=== PATIENT | female | born 1960 | race Caucasian/White ===

== ENCOUNTER → 2016-12-24 | Outpatient (CLI) | payer BC ==
[~2016-12-24] MED LIST: /PANT40TA; /WARF25TA; AZULFIDINE; BENADRYL; DARV100T; DIOV80TA; ENBREL; FERR325T; FOLI1TAB; HYDR-727; HYDROXYCHLOROQUINE; METHOTREXATE; OS CAL; OXYC10TA97; OXYCODONE; PREDPOW10; VALS80CA; VIT D; VITAMIN D50000 UNT
--- NOTE | 2016-12-24 11:06 | REP ---
Clinical: Left lower extremity pain and swelling. Technique: Blackmon scale and color Doppler evaluation using linear high frequency transducer. Findings: Ultrasound examination of the left lower extremity deep venous structures from the common femoral vein to the popliteal vein demonstrates normal compressibility flow and wave patterns in response to respiration and augmentation. There is no evidence for deep venous thrombosis. Impression: No evidence for deep venous thrombosis. Signed by Garret Rogers MD 12/24/2016 10:57 A
== END ==
LOC: M RAD 10:02
PROVIDERS: ATTEND Internal Medicine
DX: R60.0 Localized edema (principal)

== ENCOUNTER → 2016-12-27 | Outpatient (REF) | payer BC | LOC: M SFHCPLAZ 16:49 | PROVIDERS: ATTEND Nurse Practitioner Adult Health | DX: R68.89 Other general symptoms and signs (principal) ==

== ENCOUNTER → 2017-02-03 | Outpatient (CLI) | payer BC ==
[2017-02-03 19:45] LABS: ALT/SGPT 38 U/L (12-78); AST/SGOT 22 U/L (15-37); CREATININE FOR GFR 0.82 MG/DL (0.55-1.02); GLOMERULAR FILTRATION RATE > 60.0 (>51)
[2017-02-03 20:24] LABS: BASO % 0.5 % (0.0-1.0); EOS # 0.1 K/mm3 (0.0-0.50); EOS % 1.5 % (0.0-3.0); LYMPH # 1.5 K/mm3 (1.5-4.5); LYMPH % 28.1 % (24.0-44.0); MEAN CORPUSCULAR HEMOGLOBIN 28.4 pg (27.0-33.0); MEAN CORPUSCULAR HGB CONC 32.1 g/dl (32.0-36.5); MEAN CORPUSCULAR VOLUME 88.3 fl (80.0-96.0); MONO # 0.3 K/mm3 (0.0-0.8); MONO % 5.2 % (0.0-5.0); NEUTROPHILS # 3.2 K/mm3 (1.8-7.7); NEUTROPHILS % 62.4 % (36.0-66.0); RED CELL DISTRIBUTION WIDTH 16.2 % (11.5-14.5); WHITE BLOOD COUNT 5.1 K/mm3 (4.0-10.0)
== END ==
LOC: M WUC 16:31
PROVIDERS: ATTEND Physician Assistant Medical
DX: Z51.81 Encounter for therapeutic drug level monitoring (principal); Z79.899 Other long term (current) drug therapy; M06.09 Rheumatoid arthritis without rheumatoid factor, multiple sites; M06.332 Rheumatoid nodule, left wrist

== ENCOUNTER → 2017-05-10 | Outpatient (CLI) | payer BC ==
[2017-05-10 12:59] LABS: ALT/SGPT 35 U/L (12-78); AST/SGOT 27 U/L (15-37); BASO % 0.9 % (0.0-1.0); CREATININE FOR GFR 0.78 MG/DL (0.55-1.02); EOS # 0.1 K/mm3 (0.0-0.50); EOS % 2.2 % (0.0-3.0); GLOMERULAR FILTRATION RATE > 60.0 (>51); LYMPH # 1.1 K/mm3 (1.5-4.5); LYMPH % 24.5 % (24.0-44.0); MEAN CORPUSCULAR HEMOGLOBIN 29.8 pg (27.0-33.0); MEAN CORPUSCULAR HGB CONC 33.4 g/dl (32.0-36.5); MEAN CORPUSCULAR VOLUME 89.1 fl (80.0-96.0); MONO # 0.3 K/mm3 (0.0-0.8); MONO % 5.7 % (0.0-5.0); NEUTROPHILS # 2.8 K/mm3 (1.8-7.7); NEUTROPHILS % 64.5 % (36.0-66.0); RED CELL DISTRIBUTION WIDTH 15.9 % (11.5-14.5); WHITE BLOOD COUNT 4.4 K/mm3 (4.0-10.0)
== END ==
LOC: M WUC 10:33
PROVIDERS: ATTEND Physician Assistant Medical
DX: Z79.899 Other long term (current) drug therapy (principal)

== ENCOUNTER → 2017-05-10 | Outpatient (CLI) | payer BC ==
[2017-05-10 13:01] LABS: ALBUMIN 3.5 GM/DL (3.2-5.2); ALBUMIN/GLOBULIN RATIO 1.17 (1.00-1.93); ALKALINE PHOSPHATASE 81 U/L (45-117); ALT/SGPT 36 U/L (12-78); ANION GAP 6 MEQ/L (8-16); AST/SGOT 28 U/L (15-37); BILIRUBIN,TOTAL 0.8 MG/DL (0.2-1.0); BLOOD UREA NITROGEN 15 MG/DL (7-18); CALCIUM LEVEL 8.5 MG/DL (8.5-10.1); CARBON DIOXIDE LEVEL 29 MEQ/L (21-32); CHLORIDE LEVEL 107 MEQ/L (98-107); CHOLESTEROL LEVEL 165 MG/DL (<200); CREATININE FOR GFR 0.81 MG/DL (0.55-1.02); GLOMERULAR FILTRATION RATE > 60.0 (>51); GLUCOSE, FASTING 89 MG/DL (70-105); POTASSIUM SERUM 3.6 MEQ/L (3.5-5.1); SODIUM LEVEL 142 MEQ/L (136-145); TOTAL PROTEIN 6.5 GM/DL (6.4-8.2); TRIGLYCERIDES LEVEL 118 MG/DL (<150)
== END ==
LOC: M WUC 10:29
PROVIDERS: ATTEND Internal Medicine
DX: Z00.00 Encounter for general adult medical examination without abnormal findings (principal); I10 Essential (primary) hypertension; E78.00 Pure hypercholesterolemia, unspecified

== ENCOUNTER → 2017-10-15 | Outpatient (CLI) | payer BC ==
[2017-10-15 18:19] LABS: BASO # 0.1 10^3/uL (0.0-0.2); BASO % 0.8 % (0.0-1.0); EOS % 0.6 % (0.0-3.0); IMMATURE GRANULOCYTE % 0.6 % (0-0); LYMPH # 0.7 10^3/uL (1.5-4.5); LYMPH % 10.7 % (24.0-44.0); MEAN CORPUSCULAR HEMOGLOBIN 28.1 pg (27.0-33.0); MEAN CORPUSCULAR HGB CONC 31.4 g/dl (32.0-36.5); MEAN CORPUSCULAR VOLUME 89.3 fl (80.0-96.0); MONO # 0.3 10^3/uL (0.0-0.8); MONO % 4.6 % (0.0-5.0); NEUTROPHILS # 5.4 10^3/uL (1.8-7.7); NEUTROPHILS % 82.7 % (36.0-66.0); PLATELET COUNT, AUTOMATED 371 10^3/uL (150-450); RED CELL DISTRIBUTION WIDTH 16.4 % (11.5-14.5); WHITE BLOOD COUNT 6.6 10^3/uL (4.0-10.0)
[2017-10-15 18:26] LABS: ALT/SGPT 34 U/L (12-78); AST/SGOT 23 U/L (7-37); CREATININE FOR GFR 0.83 MG/DL (0.55-1.02); GLOMERULAR FILTRATION RATE > 60.0 (>51)
[2017-10-15 19:02] LABS: ERYTHROCYTE SEDIMENTATION RATE 60 mm/hr (0-30)
== END ==
LOC: M WUC 16:20
PROVIDERS: ATTEND Physician Assistant Medical
DX: Z51.81 Encounter for therapeutic drug level monitoring (principal); Z79.899 Other long term (current) drug therapy; M06.9 Rheumatoid arthritis, unspecified

== ENCOUNTER → 2018-02-11 | Outpatient (CLI) | payer BC ==
[2018-02-11 16:48] LABS: BASO % 0.7 % (0.0-1.0); EOS # 0.2 10^3/uL (0.0-0.50); EOS % 3.1 % (0.0-3.0); HEMATOCRIT 33.1 % (36.0-47.0); HEMOGLOBIN 10.3 g/dl (12.0-15.5); IMMATURE GRANULOCYTE % 0.4 % (0-3.0); LYMPH # 1.3 10^3/uL (1.5-4.5); LYMPH % 23.7 % (24.0-44.0); MEAN CORPUSCULAR HEMOGLOBIN 27.5 pg (27.0-33.0); MEAN CORPUSCULAR HGB CONC 31.1 g/dl (32.0-36.5); MEAN CORPUSCULAR VOLUME 88.5 fl (80.0-96.0); MONO # 0.5 10^3/uL (0.0-0.8); NEUTROPHILS # 3.4 10^3/uL (1.8-7.7); NEUTROPHILS % 63.1 % (36.0-66.0); PLATELET COUNT, AUTOMATED 340 10^3/uL (150-450); RED BLOOD COUNT 3.74 10^6/uL (4.00-5.40); RED CELL DISTRIBUTION WIDTH 17.2 % (11.5-14.5); WHITE BLOOD COUNT 5.4 10^3/uL (4.0-10.0)
[2018-02-11 17:17] LABS: ERYTHROCYTE SEDIMENTATION RATE 77 mm/hr (0-30)
[2018-02-11 17:21] LABS: ALT/SGPT 35 U/L (12-78); AST/SGOT 21 U/L (7-37); C REACTIVE PROTEIN QUANTITATIV 0.75 MG/DL (0.00-0.30); CREATININE FOR GFR 0.79 MG/DL (0.55-1.30); GLOMERULAR FILTRATION RATE > 60.0 (>51)
== END ==
LOC: M LAB 16:06
DX: Z51.81 Encounter for therapeutic drug level monitoring (principal); Z79.899 Other long term (current) drug therapy
CPT/HCPCS: 84460

== ENCOUNTER → 2018-06-03 | Outpatient (CLI) | payer BC ==
[2018-06-03 17:44] LABS: ALBUMIN 3.7 GM/DL (3.2-5.2); ALBUMIN/GLOBULIN RATIO 0.93 (1.00-1.93); ALKALINE PHOSPHATASE 90 U/L (45-117); ALT/SGPT 37 U/L (12-78); ANION GAP 6 MEQ/L (8-16); AST/SGOT 21 U/L (7-37); BILIRUBIN,TOTAL 0.8 MG/DL (0.2-1.0); BLOOD UREA NITROGEN 14 MG/DL (7-18); CARBON DIOXIDE LEVEL 28 MEQ/L (21-32); CHLORIDE LEVEL 107 MEQ/L (98-107); CREATININE FOR GFR 0.89 MG/DL (0.55-1.30); GLOMERULAR FILTRATION RATE > 60.0 (>51); GLUCOSE, FASTING 109 MG/DL (70-100); MAGNESIUM LEVEL 2.2 MG/DL (1.8-2.4); POTASSIUM SERUM 3.5 MEQ/L (3.5-5.1); SODIUM LEVEL 141 MEQ/L (136-145); TOTAL PROTEIN 7.7 GM/DL (6.4-8.2)
[2018-06-05 06:56] LABS: TOTAL 25(OH) VITAMIN D 78.4 NG/ML (30.0-100.0)
== END ==
LOC: M WUC 15:39
DX: I10 Essential (primary) hypertension (principal); E55.9 Vitamin D deficiency, unspecified
CPT/HCPCS: 83735

== ENCOUNTER → 2018-06-07 | Outpatient (REF) | payer BC ==
[2018-06-09 14:15] LABS: HPV HYBRID CAPTURE II Negative (Negative)
== END ==
LOC: M SFHCWAGY 16:16
DX: Z12.4 Encounter for screening for malignant neoplasm of cervix (principal)
CPT/HCPCS: G0123

== ENCOUNTER → 2018-07-27 | Outpatient (CLI) | payer BC | LOC: M WUC 16:06 | DX: R05 Cough (principal) | CPT/HCPCS: 71046 ==

== ENCOUNTER → 2018-07-27 | Outpatient (REF) ==
[2018-07-30 00:20] LABS: QUANTIFERON GOLD TB Negative (Negative); TB Test (QFT) Antigen 0.04 IU/mL (.); TB Test (QFT) Antigen Minus Ni <0.01 IU/mL (.); TB Test (QFT) Mitogen 9.04 IU/mL (.); TB Test (QFT) Nil 0.06 IU/mL (.)
== END ==
LOC: M WUC 16:17
DX: Z00.00 Encounter for general adult medical examination without abnormal findings (principal)

== ENCOUNTER → 2018-07-27 | Outpatient (CLI) | payer BC ==
[2018-07-27 20:16] LABS: BASO % 0.5 % (0.0-1.0); EOS # 0.1 10^3/uL (0.0-0.50); EOS % 2.2 % (0.0-3.0); HEMATOCRIT 33.7 % (36.0-47.0); HEMOGLOBIN 10.3 g/dl (12.0-15.5); IMMATURE GRANULOCYTE % 0.5 % (0-3.0); LYMPH # 1.5 10^3/uL (1.5-4.5); LYMPH % 22.9 % (24.0-44.0); MEAN CORPUSCULAR HEMOGLOBIN 26.8 pg (27.0-33.0); MEAN CORPUSCULAR HGB CONC 30.6 g/dl (32.0-36.5); MEAN CORPUSCULAR VOLUME 87.8 fl (80.0-96.0); MONO # 0.5 10^3/uL (0.0-0.8); NEUTROPHILS # 4.3 10^3/uL (1.8-7.7); NEUTROPHILS % 65.9 % (36.0-66.0); PLATELET COUNT, AUTOMATED 347 10^3/uL (150-450); RED BLOOD COUNT 3.84 10^6/uL (4.00-5.40); WHITE BLOOD COUNT 6.5 10^3/uL (4.0-10.0)
[2018-07-27 20:47] LABS: ERYTHROCYTE SEDIMENTATION RATE 74 mm/hr (0-30)
[2018-07-27 20:50] LABS: ALT/SGPT 54 U/L (12-78); AST/SGOT 37 U/L (7-37); C REACTIVE PROTEIN QUANTITATIV 1.16 MG/DL (0.00-0.30); CREATININE FOR GFR 0.76 MG/DL (0.55-1.30); GLOMERULAR FILTRATION RATE > 60.0 (>51)
== END ==
LOC: M WUC 16:10
DX: Z51.81 Encounter for therapeutic drug level monitoring (principal); Z79.52 Long term (current) use of systemic steroids; Z79.899 Other long term (current) drug therapy; M06.9 Rheumatoid arthritis, unspecified
CPT/HCPCS: 84460

== ENCOUNTER → 2018-10-04 | Outpatient (CLI) | payer BC | LOC: M RAD 14:57 | DX: M79.662 Pain in left lower leg (principal) | CPT/HCPCS: 93971 ==

== ENCOUNTER → 2018-11-13 | Outpatient (CLI) | payer BC ==
[2018-11-13 19:39] LABS: BASO % 0.6 % (0.0-1.0); EOS # 0.1 10^3/uL (0.0-0.50); EOS % 2.2 % (0.0-3.0); HEMOGLOBIN 10.6 g/dl (12.0-15.5); LYMPH # 1.5 10^3/uL (1.5-4.5); LYMPH % 27.9 % (24.0-44.0); MEAN CORPUSCULAR HEMOGLOBIN 26.9 pg (27.0-33.0); MEAN CORPUSCULAR HGB CONC 31.2 g/dl (32.0-36.5); MEAN CORPUSCULAR VOLUME 86.3 fl (80.0-96.0); MONO # 0.5 10^3/uL (0.0-0.8); NEUTROPHILS # 3.3 10^3/uL (1.8-7.7); NEUTROPHILS % 60.1 % (36.0-66.0); PLATELET COUNT, AUTOMATED 350 10^3/uL (150-450); RED BLOOD COUNT 3.94 10^6/uL (4.00-5.40); WHITE BLOOD COUNT 5.4 10^3/uL (4.0-10.0)
[2018-11-13 19:50] LABS: ALT/SGPT 38 U/L (12-78); C REACTIVE PROTEIN QUANTITATIV 1.01 MG/DL (0.00-0.30); CREATININE FOR GFR 0.91 MG/DL (0.55-1.30); GLOMERULAR FILTRATION RATE > 60.0 (>51)
[2018-11-13 20:15] LABS: ERYTHROCYTE SEDIMENTATION RATE 50 mm/hr (0-30)
== END ==
LOC: M WUC 16:35
PROVIDERS: ATTEND Internal Medicine Rheumatology
DX: Z79.899 Other long term (current) drug therapy (principal)

== ENCOUNTER → 2018-11-13 | Outpatient (CLI) | payer BC ==
--- NOTE | 2018-11-14 02:54 | REP ---
Clinical: Abnormal chest x-ray. Follow-up. Technique: PA and lateral. Comparison: 07/27/2018. Findings: Mediastinum and visualized cardiac silhouette are within normal limits and stable. Lung licea demonstrate chronic-appearing bibasilar changes primarily suspected within right middle lobe and lingula. No effusion. No pneumothorax. Degenerative changes to the thoracic spine and right shoulder noted. Impression: Chronic basilar changes suggested. If the patient remains symptomatic consider chest CT for further investigation. Electronically Signed by Garret Rogers MD 11/14/2018 02:46 A
== END ==
LOC: M WUC 16:33
PROVIDERS: ATTEND Internal Medicine
DX: R91.8 Other nonspecific abnormal finding of lung field (principal)

== ENCOUNTER → 2018-12-14 | Outpatient (CLI) | payer BC ==
--- NOTE | 2018-12-14 15:59 | PFTRPT ---
Height: 64.00 Inches Weight: 245.00 Lbs BSA: 2.13 Diagnosis: R06.02 DATE OF PROCEDURE: 12/14/2018 ORDERED BY: Margo Rivas Spirometry: Pre and post bronchodilator study of excellent technical quality. Forced vital capacity reduced. FEV1 in proportion. Obstructive index is, therefore, normal. Flow Volume Loop: Expiratory limb of the flow volume loop does suggest at least some degree of nonspecific flow rate limitation. No significant bronchodilator response is identified. Lung Volumes: Total lung capacity normal. Residual volume borderline for air trapping. Diffusing Capacity: Diffusing capacity is reduced but does correct for alveolar volume. Hemoglobin: Hemoglobin is mildly reduced at 11. Airway Mechanics: Airway resistance and conductance are normal. IMPRESSION: Air trapping with diffusing capacity impairment and mild anemia. Please correlate clinically. MTDD
== END ==
LOC: M CARPUL 14:41
PROVIDERS: ATTEND Nurse Practitioner Adult Health
DX: R06.02 Shortness of breath (principal); R91.8 Other nonspecific abnormal finding of lung field

== ENCOUNTER → 2019-02-10 | Outpatient (CLI) | payer BC ==
[~2019-02-10] MED LIST changes: -/PANT40TA; -/WARF25TA; +COUM1TAB18; +PROT1TAB2
[2019-02-10 18:44] LABS: BASO % 0.6 % (0.0-1.0); EOS # 0.1 10^3/uL (0.0-0.50); EOS % 2.2 % (0.0-3.0); HEMATOCRIT 31.9 % (36.0-47.0); HEMOGLOBIN 10.1 g/dl (12.0-15.5); LYMPH # 1.8 10^3/uL (1.5-4.5); LYMPH % 28.4 % (24.0-44.0); MEAN CORPUSCULAR HEMOGLOBIN 27.7 pg (27.0-33.0); MEAN CORPUSCULAR HGB CONC 31.7 g/dl (32.0-36.5); MEAN CORPUSCULAR VOLUME 87.6 fl (80.0-96.0); MONO # 0.6 10^3/uL (0.0-0.8); MONO % 9.5 % (0.0-5.0); NEUTROPHILS # 3.8 10^3/uL (1.8-7.7); NEUTROPHILS % 58.7 % (36.0-66.0); PLATELET COUNT, AUTOMATED 324 10^3/uL (150-450); RED BLOOD COUNT 3.64 10^6/uL (4.00-5.40); WHITE BLOOD COUNT 6.5 10^3/uL (4.0-10.0)
[2019-02-10 19:04] LABS: ALT/SGPT 41 U/L (12-78); C REACTIVE PROTEIN QUANTITATIV 0.65 MG/DL (0.00-0.30); CREATININE FOR GFR 0.82 MG/DL (0.55-1.30); GLOMERULAR FILTRATION RATE > 60.0 (>51)
[2019-02-10 19:50] LABS: ERYTHROCYTE SEDIMENTATION RATE 52 mm/hr (0-30)
== END ==
LOC: M WUC 16:24
PROVIDERS: ATTEND Internal Medicine Rheumatology
DX: M06.09 Rheumatoid arthritis without rheumatoid factor, multiple sites (principal); Z79.899 Other long term (current) drug therapy; Z79.52 Long term (current) use of systemic steroids

== ENCOUNTER → 2019-06-05 | Outpatient (CLI) | payer BC ==
[2019-06-05 13:23] LABS: ALBUMIN 3.4 GM/DL (3.2-5.2); ALT/SGPT 29 U/L (12-78); BILIRUBIN,TOTAL 0.7 MG/DL (0.2-1.0); BLOOD UREA NITROGEN 18 MG/DL (7-18); CALCIUM LEVEL 8.4 MG/DL (8.5-10.1); CARBON DIOXIDE LEVEL 28 MEQ/L (21-32); CHLORIDE LEVEL 107 MEQ/L (98-107); CHOLESTEROL LEVEL 169 MG/DL (<200); CHOLESTEROL RISK RATIO 3.072 (<5); CREATININE FOR GFR 0.89 MG/DL (0.55-1.30); GLOMERULAR FILTRATION RATE > 60.0 (>51); GLUCOSE, FASTING 90 MG/DL (70-100); HDL CHOLESTEROL 55 MG/DL (>40); LDL CHOLESTEROL 98 MG/DL (<100); MAGNESIUM LEVEL 2.1 MG/DL (1.8-2.4); NON-HDL-C 114 MG/DL; POTASSIUM SERUM 3.8 MEQ/L (3.5-5.1); SODIUM LEVEL 142 MEQ/L (136-145); TOTAL PROTEIN 7.1 GM/DL (6.4-8.2); TRIGLYCERIDES LEVEL 79 MG/DL (<150)
== END ==
LOC: M WUC 12:03
PROVIDERS: ATTEND Internal Medicine
DX: I10 Essential (primary) hypertension (principal); E78.00 Pure hypercholesterolemia, unspecified

== ENCOUNTER → 2019-06-05 | Outpatient (CLI) | payer BC ==
[2019-06-05 12:57] LABS: BASO % 0.8 % (0.0-1.0); EOS # 0.1 10^3/uL (0.0-0.50); EOS % 2.8 % (0.0-3.0); HEMATOCRIT 32.5 % (36.0-47.0); HEMOGLOBIN 10.1 g/dl (12.0-15.5); LYMPH # 1.1 10^3/uL (1.5-4.5); LYMPH % 22.3 % (24.0-44.0); MEAN CORPUSCULAR HEMOGLOBIN 27.4 pg (27.0-33.0); MEAN CORPUSCULAR HGB CONC 31.1 g/dl (32.0-36.5); MEAN CORPUSCULAR VOLUME 88.1 fl (80.0-96.0); MONO # 0.4 10^3/uL (0.0-0.8); MONO % 8.1 % (0.0-5.0); NEUTROPHILS # 3.1 10^3/uL (1.8-7.7); NEUTROPHILS % 65.6 % (36.0-66.0); PLATELET COUNT, AUTOMATED 313 10^3/uL (150-450); RED BLOOD COUNT 3.69 10^6/uL (4.00-5.40); WHITE BLOOD COUNT 4.7 10^3/uL (4.0-10.0)
[2019-06-05 13:20] LABS: ALT/SGPT 30 U/L (12-78); CREATININE FOR GFR 0.93 MG/DL (0.55-1.30); GLOMERULAR FILTRATION RATE > 60.0 (>51)
[2019-06-05 14:04] LABS: ERYTHROCYTE SEDIMENTATION RATE 62 mm/hr (0-30)
== END ==
LOC: M WUC 12:00
PROVIDERS: ATTEND Physician Assistant Medical
DX: Z79.899 Other long term (current) drug therapy (principal)

== ENCOUNTER → 2019-08-11 | Outpatient (CLI) | payer BC ==
[2019-08-11 18:10] LABS: BASO % 0.8 % (0.0-1.0); EOS # 0.1 10^3/uL (0.0-0.5); EOS % 2.7 % (0.0-3.0); HEMATOCRIT 32.3 % (36.0-47.0); HEMOGLOBIN 9.9 g/dl (12.0-15.5); LYMPH # 1.3 10^3/uL (1.5-5.0); LYMPH % 25.8 % (24.0-44.0); MEAN CORPUSCULAR HEMOGLOBIN 26.3 pg (27.0-33.0); MEAN CORPUSCULAR HGB CONC 30.7 g/dl (32.0-36.5); MEAN CORPUSCULAR VOLUME 85.9 fl (80.0-96.0); MONO # 0.6 10^3/uL (0.0-0.8); MONO % 11.2 % (0.0-5.0); NEUTROPHILS # 3.1 10^3/uL (1.5-8.5); NEUTROPHILS % 58.9 % (36.0-66.0); PLATELET COUNT, AUTOMATED 319 10^3/uL (150-450); RED BLOOD COUNT 3.76 10^6/uL (4.00-5.40); WHITE BLOOD COUNT 5.2 10^3/uL (4.0-10.0)
[2019-08-11 18:15] LABS: ALT/SGPT 32 U/L (12-78); C REACTIVE PROTEIN QUANTITATIV 0.79 MG/DL (0.00-0.30); CREATININE FOR GFR 0.88 MG/DL (0.55-1.30); GLOMERULAR FILTRATION RATE > 60.0 (>51)
[2019-08-11 18:58] LABS: ERYTHROCYTE SEDIMENTATION RATE 54 mm/hr (0-30)
== END ==
LOC: M WUC 16:01
PROVIDERS: ATTEND Physician Assistant Medical
DX: Z79.899 Other long term (current) drug therapy (principal)

== ENCOUNTER → 2019-12-01 | Outpatient (CLI) | payer BC ==
[2019-12-01 17:50] LABS: BASO # 0.1 10^3/uL (0.0-0.2); BASO % 0.8 % (0.0-1.0); EOS # 0.1 10^3/uL (0.0-0.5); EOS % 1.9 % (0.0-3.0); HEMATOCRIT 34.6 % (36.0-47.0); HEMOGLOBIN 10.4 g/dl (12.0-15.5); LYMPH # 1.9 10^3/uL (1.5-5.0); MEAN CORPUSCULAR HEMOGLOBIN 25.2 pg (27.0-33.0); MEAN CORPUSCULAR HGB CONC 30.1 g/dl (32.0-36.5); MEAN CORPUSCULAR VOLUME 83.8 fl (80.0-96.0); MONO # 0.5 10^3/uL (0.0-0.8); MONO % 7.6 % (0.0-5.0); NEUTROPHILS # 3.8 10^3/uL (1.5-8.5); NEUTROPHILS % 59.2 % (36.0-66.0); PLATELET COUNT, AUTOMATED 381 10^3/uL (150-450); RED BLOOD COUNT 4.13 10^6/uL (4.00-5.40); WHITE BLOOD COUNT 6.4 10^3/uL (4.0-10.0)
[2019-12-01 17:58] LABS: ALT/SGPT 37 U/L (12-78); CREATININE FOR GFR 0.88 MG/DL (0.55-1.30); GLOMERULAR FILTRATION RATE > 60.0 (>51)
[2019-12-01 18:46] LABS: ERYTHROCYTE SEDIMENTATION RATE 92 mm/hr (0-30)
== END ==
LOC: M WUC 15:02
PROVIDERS: ATTEND Physician Assistant Medical
DX: M06.09 Rheumatoid arthritis without rheumatoid factor, multiple sites (principal); Z79.52 Long term (current) use of systemic steroids

== ENCOUNTER → 2019-12-04 | Outpatient (REF) | payer BC ==
[2019-12-04 18:34] LABS: APPEARANCE, URINE HAZY (CLEAR); BACTERIA, URINE AUTO 1+ (NEGATIVE); BILIRUBIN, URINE AUTO NEGATIVE (NEGATIVE); BLOOD, URINE BLOOD NEGATIVE (NEGATIVE); COLOR, URINE YELLOW (YELLOW); GLUCOSE, URINE (UA) AUTO NEGATIVE (NEGATIVE); KETONE, URINE AUTO NEGATIVE (NEGATIVE); LEUKOCYTE ESTERASE, URINE AUTO TRACE (NEGATIVE); MUCUS, URINE SMALL (NEGATIVE); NITRITE, URINE AUTO NEGATIVE (NEGATIVE); PROTEIN, URINE AUTO NEGATIVE (NEGATIVE); RBC, URINE AUTO 2 /HPF (0-3); SPECIFIC GRAVITY URINE AUTO 1.018 (1.002-1.035); SQUAMOUS EPITHELIAL CELL UR AU 0 /HPF (0-6); UROBILINOGEN, URINE AUTO 0.2 mg/dL (0.0-2.0); WBC, URINE AUTO 10 /HPF (0-3)
== END ==
LOC: M SFHCPLAZ 16:39
PROVIDERS: ATTEND Internal Medicine
DX: R30.0 Dysuria (principal)

== ENCOUNTER → 2020-05-16 | Outpatient (CLI) | payer BC ==
[2020-05-16 13:25] LABS: BASO % 0.6 % (0.0-1.0); EOS # 0.1 10^3/uL (0.0-0.5); EOS % 1.7 % (0.0-3.0); HEMOGLOBIN 8.7 g/dl (12.0-15.5); LYMPH # 0.8 10^3/uL (1.5-5.0); LYMPH % 18.2 % (24.0-44.0); MEAN CORPUSCULAR HEMOGLOBIN 25.4 pg (27.0-33.0); MEAN CORPUSCULAR HGB CONC 31.1 g/dl (32.0-36.5); MEAN CORPUSCULAR VOLUME 81.6 fl (80.0-96.0); MONO # 0.4 10^3/uL (0.0-0.8); MONO % 8.2 % (0.0-5.0); NEUTROPHILS # 3.3 10^3/uL (1.5-8.5); NEUTROPHILS % 70.9 % (36.0-66.0); PLATELET COUNT, AUTOMATED 357 10^3/uL (150-450); RED BLOOD COUNT 3.43 10^6/uL (4.00-5.40); WHITE BLOOD COUNT 4.6 10^3/uL (4.0-10.0)
[2020-05-16 13:47] LABS: ALT/SGPT 25 U/L (12-78); C REACTIVE PROTEIN QUANTITATIV 1.07 MG/DL (0.00-0.30); CREATININE FOR GFR 0.86 MG/DL (0.55-1.30); GLOMERULAR FILTRATION RATE > 60.0 (>51)
[2020-05-16 13:51] LABS: ALBUMIN 3.4 GM/DL (3.2-5.2); ALT/SGPT 23 U/L (12-78); BLOOD UREA NITROGEN 11 MG/DL (7-18); CALCIUM LEVEL 8.8 MG/DL (8.5-10.1); CARBON DIOXIDE LEVEL 27 MEQ/L (21-32); CHLORIDE LEVEL 106 MEQ/L (98-107); CREATININE FOR GFR 0.83 MG/DL (0.55-1.30); ERYTHROCYTE SEDIMENTATION RATE 67 mm/hr (0-30); GLOMERULAR FILTRATION RATE > 60.0 (>51); GLUCOSE, FASTING 91 MG/DL (70-100); MAGNESIUM LEVEL 2.1 MG/DL (1.8-2.4); POTASSIUM SERUM 3.4 MEQ/L (3.5-5.1); SODIUM LEVEL 139 MEQ/L (136-145); TOTAL PROTEIN 7.2 GM/DL (6.4-8.2)
== END ==
LOC: M PLALAB 12:04
PROVIDERS: ATTEND Physician Assistant Medical
DX: M06.09 Rheumatoid arthritis without rheumatoid factor, multiple sites (principal); I10 Essential (primary) hypertension; E55.9 Vitamin D deficiency, unspecified; Z79.52 Long term (current) use of systemic steroids

== ENCOUNTER → 2020-08-09 | Outpatient (CLI) | payer BC ==
[2020-08-09 18:51] LABS: BASO % 0.7 % (0.0-1.0); EOS # 0.1 10^3/uL (0.0-0.5); EOS % 2.2 % (0.0-3.0); HEMATOCRIT 32.2 % (36.0-47.0); HEMOGLOBIN 9.5 g/dl (12.0-15.5); LYMPH # 1.1 10^3/uL (1.5-5.0); LYMPH % 19.8 % (24.0-44.0); MEAN CORPUSCULAR HEMOGLOBIN 24.9 pg (27.0-33.0); MEAN CORPUSCULAR HGB CONC 29.5 g/dl (32.0-36.5); MEAN CORPUSCULAR VOLUME 84.3 fl (80.0-96.0); MONO # 0.5 10^3/uL (0.0-0.8); NEUTROPHILS # 3.8 10^3/uL (1.5-8.5); NEUTROPHILS % 67.8 % (36.0-66.0); PLATELET COUNT, AUTOMATED 360 10^3/uL (150-450); RED BLOOD COUNT 3.82 10^6/uL (4.00-5.40); WHITE BLOOD COUNT 5.6 10^3/uL (4.0-10.0)
[2020-08-10 05:25] LABS: PLATELET ESTIMATE NORMAL (NORMAL)
== END ==
LOC: M WUC 15:13
PROVIDERS: ATTEND Internal Medicine
DX: D50.0 Iron deficiency anemia secondary to blood loss (chronic) (principal)

== ENCOUNTER → 2020-08-09 | Outpatient (CLI) | payer BC ==
[2020-08-09 18:47] LABS: ALT/SGPT 30 U/L (12-78); C REACTIVE PROTEIN QUANTITATIV 0.96 MG/DL (0.00-0.30); CREATININE FOR GFR 0.86 MG/DL (0.55-1.30); GLOMERULAR FILTRATION RATE > 60.0 (>51)
[2020-08-09 18:51] LABS: BASO % 0.6 % (0.0-1.0); EOS # 0.1 10^3/uL (0.0-0.5); EOS % 2.4 % (0.0-3.0); HEMATOCRIT 32.1 % (36.0-47.0); HEMOGLOBIN 9.5 g/dl (12.0-15.5); LYMPH # 1.1 10^3/uL (1.5-5.0); LYMPH % 19.9 % (24.0-44.0); MEAN CORPUSCULAR HEMOGLOBIN 24.9 pg (27.0-33.0); MEAN CORPUSCULAR HGB CONC 29.6 g/dl (32.0-36.5); MEAN CORPUSCULAR VOLUME 84.3 fl (80.0-96.0); MONO # 0.5 10^3/uL (0.0-0.8); MONO % 9.2 % (0.0-5.0); NEUTROPHILS # 3.7 10^3/uL (1.5-8.5); NEUTROPHILS % 67.2 % (36.0-66.0); PLATELET COUNT, AUTOMATED 364 10^3/uL (150-450); RED BLOOD COUNT 3.81 10^6/uL (4.00-5.40); WHITE BLOOD COUNT 5.4 10^3/uL (4.0-10.0)
[2020-08-09 19:33] LABS: ERYTHROCYTE SEDIMENTATION RATE 54 mm/hr (0-30)
== END ==
LOC: M WUC 15:09
PROVIDERS: ATTEND Nurse Practitioner
DX: Z51.81 Encounter for therapeutic drug level monitoring (principal); Z79.899 Other long term (current) drug therapy; M06.9 Rheumatoid arthritis, unspecified

== ENCOUNTER → 2020-12-08 | Outpatient (CLI) | payer BC ==
[2020-12-08 07:20] LABS: BASO % 0.7 % (0.0-1.0); EOS # 0.1 10^3/uL (0.0-0.5); EOS % 2.2 % (0.0-3.0); HEMATOCRIT 30.3 % (36.0-47.0); HEMOGLOBIN 9.1 g/dl (12.0-15.5); LYMPH # 1.5 10^3/uL (1.5-5.0); LYMPH % 24.7 % (24.0-44.0); MEAN CORPUSCULAR HEMOGLOBIN 24.1 pg (27.0-33.0); MEAN CORPUSCULAR VOLUME 80.2 fl (80.0-96.0); MONO # 0.4 10^3/uL (0.0-0.8); MONO % 7.3 % (0.0-5.0); NEUTROPHILS # 3.8 10^3/uL (1.5-8.5); NEUTROPHILS % 64.8 % (36.0-66.0); PLATELET COUNT, AUTOMATED 377 10^3/uL (150-450); RED BLOOD COUNT 3.78 10^6/uL (4.00-5.40); WHITE BLOOD COUNT 5.9 10^3/uL (4.0-10.0)
[2020-12-08 07:44] LABS: ALBUMIN 3.6 GM/DL (3.2-5.2); ALT/SGPT 29 U/L (12-78); BILIRUBIN,TOTAL 0.5 MG/DL (0.2-1.0); BLOOD UREA NITROGEN 20 MG/DL (7-18); CALCIUM LEVEL 8.8 MG/DL (8.5-10.1); CARBON DIOXIDE LEVEL 27 MEQ/L (21-32); CHLORIDE LEVEL 103 MEQ/L (98-107); CREATININE FOR GFR 0.84 MG/DL (0.55-1.30); FERRITIN 9 NG/ML (8-252); GLOMERULAR FILTRATION RATE > 60.0 (>51); GLUCOSE, FASTING 114 MG/DL (70-100); IRON (FE) 21 UG/DL (50-170); PERCENT SATURATION 5.3 % (13.2-45.0); POTASSIUM SERUM 3.6 MEQ/L (3.5-5.1); SODIUM LEVEL 139 MEQ/L (136-145); TOTAL IRON BINDING CAPACITY 393 UG/DL (250-450); TOTAL PROTEIN 7.5 GM/DL (6.4-8.2)
[2020-12-08 13:35] LABS: VITAMIN B12 LEVEL 392 PG/ML
[2020-12-08 13:36] LABS: FOLATE > 24.0 NG/ML
== END ==
LOC: M LAB 06:38
PROVIDERS: ATTEND Internal Medicine
DX: I10 Essential (primary) hypertension (principal); G47.30 Sleep apnea, unspecified; D50.9 Iron deficiency anemia, unspecified

== ENCOUNTER → 2020-12-08 | Outpatient (CLI) | payer BC ==
[2020-12-08 07:15] LABS: BASO # 0.1 10^3/uL (0.0-0.2); BASO % 0.8 % (0.0-1.0); EOS # 0.1 10^3/uL (0.0-0.5); EOS % 2.2 % (0.0-3.0); HEMATOCRIT 30.4 % (36.0-47.0); LYMPH # 1.4 10^3/uL (1.5-5.0); LYMPH % 24.1 % (24.0-44.0); MEAN CORPUSCULAR HEMOGLOBIN 23.9 pg (27.0-33.0); MEAN CORPUSCULAR HGB CONC 29.6 g/dl (32.0-36.5); MEAN CORPUSCULAR VOLUME 80.6 fl (80.0-96.0); MONO # 0.4 10^3/uL (0.0-0.8); MONO % 7.2 % (0.0-5.0); NEUTROPHILS # 3.9 10^3/uL (1.5-8.5); NEUTROPHILS % 65.4 % (36.0-66.0); PLATELET COUNT, AUTOMATED 369 10^3/uL (150-450); RED BLOOD COUNT 3.77 10^6/uL (4.00-5.40)
[2020-12-08 07:42] LABS: ALT/SGPT 26 U/L (12-78); C REACTIVE PROTEIN QUANTITATIV 0.99 MG/DL (0.00-0.30); CREATININE FOR GFR 0.86 MG/DL (0.55-1.30); GLOMERULAR FILTRATION RATE > 60.0 (>51)
[2020-12-08 08:44] LABS: ERYTHROCYTE SEDIMENTATION RATE 67 mm/hr (0-30)
== END ==
LOC: M LAB 06:41
PROVIDERS: ATTEND Nurse Practitioner
DX: M06.09 Rheumatoid arthritis without rheumatoid factor, multiple sites (principal); Z79.899 Other long term (current) drug therapy

== ENCOUNTER → 2020-12-15 | Outpatient (CLI) | payer BC ==
--- NOTE | 2020-12-15 14:14 | REP ---
INDICATION: LOOSE STOOLS COMPARISON: None. TECHNIQUE: Real time jerome scale ultrasound examination using curved array transducer. FINDINGS: Liver is echogenic suggesting fatty infiltration without focal hepatic lesions identified. Pancreas is incompletely evaluated due to interposed bowel gas. The gallbladder is normal and without gallstones, wall thickening, or pericholecystic fluid. No biliary ductal dilatation is appreciated and the common bile duct measures 3.3 mm diameter. Right kidney is normal in reniform shape without hydronephrosis and measures 9.6 x 6.0 x 4.1 cm. No ascites in the visualized right upper quadrant. IMPRESSION: Hepatosteatosis. <Electronically signed by Garret Rogers > 12/15/20 [id number]
== END ==
LOC: M RAD 08:14
PROVIDERS: ATTEND Internal Medicine
DX: R19.5 Other fecal abnormalities (principal); K76.0 Fatty (change of) liver, not elsewhere classified

== ENCOUNTER → 2021-02-20 | Outpatient (CLI) | payer BC ==
[2021-02-20 15:58] LABS: BASO % 0.9 % (0.0-1.0); EOS # 0.1 10^3/uL (0.0-0.5); EOS % 3.1 % (0.0-3.0); HEMATOCRIT 27.8 % (36.0-47.0); HEMOGLOBIN 8.3 g/dl (12.0-15.5); LYMPH # 1.2 10^3/uL (1.5-5.0); LYMPH % 29.2 % (24.0-44.0); MEAN CORPUSCULAR HGB CONC 29.9 g/dl (32.0-36.5); MEAN CORPUSCULAR VOLUME 80.3 fl (80.0-96.0); MONO # 0.4 10^3/uL (0.0-0.8); MONO % 10.1 % (2.0-8.0); NEUTROPHILS # 2.4 10^3/uL (1.5-8.5); PLATELET COUNT, AUTOMATED 368 10^3/uL (150-450); RED BLOOD COUNT 3.46 10^6/uL (4.00-5.40); WHITE BLOOD COUNT 4.3 10^3/uL (4.0-10.0)
[2021-02-20 16:20] LABS: ALT/SGPT 29 U/L (12-78); BLOOD UREA NITROGEN 17 MG/DL (7-18); C REACTIVE PROTEIN QUANTITATIV 0.74 MG/DL (0.00-0.30); CREATININE FOR GFR 0.78 MG/DL (0.55-1.30); GLOMERULAR FILTRATION RATE > 60.0 (>51)
[2021-02-20 16:28] LABS: ERYTHROCYTE SEDIMENTATION RATE 62 mm/hr (0-30)
== END ==
LOC: M WUC 13:33
PROVIDERS: ATTEND Nurse Practitioner
DX: M06.09 Rheumatoid arthritis without rheumatoid factor, multiple sites (principal); Z79.899 Other long term (current) drug therapy

== ENCOUNTER 2021-03-02 11:44 | Outpatient (CLI) | payer BC ==
[~2021-03-02] VITALS: Ht 162.6 cm; Wt 109.0 kg
[~2021-03-02 11:44] MED LIST changes: +IRON SUCROSE 25 MG in NS 23.75 ML IV ONE; +IRON SUCROSE 25 MG in NS 50 ML IV ONE; +IRON SUCROSE 75 MG in NS 100 ML IV ONE; +IRON SUCROSE IV ONE; +NS IV ONE; -VALS80CA; +VALS80CA PO
[2021-03-02 11:50] VITALS: BP 159/79
[2021-03-02 13:00] VITALS: BP 113/65
[2021-03-02 13:43] VITALS: BP 118/63
[2021-03-02 14:00] VITALS: BP 120/68
== END 2021-03-02 14:40 | disposition home or self-care (01) ==
LOC: M INFU 11:44
PROVIDERS: ATTEND Internal Medicine
DX: D64.9 Anemia, unspecified (principal); Z88.6 Allergy status to analgesic agent
CPT/HCPCS: 96365; J1756

== ENCOUNTER 2021-03-09 12:41 | Outpatient (CLI) | payer BC ==
[~2021-03-09] VITALS: Ht 162.6 cm; Wt 109.0 kg
[~2021-03-09 12:41] MED LIST changes: +IRON SUCROSE 200 MG in NS 200 ML IV ONE; -IRON SUCROSE 25 MG in NS 23.75 ML IV ONE; -IRON SUCROSE 25 MG in NS 50 ML IV ONE; -IRON SUCROSE 75 MG in NS 100 ML IV ONE; -IRON SUCROSE IV ONE; -NS IV ONE
[2021-03-09 13:52] VITALS: BP 143/70
[2021-03-09 14:43] VITALS: BP 110/65
[2021-03-09 15:35] VITALS: BP 117/57
== END 2021-03-09 15:45 | disposition home or self-care (01) ==
LOC: M INFU 12:41
PROVIDERS: ATTEND Internal Medicine
DX: D64.9 Anemia, unspecified (principal); Z88.6 Allergy status to analgesic agent
CPT/HCPCS: 96365; 96366; J1756

== ENCOUNTER 2021-03-16 13:35 | Outpatient (CLI) | payer BC ==
[~2021-03-16] VITALS: Ht 162.6 cm; Wt 109.0 kg
[2021-03-16 13:45] VITALS: BP 112/68
[2021-03-16 14:45] VITALS: BP 100/64
[2021-03-16 15:59] VITALS: BP 119/65
== END 2021-03-16 16:00 | disposition home or self-care (01) ==
LOC: M INFU 13:35
PROVIDERS: ATTEND Internal Medicine
DX: D64.9 Anemia, unspecified (principal); Z88.6 Allergy status to analgesic agent
CPT/HCPCS: 96365; 96366; J1756

== ENCOUNTER → 2021-05-26 | Outpatient (CLI) | payer BC ==
[~2021-05-26] MED LIST changes: -IRON SUCROSE 200 MG in NS 200 ML IV ONE
[2021-05-26 13:31] LABS: BASO % 0.7 % (0.0-1.0); EOS # 0.1 10^3/uL (0.0-0.5); EOS % 2.5 % (0.0-3.0); HEMATOCRIT 30.7 % (36.0-47.0); HEMOGLOBIN 9.1 g/dl (12.0-15.5); LYMPH # 1.3 10^3/uL (1.5-5.0); LYMPH % 29.7 % (24.0-44.0); MEAN CORPUSCULAR HEMOGLOBIN 24.9 pg (27.0-33.0); MEAN CORPUSCULAR HGB CONC 29.6 g/dl (32.0-36.5); MEAN CORPUSCULAR VOLUME 84.1 fl (80.0-96.0); MONO # 0.5 10^3/uL (0.0-0.8); MONO % 11.2 % (2.0-8.0); NEUTROPHILS # 2.5 10^3/uL (1.5-8.5); NEUTROPHILS % 55.5 % (36.0-66.0); PLATELET COUNT, AUTOMATED 328 10^3/uL (150-450); RED BLOOD COUNT 3.65 10^6/uL (4.00-5.40); WHITE BLOOD COUNT 4.5 10^3/uL (4.0-10.0)
[2021-05-26 14:59] LABS: ALBUMIN 3.5 GM/DL (3.2-5.2); ALT/SGPT 30 U/L (12-78); BILIRUBIN,TOTAL 0.5 MG/DL (0.2-1.0); BLOOD UREA NITROGEN 15 MG/DL (7-18); CALCIUM LEVEL 9.2 MG/DL (8.5-10.1); CARBON DIOXIDE LEVEL 27 MEQ/L (21-32); CHLORIDE LEVEL 108 MEQ/L (98-107); CHOLESTEROL LEVEL 161 MG/DL (<200); CHOLESTEROL RISK RATIO 2.981 (<5); CREATININE FOR GFR 0.78 MG/DL (0.55-1.30); GLOMERULAR FILTRATION RATE > 60.0 (>51); GLUCOSE, FASTING 92 MG/DL (70-100); HDL CHOLESTEROL 54 MG/DL (>40); LDL CHOLESTEROL 88 MG/DL (<100); NON-HDL-C 107 MG/DL; POTASSIUM SERUM 3.3 MEQ/L (3.5-5.1); SODIUM LEVEL 141 MEQ/L (136-145); TOTAL PROTEIN 6.9 GM/DL (6.4-8.2); TRIGLYCERIDES LEVEL 95 MG/DL (<150)
== END ==
LOC: M WUC 10:19
PROVIDERS: ATTEND Internal Medicine
DX: E78.00 Pure hypercholesterolemia, unspecified (principal); D50.9 Iron deficiency anemia, unspecified; I10 Essential (primary) hypertension

== ENCOUNTER → 2021-05-26 | Outpatient (CLI) | payer BC ==
[2021-05-26 13:31] LABS: BASO % 0.8 % (0.0-1.0); EOS # 0.1 10^3/uL (0.0-0.5); EOS % 2.7 % (0.0-3.0); HEMOGLOBIN 9.3 g/dl (12.0-15.5); LYMPH # 1.5 10^3/uL (1.5-5.0); LYMPH % 31.9 % (24.0-44.0); MEAN CORPUSCULAR HEMOGLOBIN 25.4 pg (27.0-33.0); MEAN CORPUSCULAR VOLUME 84.7 fl (80.0-96.0); MONO # 0.5 10^3/uL (0.0-0.8); MONO % 10.1 % (2.0-8.0); NEUTROPHILS # 2.6 10^3/uL (1.5-8.5); NEUTROPHILS % 53.9 % (36.0-66.0); PLATELET COUNT, AUTOMATED 336 10^3/uL (150-450); RED BLOOD COUNT 3.66 10^6/uL (4.00-5.40); WHITE BLOOD COUNT 4.7 10^3/uL (4.0-10.0)
[2021-05-26 13:58] LABS: ALT/SGPT 27 U/L (12-78); BLOOD UREA NITROGEN 15 MG/DL (7-18); C REACTIVE PROTEIN QUANTITATIV 0.69 MG/DL (0.00-0.30); CREATININE FOR GFR 0.78 MG/DL (0.55-1.30); GLOMERULAR FILTRATION RATE > 60.0 (>51)
[2021-05-26 14:26] LABS: ERYTHROCYTE SEDIMENTATION RATE 56 mm/hr (0-30)
== END ==
LOC: M WUC 10:22
PROVIDERS: ATTEND Nurse Practitioner
DX: M06.09 Rheumatoid arthritis without rheumatoid factor, multiple sites (principal); Z79.899 Other long term (current) drug therapy

== ENCOUNTER → 2021-05-29 | Outpatient (REF) | payer BC | LOC: M LAB REF 15:43 | PROVIDERS: ATTEND Physician Assistant | DX: R30.0 Dysuria (principal) ==

== ENCOUNTER 2021-07-06 15:54 | Outpatient (CLI) | payer BC ==
[~2021-07-06] VITALS: Ht 162.6 cm; Wt 111.4 kg
[~2021-07-06 15:54] MED LIST changes: +ALBUTEROL SULFATE 2.5 MG/0.5 ML INH NEB SOLN INH PRN; +EPINEPHrine INJ 1 MG/ML 1ML AMP IM PRN; +FERRIC CARBOXYMALTOSE INJ 750 MG, VIAL MATE ADAPTER 1 EACH in NS 250 ML IV ONE; +NS 1,000 ML IV SCH; +diphenhydrAMINE 50MG/ML VIAL (J1200) IV PRN; +methylPREDNISolone 125MG 2ML VIAL IV PRN
[2021-07-06 16:00] VITALS: BP 118/75
[2021-07-06 18:20] VITALS: BP 117/72
== END 2021-07-06 18:20 | disposition home or self-care (01) ==
LOC: M INFU 15:54
PROVIDERS: ATTEND Internal Medicine
DX: D64.9 Anemia, unspecified (principal); Z88.6 Allergy status to analgesic agent
CPT/HCPCS: 96365; 96366; J1439

== ENCOUNTER 2021-07-14 15:55 | Outpatient (CLI) | payer BC ==
[~2021-07-14] VITALS: Ht 162.6 cm; Wt 111.4 kg
[2021-07-14 16:23] VITALS: BP 168/74
[2021-07-14 17:43] VITALS: BP 150/70
== END 2021-07-14 17:35 | disposition home or self-care (01) ==
LOC: M INFU 15:55
PROVIDERS: ATTEND Internal Medicine
DX: D64.9 Anemia, unspecified (principal); Z88.6 Allergy status to analgesic agent
CPT/HCPCS: 96365; J1439

== ENCOUNTER → 2021-08-05 | Outpatient (REF) | payer BC ==
[~2021-08-05] MED LIST changes: -ALBUTEROL SULFATE 2.5 MG/0.5 ML INH NEB SOLN INH PRN; +AZUL500T PO; +AZUL500T3; +DIOV320T3 PO; -EPINEPHrine INJ 1 MG/ML 1ML AMP IM PRN; +ERGO500029 PO; +ETAN50PE; +FERR325T3 PO; -FERRIC CARBOXYMALTOSE INJ 750 MG, VIAL MATE ADAPTER 1 EACH in NS 250 ML IV ONE; +FOLI1TAB11 PO; +METH2.5T48; +NEXI40CA PO; +NIFE15CA PO; -NS 1,000 ML IV SCH; +PRED1TABL PO; +VALS1TAB67 PO; -diphenhydrAMINE 50MG/ML VIAL (J1200) IV PRN; -methylPREDNISolone 125MG 2ML VIAL IV PRN
== END ==
LOC: M SFHCWAGY 10:07
PROVIDERS: ATTEND Nurse Practitioner Women's Health
DX: Z12.4 Encounter for screening for malignant neoplasm of cervix (principal); Z01.419 Encounter for gynecological examination (general) (routine) without abnormal findings

== ENCOUNTER → 2021-08-17 | Outpatient (CLI) | payer BC | LOC: M LABSMTC 09:42 | PROVIDERS: ATTEND Anesthesiology | DX: Z01.812 Encounter for preprocedural laboratory examination (principal); Z20.822 Contact with and (suspected) exposure to COVID-19 ==

== ENCOUNTER 2021-08-21 10:22 | Day surgery (SDC) | payer BC ==
[~2021-08-21] VITALS: Ht 162.6 cm; Wt 111.1 kg
[~2021-08-21 10:22] MED LIST changes: +NS 1,000 ML IV ONE
--- OUTSIDE RECORDS SUMMARY | 2021-08-21 10:26 | CCD | Continuity of Care Document ---
Author Author Mayra ARMSTRONG [place] Organization Unknown Address [address] [place] [address] Phone [phone] Care Team Providers Care [employer]ribusiness Internship Name Role Phone Andre Dickson MD AUT [phone] Problems Description No Information Available Social History Type Date Description Comments Sex Unknown ETOH Use Occasionally consumes alcohol Tobacco Use Start: Unknown Patient has never smoked Smoking Status Reviewed: 05/29/21 Patient has never smoked Allergies, Adverse Reactions, Alerts Description No Known Drug Allergies Medications Active Medications SIG Qnty Indications Ordering Provide r Date Nitrofurantoin Monohyd Macro 100mg Capsules take one tablet by mouth twice a day x 7 days 14caps R3 0.0 Bubba Carmona JR., M.D. 05/29/2021 Enbrel Soln Prefill Syringe 50mg Unknown Azulfidine 500mg Tablets X2 d aily Unknown Hydroxychloroquine Sulfate 200mg T ablets Unknown Methotrexate 2.5mg Tablets Unknown Folic Acid 1mg Tablets Unknown Nexium 40mg Capsules DR 1 by mouth every day Unknown Vitamin D (Ergocalciferol) [id number] Capsules 1 capsule weekly Unknown Prednisone 1mg Tablets 3 t abs po daily Unknown Diovan HCT 80-12.5mg Tablets Unknown Nasonex 50mcg/Act Suspension 2 sprays each nostril daily - last dose at 6:30 am today Unkno wn Niferex Unknown Immunizations Description No Information Available Vital Signs Date Vital Result Comment 05/29/2021 1:38pm BP Systolic 117 mmHg BP Diastolic 77 mmHg Heart Rate 67 /min Respiratory Rate 16 /min O2 % BldC Oximetry 98 % Body Temperature 98.0 F Weight 245.00 lb Height 64 inches 5'4" BMI (Body Mass Index) 42.0 kg/m2 Pain Level 2 07/20/2018 7:13pm BP Systolic 119 mmHg BP Diastolic 81 mmHg Heart Rate 84 /min Respiratory Rate 19 /min O2 % BldC Oximetry 96 % Body Temperature 99.2 F Weight 250.00 lb Height 64 inches 5'4" BMI (Body Mass Index) 42.9 kg/m2 Pain Level 5 Results Test Acquired Date Facility Test Result H/L Range Note Laboratory test finding 05/29/2021 [place] [id number] [place] [id number] [phone] Urine Culture <pending> Procedures Date Code Description Status 05/29/2021 49039 Office/Outpatient Established Lo w MDM 20-29 Min Completed Medical Devices Description No Information Available Encounters Type Date Location Provider Dx Diagnosis Office Visit 05/29/2021 1:50p Main Office OBDULIO Lundberg R30 .0 Dysuria Assessments Date Code Description Provider 05/29/2021 R30.0 Dysuria OBDULIO Ness Plan of Treatment No Information Available Functional Status Description No Information Available Mental Status Description No Information Available Referrals Description No Information Available
--- OUTSIDE RECORDS SUMMARY | 2021-08-21 10:26 | CCD ---
Author Author [facility] Organization [facility] Address Unknown Phone Unavailable Care Team Providers Care Sail Maker Name Role Phone Mary Felix Unavailable PROBLEMS Type Condition ICD9-CM Code XXI64-IV Code Onset Dates Condition S tatus W/U Status Risk SNOMED Code Notes Problem Allergic rhinitis J30.9 Active confirmed 45 [id number] Stable on Nasonex when she uses it. I have suggested she use nasal steroids or [id number] antihistamine therapy seasonally. Problem Vitamin D deficiency E55.9 Active confirmed 80813854 She had a low vitamin D level of 17 in August 2008 but on Drisdol her vitamin D level was 91 as of May 2020. Problem Rheumatoid arthritis M06.9 Active confirmed 43445095 This is regularly monitored by her program production specialist in [place] and she is treated with methotrexate since 1993, Enbrel since 2000, Azulfidine since 1987, Plaquenil, and prednisone since age 17, currently at a dose of 3 mg daily. Medications are regularly monitored for toxicity. Her sedimentation rate and CRP are reasonably controlled as of May 2021. Problem Loose stools R19.5 Active confirmed [id number] 03 She complains of intermittent loose stools and I have recommended a fiber supplement such as Benefiber, a tablespoon once or twice a day. She had a colonoscopy which was normal in 2013 and I believe she should have another. A gallbladder ultrasound was negative in December 2020. Problem Essential hypertension I10 Active confirmed 89585166 She is on Diovan HCT with optimal blood pressure control. Problem Iron deficiency anemia, unspecified iron deficiency an emia type D50.9 Active confirmed 45309751 She has had low iron levels. In the past she has been prescribed iron but she was intolerant, even on a Tuesday/Tuesday/Tuesday schedule. I have in the past ordered a Cologuard test which she has not been able to complete. Her last colonoscopy was in 2013. Gallbladder ultrasound was negative as was a celiac sprue test, in 2020. She is tolerating Niferex every other day and she should intensify to 5 days a week. She a total of 500 mg of Venofer infused in 3 sessions in late February and early March 2021 and I will repeat iron infusions as of June 2021. She is referred for another colonoscopy. Problem Osteoporosis M81.0 Active confirmed [id number] 6 This is confirmed in 2001 and she had been on Boniva for 5 years faithfully. She had a low vitamin D level of 17 in August 2008 which was 91 on replacement, in May 2020. She stopped Boniva in late 2010. DEXA acceptable in 2013 and stable as of 2017. Problem Gastroesophageal reflux K21.9 Active confirmed [id number] She is on PPI therapy with controlled heartburn. She never had endoscopy. Problem Venous insufficiency I87.2 Active confirmed 54328058 She uses support stockings when possible, elevates her legs when possible. She intermittently has a bit of edema. She had a DVT ultrasound of her left leg in September 2018 and only a superficial phlebitis were identified. Problem Sleep apnea G47.30 Active confirmed 47027412 Confirmed in 2013. On CPAP 10cm water. Problem Hypercholesterolemia E78.00 Active confirmed 67159357 She has a history of cholesterol elevations but her lipids were optimal as of May 2021. ALLERGIES Allergen (clinical drug ingredient) Drug/Non Drug Allergy do cumented on EMR Reaction Allergy Type Onset Date Status morphine Morphine Sulfate([facility] Code:[address]-47) Nausea/Vomiti ng Drug Allergy Active GEOVANY Inhibitors Unknown Non Drug Allergy Acti ve ENCOUNTERS from 1960 to 2021-08-05 Encounter Location Date Provider Diagnosis [facility] [address] [phone] [place] [address] Jul, Mary Felix Routine gynecologica l examination Z01.419 ; Breast cancer screening by mammogram Z12.31 and Screening for malignant neoplasm of cervix Z12.4 IMMUNIZATIONS Vaccine Route Administration Date Status COVID-19 dose #1 given elsewhere Unspecified Unknown Nov 19, 2020 Administered COVID-19 dose #1 given elsewhere Unspecified Unknown Oct 29, 2020 Administered Influenza Pharmacy Given Unknown Aug 18, 2020 Adminis tered Pneumococcal Adult 0.5mL Pneumovax Unknown May 30 006 Administered TDAP 0.5mL (Boostrix) Unknown April 17, 2009 Administer ed Influenza 6mo & up Fluzone Unknown Aug 24, 2013 Admin istered Influenza 6mo & up Fluzone Unknown Aug 14, 2012 Admin istered Influenza 6mo & up Fluzone Unknown Aug 25, 2011 Admin istered Influenza 6mo & up Fluzone Unknown Aug 10, 2010 Admin istered SOCIAL HISTORY Tobacco Use: Social History Observation Description Date Details (start date - stop date) Never Smoker Sex Assigned At : Social History Observation Description Sex Assigned At Unknown Education: Question Answer Notes Level of Education: Finished College BS pharm, + Audit Question Answer Notes Total Score: 2 Interpretation: Alcohol Education Domestic Violence: Question Answer Notes Status: Sexual Hx: Question Answer Notes Had sex in the last 12 months (vaginal, oral, or anal)? Yes Have you ever had an STD? No with Men only Drug and Alcohol Question Answer Notes Total Score: 0 Interpretation: No problems reported Alcohol Screening: Question Answer Notes Did you have a drink containing alcohol in the past year? Ye s Points 3 Interpretation Positive How often did you have six or more drinks on one occas ion in the past year? Less than monthly (1 point) How many drinks did you have on a typica l day when you were drinking in the past year? 1 or 2 (0 points) How often did you have a drink containing alcohol in t he past year? Two to four times a month (2 points) BMI Care Goal Follow-Up Question Answer Notes Above Normal BMI Follow-Up Giving encouragement to exercise Tobacco Use: Question Answer Notes Are you a: never smoker never smoker REASON FOR REFERRAL No Information VITAL SIGNS Weight 249 lbs Jul, Weight-kg 112.94 kg Jul, Height 64 in Jul, BMI 42.74 kg/m2 Jul, Blood pressure systolic 118 mm Hg Jul, Blood pressure diastolic 70 mm Hg Jul, MEDICATIONS Medication SIG (Take, Route, Frequency, Duration) Notes Start Da te End Date Status predniSONE 1 MG 3 tablets Orally Once a day Active NexIUM 40 MG 1 capsule Orally Once a day for 90 day(s) Active Diovan HCT 160-12.5 MG 1 tablet Orally Once a day for 90 days Active Drisdol 10870 UNIT 1 capsule Orally Once a week for 84 Active Enbrel 25 MG 50mg Subcutaneous Once a week Active Folic Acid 1 MG 1 tablet Orally Once a day Active Penlac 8 % 1 drop to affected area to a ffected toenails Once a day as needed for 30 day(s) Active Azulfidine 500 MG 2 tablet Orally once daily for 5 day(s) Active Plaquenil 200 MG 1 tablet with food or milk O rally every tuesday & tuesday Active Nasonex 50 MCG/ACT 2 sprays in each nostril Matheus ally once daily as needed for 90 days Active Methotrexate (Anti-Rheumatic) 2.5 MG 8 tablets Orally Once a week Active Niferex - one tablet Orally Daily for 90 days Dec, Active Blood Pressure Monitor - as directed. needs large ad ult cuff Diagnosis: I10 Monitor BP three times a week for 99 months Dec, Active Sudafed 30 MG 1 tablet Orally every 6 hrs as needed fo r congestion for 30 days Apr, Active Keflex 500 mg 4 capsule Orally One hour before invasiv e procedures for 30 days Active PROCEDURES No Information RESULTS No Results REASON FOR VISIT annual MEDICAL (GENERAL) HISTORY Type Description Date Medical History Essential hypertension Medical History Rheumatoid arthritis Medical History Osteoporosis Medical History Hypercholesterolemia Medical History Gastroesophageal reflux Medical History Venous insufficiency Medical History Allergic rhinitis Medical History Vitamin D deficiency Medical History Sleep apnea Medical History Tyrer cuzick score 21.59% MRI eligable Medical History Anemia Medical History Lobular Intraepithealial Neoplasia Surgical History Open Reduction Internal Fixation of left knee for fracture 09/22/1981 Surgical History Hemorrhoid surgery 09/22/1995 Surgical History Knee replacement ( right ) 09/22/2000 Surgical History Right breast biopsy follow by a lumpecto my 09/22/2008 Surgical History Knee replacement ( left ) 07/23/2009 Surgical History Colonoscopy Sep 2014 Surgical History Sleep study Sep 2014 Hospitalization History Child 1990 & 1993 Goals Section No Information Health Concerns No Information MEDICAL EQUIPMENT No Information MENTAL STATUS No Information FUNCTIONAL STATUS No Information ASSESSMENTS Encounter Date Diagnosis Assessment Notes Treatment Notes Treatm ent Clinical Notes Jul, Routine gynecological examination (ICD-10 - Z01. 419) 29 Sep, 2021 Breast cancer screening by mammogram (ICD-10 - Z 12.31) has at [facility] Jul, Screening for malignant neoplasm of cervix (ICD- 10 - Z12.4) PLAN OF TREATMENT Treatment Notes Assessment Notes Clinical Notes Breast cancer screening by mammogram has at [facility] Treatment Notes Test Name Order Date PAP REQUEST FOR SERVICE 2021-08-05 Next Appt Details 1 Year Reason:annual Provider Name:Andre Dickson, 2021-12-15 03 :30:00 PM, [address], , [place], [address], Provider Name:Mary Felix, 2022-08-09 04:00:00 PM, [address], , [place], [address], Follow Up:1 Yearannual Insurance Providers Payer Name Payer Address Payer Phone Insured Name Patient Relati onship to Insured Coverage Start Date Coverage End Date [facility] [id number] [facility] [id number] [place] JESSICA
--- OUTSIDE RECORDS SUMMARY | 2021-08-21 10:26 | CCD ---
Continuity of Care Document (CCD) Created on: 05/29/2021 Mayra Barajas External Reference #: [id number] : [id number] Sex: Female Author Author Mayra ARMSTRONG [place] Organization Unknown Address [address] [place] [address] Phone [phone] Care Team Providers Care Hydroelectric Powerplant Supervisor Name Role Phone Andre Dickson MD AUT [phone] Problems Description No Information Available Social History [...] mouth every day Unknown Vitamin D (Ergocalciferol) 39086Riju Capsules 1 capsule weekly Unknown Prednisone 1mg [...] H/L Range Note Laboratory test finding 05/29/2021 [place] [id number] [place] [id number] [phone] Urine Culture <pending> Procedures Date Code Description Status 05/29/2021 96711 Office/Outpatient Established Lo w MDM 20-29 Min [...]
--- OUTSIDE RECORDS SUMMARY | 2021-08-21 10:26 | CCD ---
Author Author [facility] Organization [facility] [employer] [facility] Address Unknown Phone Unavailable Care Team Providers Care [address] [place] Name Role Phone Andre Dickson Unavailable PROBLEMS Type Condition ICD9-CM Code [id number] Code Onset Dates Condition S tatus W/U Status Risk SNOMED Code Notes Problem Allergic rhinitis J30.9 Active confirmed 06 991911 Stable on Nasonex when she uses it. I have suggested she use nasal steroids or emym-pfq-kfhdgdw antihistamine therapy seasonally. Problem Vitamin D deficiency E55.9 Active confirmed [id number] She had a low vitamin D level of 17 in August 2008 but on Drisdol her vitamin D level was 91 as of May 2020. Problem Rheumatoid arthritis M06.9 Active confirmed [id number] This is regularly monitored by her supervisor claims in [place] and she is treated with methotrexate since 1993, Enbrel since 2000, Azulfidine since 1987, Plaquenil, and prednisone since age 17, currently at a dose of 3 mg daily. Medications are regularly monitored for toxicity. Her sedimentation rate and CRP are reasonably controlled as of May 2021. Problem Loose stools R19.5 Active confirmed 4443034 03 She complains of intermittent loose stools and I have recommended a fiber supplement such as Benefiber, a tablespoon once or twice a day. She had a colonoscopy which was normal in 2013 and I believe she should have another. A gallbladder ultrasound was negative in December 2020. Problem Essential hypertension I10 Active confirmed 65463268 She is on Diovan HCT with optimal blood pressure control. Problem Iron deficiency anemia, unspecified iron deficiency an emia type D50.9 Active confirmed 04313831 She has had low iron levels. In [...] another colonoscopy. Problem Osteoporosis M81.0 Active confirmed 5321816 6 This is confirmed in 2001 and she had been on Boniva for 5 years faithfully. She had a low vitamin D level of 17 in August 2008 which was 91 on replacement, in May 2020. She stopped Boniva in late 2010. DEXA acceptable in 2013 and stable as of 2017. Problem Gastroesophageal reflux K21.9 Active confirmed [id number] She is on PPI therapy with controlled heartburn. She never had endoscopy. Problem Venous insufficiency I87.2 Active confirmed 42828193 She uses support stockings when possible, elevates her legs when possible. She intermittently has a bit of edema. She had a DVT ultrasound of her left leg in September 2018 and only a superficial phlebitis were identified. Problem Sleep apnea G47.30 Active confirmed 44260085 Confirmed in 2013. On CPAP 10cm water. Problem Hypercholesterolemia E78.00 Active confirmed 82061778 She has a history of cholesterol elevations but her lipids were optimal as of May 2021. ALLERGIES Allergen (clinical drug ingredient) Drug/Non Drug Allergy do cumented on EMR Reaction Allergy Type Onset Date Status morphine Morphine Sulfate([facility] Code:[address]-92) Nausea/Vomiti ng Drug Allergy Active GEOVANY Inhibitors Unknown Non Drug Allergy Acti ve ENCOUNTERS from 1962 to 2021-06-30 Encounter Location Date Provider Diagnosis [address] [phone] [place] [address] Jun, Andre Dickson Essential hypertension I10 ; Rheumatoid arthritis M06.9 ; Osteoporosis M81.0 ; Hypercholesterolemia E78.00 ; Gastroesophageal reflux K21.9 ; Venous insufficiency I87.2 ; Allergic rhinitis J30.9 ; Vitamin D deficiency E55.9 ; Sleep apnea G47.30 ; Loose stools R19.5 ; Iron deficiency anemia, unspecified iron deficiency anemia type D50.9 and Encounter for HCV screening test for low risk patient Z11.59 IMMUNIZATIONS Vaccine Route Administration Date Status COVID-19 dose #1 given elsewhere Unspecified Unknown Nov 19, 2020 Administered COVID-19 dose #1 given elsewhere Unspecified Unknown Oct 29, 2020 Administered Influenza Pharmacy Given Unknown Aug 18, 2020 Adminis tered Pneumococcal Adult 0.5mL Pneumovax 23 Unknown May 30 006 Administered TDAP 0.5mL [...] never smoker never smoker REASON FOR REFERRAL from 1962 to 2021-06-30 Reason Last colonoscopy was 2013. She has refractory iron deficiency anemia. Diagnosis 1 Iron deficiency anemia, unsp ecified iron deficiency anemia type (D50.9) Diagnosis 2 Gastroesophageal reflux (K21 .9) Diagnosis 3 Loose stools (R19.5) Referral Organization [facility] Elly Referring Provider First Name Andre Referring Provider Last Name Randolph Referring Provider Specialty Family Medicine Referred Provider Maxwell Dougherty Referred Provider Specialty Gastroenterology Referral Priority Routine Referral Appointment Date 2021-06-25 VITAL SIGNS Weight 247.4 lbs Jun, Height 64 in Jun, BMI 42.46 kg/m2 Jun, Heart Rate 101 /min Jun, Respiratory Rate 18 /min Jun, Temperature 98.0 degrees Fahrenheit Jun, Oximetry 98% Jun, Blood pressure systolic 114 mm Hg Jun, Blood pressure diastolic 78 mm Hg Jun, MEDICATIONS Medication SIG (Take, Route, Frequency, Duration) Notes Start Da te End Date Status Nasonex 50 MCG/ACT 2 sprays in each nostril Matheus ally once daily as needed for 90 days Active Plaquenil 200 MG 1 tablet with food or milk O rally every tuesday & tuesday Active Blood Pressure Monitor - as directed. needs large ad ult cuff Diagnosis: I10 Monitor BP three times a week for 99 months Dec, Active Diovan HCT 160-12.5 MG 1 tablet Orally Once a day for 90 days Active Niferex - one tablet Orally Daily for 90 days Dec, Active Drisdol 55019 UNIT 1 capsule Orally Once a week for 84 Active Folic Acid 1 MG 1 tablet Orally Once a day Active predniSONE 1 MG 3 tablets Orally Once a day Active Sudafed 30 MG 1 tablet Orally every 6 hrs as needed fo r congestion for 30 days Apr, Active Azulfidine 500 MG 2 tablet Orally once daily for 5 day(s) Active Keflex 500 mg 4 capsule Orally One hour before invasiv e procedures for 30 days Active Methotrexate (Anti-Rheumatic) 2.5 MG 8 tablets Orally Once a week Active NexIUM 40 MG 1 capsule Orally Once a day for 90 day(s) Active Penlac 8 % 1 drop to affected area to a ffected toenails Once a day as needed for 30 day(s) Active Enbrel 25 MG 50mg Subcutaneous Once a week Active PROCEDURES No Information RESULTS No Results REASON FOR VISIT 6 month follow up with labs to review MEDICAL (GENERAL) HISTORY Type Description Date Medical History Essential hypertension Medical History Rheumatoid arthritis Medical History Osteoporosis Medical History Hypercholesterolemia Medical History Gastroesophageal reflux Medical History Venous insufficiency Medical History Allergic rhinitis Medical History Vitamin D deficiency Medical History Sleep apnea Medical History Tyrer cuzick score 21.59% MRI eligable Surgical History Open Reduction Internal Fixation of [...] Notes Treatment Notes Treatm ent Clinical Notes Jun, Essential hypertension (ICD-10 - I10) Baldo moyer is on Diovan HCT with optimal blood pressure control. Jun, Rheumatoid arthritis (ICD-10 - M06.9) Nadia braden is regularly monitored by her supervisor claims in [place] and she is treated with methotrexate since 1993, Enbrel since 2000, Azulfidine since 1987, Plaquenil, and prednisone since age 17, currently at a dose of 3 mg daily. Medications are regularly monitored for toxicity. Her sedimentation rate and CRP are reasonably controlled as of May 2021. Jun, Osteoporosis (ICD-10 - M81.0) This is co nfirmed in 2001 and she had been on Boniva for 5 years faithfully. She had a low vitamin D level of 17 in August 2008 which was 91 on replacement, in May 2020. She stopped Boniva in late 2010. DEXA acceptable in 2013 and stable as of 2017. Jun, Hypercholesterolemia (ICD-10 - E78.00) S he has a history of cholesterol elevations but her lipids were optimal as of May 2021. Jun, Gastroesophageal reflux (ICD-10 - K21.9) She is on PPI therapy with controlled heartburn. She never had endoscopy. Jun, Venous insufficiency (ICD-10 - I87.2) Baldo moyer uses support stockings when possible, elevates her legs when possible. She intermittently has a bit of edema. She had a DVT ultrasound of her left leg in September 2018 and only a superficial phlebitis were identified. Jun, Allergic rhinitis (ICD-10 - J30.9) Alonzo moyer on Nasonex when she uses it. I have suggested she use nasal steroids or fnjf-sbi-vdejciv antihistamine therapy seasonally. Jun, Vitamin D deficiency (ICD-10 - E55.9) Baldo moyer had a low vitamin D level of 17 in August 2008 but on Drisdol her vitamin D level was 91 as of May 2020. Jun, Sleep apnea (ICD-10 - G47.30) Confirmed in 2013. On CPAP 10cm water. Jun, Loose stools (ICD-10 - R19.5) She compla ins of intermittent loose stools and I have recommended a fiber supplement such as Benefiber, a tablespoon once or twice a day. She had a colonoscopy which was normal in 2013 and I believe she should have another. A gallbladder ultrasound was negative in December 2020. Jun, Iron deficiency anemia, unsp ecified iron deficiency anemia type (ICD-10 - D50.9) She has had low iron levels. In the pas t she has been prescribed iron but she [...] 2021. She is referred for another colonoscopy. Jun, Encounter for HCV screening test for low risk patient (ICD-10 - Z11.59) PLAN OF TREATMENT Medication Medication Name Sig Start Date Stop Date Drisdol 06575 UNIT 1 capsule Orally Once a week for 84 NexIUM 40 MG 1 capsule Orally Once a day for 90 day(s) Niferex - one tablet Orally Daily for 90 days Dec, Diovan HCT 160-12.5 MG 1 tablet Orally Once a day for 90 days Nasonex 50 MCG/ACT 2 sprays in each nostril Matheus ally once daily as needed for 90 days Sudafed 30 MG 1 tablet Orally every 6 hrs as needed fo r congestion for 30 days Apr, Future Test Test Name Order Date HEPATITIS C ANTIBODY INDEX 20211210 Comprehensive Metabolic Profile (CMP) 20211210 MAGNESIUM LEVEL 20211210 CBC with Differential 20211210 Referrals Referral Date Details 2021-06-25 2021-06-25, Last colonoscopy was 2013. She has refractory iron deficiency anemia., Maxwell Dougherty Next Appt Details 6 Months Reason: Provider Name:Mary Isidro, 2021-08-05 04:00:00 PM, [address] [place] [address], , [place], [address], Provider Name:Andre Dickson, 2021-12-15 03 :30:00 PM, [address] [facility], , [place], [address], Insurance Providers Payer Name Payer Address Payer Phone Insured Name Patient Relati onship to Insured Coverage Start Date Coverage End Date BC[facility] [id number] [facility] [id number] [place]OVANI JESSICA
--- OUTSIDE RECORDS SUMMARY | 2021-08-21 10:26 | CCD | Continuity of Care Document ---
Author Author Mayra ARMSTRONG ND Organization Unknown Address [address] [place] [address] Phone [phone] Care Team Providers Care Equity Holder Name Role Phone Ander Dickson MD AUT [phone] Problems Description No Information Available Social History [...] mouth every day Unknown Vitamin D (Ergocalciferol) [id number] Capsules 1 capsule weekly Unknown Prednisone 1mg [...] H/L Range Note Laboratory test finding 05/29/2021 [facility] [address] [place] [address] [phone] Urine Culture FULL REPORT IN L <SEE NOTE> Normal 1, 2 1 FULL REPORT IN LAB NOTES (eC W and [facility]). ORGANISM 1: ESCHERICHIA COLI COLONY COUNT 50,000 ORGANISM 1: ESCHERICHIA COLI ESCHERICHIA COLI: REACTION TRIMETHOPRIM/SULFAMETHOXAZOLE IV 160mg TMP & 800mg SMXq6h >=320 R TRIMETHOPRIM/SULFAMETHOXAZOLE PO Bactrim DS Bid >=320 R AMPICILLIN IV 500mg q6h >=32 R AMPICILLIN PO 500mg q6h fasting >=32 R GENTAMICIN IV 80mg q8h >=16 R NITROFURANTOIN PO 100mg BID <=16 S CEFAZOLIN IV 1gm q8h 32 R LEVOFLOXACIN IV 500mg qd >=8 R LEVOFLOXACIN PO 250mg qd >=8 R LEVOFLOXACIN PO 500mg qd >=8 R TOBRAMYCIN IV 80mg q8h 8 I CEFTRIAXONE IV 1gm q24h <=1 S CEFTAZIDIME IV 1gm q8h <=1 S AMPICILLIN/SULBACTAM IV 1.5g q6h >=32 R PIPERACILLIN/TAZOBACTAM IV 2.25 gm q6h >=128 R AZTREONAM IV 1gm q8h <=1 S ERTAPENEM IV 1gm qd <=0.5 S MEROPENEM IV 1 gm q8h <=0.25 S MEROPENEM IV 500 mg q8h <=0.25 S TIGECYCLINE IV 50mg q12h <=0.5 S CEFEPIME IV 1 gm q12h <=1 S CEFEPIME IV 2 gm q12h <=1 S EXTD BRD SPCTRM BETA LACTAMASE IV NEGATIVE FOR ESBL 2 05/31/21 (TueMay 31) 11:12 AM MICHELE PACHECO on macrobid = s Procedures Date Code Description Status 05/29/2021 [id number] Office/Outpatient Established Lo w MDM 20-29 Min [...]
--- OUTSIDE RECORDS SUMMARY | 2021-08-21 10:26 | CCD | Continuity of Care Document ---
Author Author Mayra DOUGHERTY M.D Organization Unknown Address [address] [place] [address] Phone [phone] Care Team Providers Care Casino Floor Person Name Role Phone Andre Dickson M.D. AUTM [phone] Problems Active Problems Provider Date Anemia Maxwell Dougherty M.D. Onset: 06/25/20 21 Hemorrhage of rectum and anus Janet Schaeffer,A.N.PLanny Onset : 08/06/2014 Essential hypertension Onset: 08/16/2012 Social History Type Date Description Comments Sex Unknown ETOH Use Occasionally Tobacco Use Start: Unknown Patient has never smoked Allergies, Adverse Reactions, Alerts Active Allergies Criticality Reaction | Severity Comments Date Aspirin Unable to assess criticality 08/06/2014 Morphine Unable to assess criticality Nausea/Vomit ing 08/06/2014 Inactive Allergies NKDA Unable to assess criticality 08/06/2014 Medications Active Medications SIG Qnty Indications Ordering Provide r Date Sutab [id number] Tablets as directed 1box Maxwell Dougherty M.D. 06/25/2021 Diovan HCT 80-12.5mg Tablets Unknown Prednisone 3mg Tablets Unknown Enbrel 50mg/ml Solution Unknown Methotrexate 2.5mg Tablets Unknown Vitamin D High Potency 55381 Capsules Unknown Folic Acid 1mg Tablets Unknown Azulfidine 500mg Tablets Unknown Hydroxychloroquine Sulfate 200mg T ablets Take 1 Tablet By Mouth On Tuesday, Tuesday And Tuesday Unknown Esomeprazole Magnesium 40mg Capsul es DR Take 1 Capsule By Mouth Every Day Unknown Niferex Tablets Unknown Immunizations Description No Information Available Vital Signs Date Vital Result Comment 06/25/2021 4:15pm Height 64 inches 5'4" Weight 244.00 lb BP Systolic 95 mmHg BP Diastolic 71 mmHg Heart Rate 51 /min BMI (Body Mass Index) 41.9 kg/m2 Weight 110.678 kg Body Temperature 96.4 F 08/06/2014 2:56pm Height 65 inches 5'5" Weight 226.00 lb BP Systolic 128 mmHg BP Diastolic 76 mmHg Heart Rate 66 /min BMI (Body Mass Index) 37.6 kg/m2 Weight 102.514 kg Results Description No Information Available Procedures Date Code Description Status 06/25/2021 39298 Office/Outpatient New Low MDM 30 -44 Minutes Completed Medical Devices Description No Information Available Encounters Type Date Location Provider Dx Diagnosis Office Visit 06/25/2021 3:30p Main Office Maxwell Dougherty M.D. D 64.9 Anemia, unspecified Assessments Date Code Description Provider 06/25/2021 D64.9 Anemia Maxwell tolbert M.D. Plan of Treatment 06/25/2021 - Maxwell Dougherty M.D.* D64.9 Anemia* Comments:* 61 yo wf who presents for a colonoscopy/egd due to a h/o anemia. Last scope was in 2013. No c/o abdominal pain, weight loss, change in bowel habits, or rectal bleeding. No family h/o colon cancer. No h/o chest pain, or sob. Plan:1. Colonoscopy + egd.2. Informed consent. Functional Status Description No Information Available Mental Status Description No Information Available Referrals Description No Information Available
--- OUTSIDE RECORDS SUMMARY | 2021-08-21 10:27 | CCD ---
Author Author [facility] Organization [facility] Address Unknown Phone Unavailable Care Team Providers Care Sleeve Bottom Feller Name Role Phone Spencer Dougherty MD Unavailable Unavailable Spencer Dougherty MD Unavailable Unavailable Spencer Dougherty MD Unavailable Unavailable Spencer Dougherty MD Unavailable Unavailable Spencer Dougherty MD Unavailable Unavailable Spencer Dougherty MD Unavailable Unavailable Spencer Dougherty MD Unavailable Unavailable Spencer Dougherty MD Unavailable Unavailable Spencer Dougherty MD Unavailable Unavailable Spencer Dougherty MD Unavailable Unavailable Spencer Dougherty MD Unavailable Unavailable Spencer Dougherty MD Unavailable Unavailable Spencer Dougherty MD Unavailable Unavailable Spencer Dougherty MD Unavailable Unavailable Spencer Dougherty MD Unavailable Unavailable Spencer Dougherty MD Unavailable Unavailable Spencer Dougherty MD Unavailable Unavailable Spencer Dougherty MD Unavailable Unavailable Spencer Dougherty MD Unavailable Unavailable Spencer Dougherty MD Unavailable Unavailable Spencer Dougherty MD Unavailable Unavailable Spencer Dougherty MD Unavailable Unavailable Spencer Dougherty MD Unavailable Unavailable Spencer Dougherty MD Unavailable Unavailable Spencer Dougherty MD Unavailable Unavailable Spencer Dougherty MD Unavailable Unavailable Spencer Dougherty MD Unavailable Unavailable Spencer Dougherty MD Unavailable Unavailable Spencer Dougherty MD Unavailable Unavailable Spencer Dougherty MD Unavailable Unavailable Spencer Dougherty MD Unavailable Unavailable Spencer Dougherty MD Unavailable Unavailable Spencer Dougherty MD Unavailable Unavailable Farhat, Spencer Arreola MD Unavailable Unavailable Farhat, S Maxwell LORENZ Unavailable Unavailable Farhat, S Maxwell LORENZ Unavailable Unavailable Farhat, S Maxwell LORENZ Unavailable Unavailable Farhat, S Maxwell LORENZ Unavailable Unavailable Farhat, S Maxwell LORENZ Unavailable Unavailable Farhat, S Maxwell LORENZ Unavailable Unavailable Farhat, S Maxwell LORENZ Unavailable Unavailable Farhat, S Maxwell LORENZ Unavailable Unavailable Farhat, S Maxwell LORENZ Unavailable Unavailable Farhat, S Maxwell LORENZ Unavailable Unavailable Farhat, S Maxwell LORENZ Unavailable Unavailable Farhat, S Maxwell MD Unavailable Unavailable Farhat, S Maxwell LORENZ Unavailable Unavailable Farhat, S Maxwell LORENZ Unavailable Unavailable Farhat, S Maxwell LORENZ Unavailable Unavailable Farhat, S Maxwell MD Unavailable Unavailable LETTIERE, A NABOR PA Unavailable Unavailable LETTIERE, A NABOR PA Unavailable Unavailable LETTIERE, A NABOR PA Unavailable Unavailable LETTIERE, A NABOR PA Unavailable Unavailable LETTIERE, A NABOR PA Unavailable Unavailable LETTIERE, A NABOR PA Unavailable Unavailable LETTIERE, A NABOR PA Unavailable Unavailable LETTIERE, A NABOR PA Unavailable Unavailable LETTIERE, A NABOR PA Unavailable Unavailable LETTIERE, A NABOR PA Unavailable Unavailable LETTIERE, A NABOR PA Unavailable Unavailable LETTIERE, A NABOR PA Unavailable Unavailable LETTIERE, A NABOR PA Unavailable Unavailable LETTIERE, A NABOR PA Unavailable Unavailable LETTIERE, A NABOR PA Unavailable Unavailable LETTIERE, A NABOR PA Unavailable Unavailable LETTIERE, A NABOR PA Unavailable Unavailable LETTIERE, A NABOR PA Unavailable Unavailable LETTIERE, A NABOR PA Unavailable Unavailable LETTIERE, A NABOR PA Unavailable Unavailable LETTIERE, A NABOR PA Unavailable Unavailable LETTIERE, A NABOR PA Unavailable Unavailable LETTIERE, A NABOR PA Unavailable Unavailable LETTIERE, A NABOR PA Unavailable Unavailable LETTIERE, A NABOR PA Unavailable Unavailable LETTIERE, A NABOR PA Unavailable Unavailable LETTIERE, A NABOR PA Unavailable Unavailable LETTIERE, A NABOR PA Unavailable Unavailable LETTIERE, A NABOR PA Unavailable Unavailable LETTIERE, A NABOR PA Unavailable Unavailable LETTIERE, A NABOR PA Unavailable Unavailable Fernando Ramos SETTLEMENT CLERK Unavailable Unavailable Fernando Ramos SETTLEMENT CLERK Unavailable Unavailable Fernando Ramos SETTLEMENT CLERK Unavailable Unavailable Fernando Ramos SETTLEMENT CLERK Unavailable Unavailable Fernando Ramos SETTLEMENT CLERK Unavailable Unavailable Fernando Ramos SETTLEMENT CLERK Unavailable Unavailable Fernando Ramos SETTLEMENT CLERK Unavailable Unavailable Richard, M Dahlia SETTLEMENT CLERK Unavailable Unavailable Richard, M Dahlia SETTLEMENT CLERK Unavailable Unavailable Richard, M Dahlia SETTLEMENT CLERK Unavailable Unavailable Richard, M Dahlia SETTLEMENT CLERK Unavailable Unavailable Richard, M Dahlia SETTLEMENT CLERK Unavailable Unavailable Richard, M Dahlia SETTLEMENT CLERK Unavailable Unavailable Richard, M Dahlia SETTLEMENT CLERK Unavailable Unavailable Richard, M Dahlia SETTLEMENT CLERK Unavailable Unavailable Richard, M Dahlia SETTLEMENT CLERK Unavailable Unavailable Blaine, Yumiko Hernandez SETTLEMENT CLERK-C Unavailable Unavailabl e Blaine, Yumiko Hernandez SETTLEMENT CLERK-C Unavailable Unavailabl e Blaine, Yumiko Hernandez SETTLEMENT CLERK-C Unavailable Unavailabl e Blaine, Yumiko Hernandez SETTLEMENT CLERK-C Unavailable Unavailabl e Blaine, Yumiko Hernandez SETTLEMENT CLERK-C Unavailable Unavailabl e Blaine, Yumiko Hernandez SETTLEMENT CLERK-C Unavailable Unavailabl e Blaine, Yumiko Hernandez SETTLEMENT CLERK-C Unavailable Unavailabl e Blaine, Yumiko Hernandez SETTLEMENT CLERK-C Unavailable Unavailabl e Blaine, Yumiko Hernandez SETTLEMENT CLERK-C Unavailable Unavailabl e Blaine, Yumiko Hernandez SETTLEMENT CLERK-C Unavailable Unavailabl e Blaine, Yumiko Hernandez SETTLEMENT CLERK-C Unavailable Unavailabl e Blaine, Yumiko Hernandez SETTLEMENT CLERK-C Unavailable Unavailabl e Blaine, Yumiko Hernandez SETTLEMENT CLERK-C Unavailable Unavailabl e Blaine, Yumiko Hernandez SETTLEMENT CLERK-C Unavailable Unavailabl e Blaine, Yumiko Hernandez SETTLEMENT CLERK-C Unavailable Unavailabl e Blaine, Yumiko Hernandez SETTLEMENT CLERK-C Unavailable Unavailabl e Blaine, Yumiko Hernandez SETTLEMENT CLERK-C Unavailable Unavailabl e Blaine, Yumiko Hernandez SETTLEMENT CLERK-C Unavailable Unavailabl e Blaine, Yumiko Hernandez SETTLEMENT CLERK-C Unavailable Unavailabl e Blaine, Yumiko Weinernifer SETTLEMENT CLERK-C Unavailable Unavailabl e Blaine, Yumiko Esquedafer SETTLEMENT CLERK-C Unavailable Unavailabl e Blaine, Yumiko Esquedafer SETTLEMENT CLERK-C Unavailable Unavailabl e Blaine, Yumiko Hernandez SETTLEMENT CLERK-C Unavailable Unavailabl e Blaine, Yumiko Hernandez SETTLEMENT CLERK-C Unavailable Unavailabl e Blaine, Yumiko Hernandez SETTLEMENT CLERK-C Unavailable Unavailabl e Blaine, Yumiko Hernandez SETTLEMENT CLERK-C Unavailable Unavailabl e Blaine, Yumiko Hernandez SETTLEMENT CLERK-C Unavailable Unavailabl e Blaine, Yumiko Hernandez SETTLEMENT CLERK-C Unavailable Unavailabl e Blaine, Yumiko Hernandez SETTLEMENT CLERK-C Unavailable Unavailabl e Blaine, Yumiko Weinernifer SETTLEMENT CLERK-C Unavailable Unavailabl e Blaine, Yumikolatasha WeinerMary SETTLEMENT CLERK-C Unavailable Unavailabl e Blaine, Yumiko Weinernifer SETTLEMENT CLERK-C Unavailable Unavailabl e Blaine, Yumiko Weinernifer SETTLEMENT CLERK-C Unavailable Unavailabl e Blaine, Yumiko Weinernifer SETTLEMENT CLERK-C Unavailable Unavailabl e Blaine, Yumikolatasha WeinerMary SETTLEMENT CLERK-C Unavailable Unavailabl e Blaine, Yumikolatasha WeinerMary SETTLEMENT CLERK-C Unavailable Unavailabl e Blaine, Yumikolatasha WeinerMary SETTLEMENT CLERK-C Unavailable Unavailabl e Blaine, Yumiko Mary SETTLEMENT CLERK-C Unavailable Unavailabl e Blaine, Yumiko Mary SETTLEMENT CLERK-C Unavailable Unavailabl e Blaine, Yumiko Weinernifer SETTLEMENT CLERK-C Unavailable Unavailabl e Blaine, Yumiko Weinernifer SETTLEMENT CLERK-C Unavailable Unavailabl e Blaine, Yumiko Weinernifer SETTLEMENT CLERK-C Unavailable Unavailabl e Blaine, Yumiko Weinernifer SETTLEMENT CLERK-C Unavailable Unavailabl e Blaine, Yumiko Weinernifer SETTLEMENT CLERK-C Unavailable Unavailabl e Blaine, Yumiko Weinernifer SETTLEMENT CLERK-C Unavailable Unavailabl e Baline, Yumiko Weinernifer SETTLEMENT CLERK-C Unavailable Unavailabl e Blaine, Yumiko Weinernifer SETTLEMENT CLERK-C Unavailable Unavailabl e Blaine, Yumiko Weinernifer SETTLEMENT CLERK-C Unavailable Unavailabl e Blaine, Yumiko Weinernifer SETTLEMENT CLERK-C Unavailable Unavailabl e Garza Leno, Demetrice Zhang MD, FACS Unavailable Unavailable Garza Burr, Demetrice Zhang MD, FACS Unavailable Unavailable Garza Burr, Demetrice Zhang MD, FACS Unavailable Unavailable Garza Burr, Demetrice Zhang MD, FACS Unavailable Unavailable Garza Burr, Demetrice Zhang MD, FACS Unavailable Unavailable Garza Burr, Demetrice Zhang MD, FACS Unavailable Unavailable Garza Burr, Demetrice Zhang MD, FACS Unavailable Unavailable Garza Burr, Demetrice Zhang MD, FACS Unavailable Unavailable Garza Burr, Demetrice Zhang MD, FACS Unavailable Unavailable Garza Burr, Demetrice Zhang MD, FACS Unavailable Unavailable Garza Burr, Demetrice Zhang MD, FACS Unavailable Unavailable Garza Burr, Demetrice Zhang MD, FACS Unavailable Unavailable Garza Burr, Demetrice Zhang MD, FACS Unavailable Unavailable Garza Burr, Demetrice Zhang MD, FACS Unavailable Unavailable Garza Burr, Demetrice Zhang MD, FACS Unavailable Unavailable Garza Burr, Demetrice Zhang MD, FACS Unavailable Unavailable Garza Burr, Demetrice Zhang MD, FACS Unavailable Unavailable Garza Burr, Demetrice Zhang MD, FACS Unavailable Unavailable Garza Burr, Demetrice Zhang MD, FACS Unavailable Unavailable Garza Burr, Demetrice Zhang MD, FACS Unavailable Unavailable Garza Burr, Demetrice Zhang MD, FACS Unavailable Unavailable Garza Burr, Demetrice Zhang MD, FACS Unavailable Unavailable Garza Burr, Demetrice Zhang MD, FACS Unavailable Unavailable Garza Burr, Demetrice Zhang MD, FACS Unavailable Unavailable Garza Burr, Demetrice Zhang MD, FACS Unavailable Unavailable Garza Burr, Demetrice Zhang MD, FACS Unavailable Unavailable Garza Burr, Demetrice Zhang MD, FACS Unavailable Unavailable Garza Burr, Demetrice Zhang MD, FACS Unavailable Unavailable Garza Burr, Demetrice Zhang MD, FACS Unavailable Unavailable Garza Burr, Demetrice Zhang MD, FACS Unavailable Unavailable Garza Burr, Demetrice Zhang MD, FACS Unavailable Unavailable Garza Burr, Demetrice Zhang MD, FACS Unavailable Unavailable Garza Burr, Demetrice Zhang MD, FACS Unavailable Unavailable Garza Burr, Demetrice Zhang MD, FACS Unavailable Unavailable Garza Burr, Demetrice Zhang MD, FACS Unavailable Unavailable Garza Burr, Demetrice Zhang MD, FACS Unavailable Unavailable Garza Burr, Demetrice Zhang MD, FACS Unavailable Unavailable Garza Burr, Demetrice Zhang MD, FACS Unavailable Unavailable Garza Burr, Demetrice Zhang MD, FACS Unavailable Unavailable RADHA DAMICO MD Unavailable Unavailable RADHA DAMICO MD Unavailable Unavailable RADHA DAMICO MD Unavailable Unavailable RADHA DAMICO MD Unavailable Unavailable RADHA DAMICO MD Unavailable Unavailable RADHA DAMICO MD Unavailable Unavailable RADHA DAMICO MD Unavailable Unavailable RADHA DAMICO MD Unavailable Unavailable RADHA DAMICO MD Unavailable Unavailable RADHA DAMICO MD Unavailable Unavailable RADHA DAMICO MD Unavailable Unavailable RADHA DAMICO MD Unavailable Unavailable RADHA DAMICO MD Unavailable Unavailable RADHA DAMICO MD Unavailable Unavailable RADHA DAMICO MD Unavailable Unavailable RADHA DAMICO MD Unavailable Unavailable RADHA DAMICO MD Unavailable Unavailable RADHA DAMICO MD Unavailable Unavailable RADHA DAMICO MD Unavailable Unavailable RADHA DAMICO MD Unavailable Unavailable RADHA DAMICO MD Unavailable Unavailable RADHA DAMICO MD Unavailable Unavailable RADHA DAMICO MD Unavailable Unavailable RADHA DAMICO MD Unavailable Unavailable RADHA DAMICO MD Unavailable Unavailable RADHA DAMICO MD Unavailable Unavailable RADHA DAMICO MD Unavailable Unavailable RADHA DAMICO MD Unavailable Unavailable RADHA DAMICO MD Unavailable Unavailable KHAIRALLAH, RAMZI MD Unavailable Unavailable KHAIRALLAH, RAMZI MD Unavailable Unavailable KHAIRALLAH, RAMZI MD Unavailable Unavailable KHAIRALLAH, RAMZI MD Unavailable Unavailable KHAIRALLAH, RAMZI MD Unavailable Unavailable KHAIRALLAH, RAMZI MD Unavailable Unavailable KHAIRALLAH, RAMZI MD Unavailable Unavailable KHAIRALLAH, RAMZI MD Unavailable Unavailable KHAIRALLAH, RAMZI MD Unavailable Unavailable KHAIRALLAH, RAMZI MD Unavailable Unavailable KHAIRALLAH, RAMZI MD Unavailable Unavailable KHAIRALLAH, RAMZI MD Unavailable Unavailable KHAIRALLAH, RAMZI MD Unavailable Unavailable KHAIRALLAH, RAMZI MD Unavailable Unavailable KHAIRALLAH, RAMZI MD Unavailable Unavailable KHAIRALLAH, RAMZI MD Unavailable Unavailable KHAIRALLAH, RAMZI MD Unavailable Unavailable KHAIRALLAH, RAMZI MD Unavailable Unavailable KHAIRALLAH, RAMZI MD Unavailable Unavailable KHAIRALLAH, RAMZI MD Unavailable Unavailable KHAIRALLAH, RAMZI MD Unavailable Unavailable KHAIRALLAH, RAMZI MD Unavailable Unavailable KHAIRALLAH, RAMZI MD Unavailable Unavailable KHAIRALLAH, RAMZI MD Unavailable Unavailable KHAIRALLAH, RAMZI MD Unavailable Unavailable KHAIRALLAH, RAMZI MD Unavailable Unavailable KHAIRALLAH, RAMZI MD Unavailable Unavailable KHAIRALLAH, RAMZI MD Unavailable Unavailable KHAIRALLAH, RAMZI MD Unavailable Unavailable KHAIRALLAH, RAMZI MD Unavailable Unavailable KHAIRALLAH, RAMZI MD Unavailable Unavailable KHAIRALLAH, RAMZI MD Unavailable Unavailable KHAIRALLAH, RAMZI MD Unavailable Unavailable KHAIRALLAH, RAMZI MD Unavailable Unavailable KHAIRALLAH, RAMZI MD Unavailable Unavailable KHAIRALLAH, RAMZI MD Unavailable Unavailable KHAIRALLAH, RAMZI MD Unavailable Unavailable KHAIRALLAH, RAMZI MD Unavailable Unavailable KHAIRALLAH, RAMZI MD Unavailable Unavailable KHAIRALLAH, RAMZI MD Unavailable Unavailable KHAIRALLAH, RAMZI MD Unavailable Unavailable KHAIRALLAH, RAMZI MD Unavailable Unavailable KHAIRALLAH, RAMZI MD Unavailable Unavailable KHAIRALLAH, RAMZI MD Unavailable Unavailable KHAIRALLAH, RAMZI MD Unavailable Unavailable KHAIRALLAH, RAMZI MD Unavailable Unavailable KHAIRALLAH, RAMZI MD Unavailable Unavailable KHAIRALLAH, RAMZI MD Unavailable Unavailable KHAIRALLAH, RAMZI MD Unavailable Unavailable KHAIRALLAH, RAMZI MD Unavailable Unavailable KHAIRALLAH, RAMZI MD Unavailable Unavailable KHAIRALLAH, RAMZI MD Unavailable Unavailable KHAIRALLAH, RAMZI MD Unavailable Unavailable KHAIRALLAH, RAMZI MD Unavailable Unavailable KHAIRALLAH, RAMZI MD Unavailable Unavailable KHAIRALLAH, RAMZI MD Unavailable Unavailable KHAIRALLAH, RAMZI MD Unavailable Unavailable KHAIRALLAH, RAMZI MD Unavailable Unavailable KHAIRALLAH, RAMZI MD Unavailable Unavailable Re-disclosure Warning The records that you are about to access may contain information from federally-assisted alcohol or drug abuse programs. If such information is present, then the following federally mandated warning applies: This information has been disclosed to you from records protected by federal confidentiality rules (42 CFR part 2). The federal rules prohibit you from making any further disclosure of this information unless further disclosure is expressly permitted by the written consent of the person to whom it pertains or as otherwise permitted by 42 CFR part 2. A general authorization for the release of medical or other information is NOT sufficient for this purpose. The Federal rules restrict any use of the information to criminally investigate or prosecute any alcohol or drug abuse patient.The records that you are about to access may contain highly sensitive health information, the redisclosure of which is protected by Article 27-F of the [facility] Public Health law. If you continue you may have access to information: Regarding HIV / AIDS; Provided by facilities licensed or operated by the [facility] Office of Mental Health; or Provided by the [facility] Office for People With Developmental Disabilities. If such information is present, then the following [facility] mandated warning applies: This information has been disclosed to you from confidential records which are protected by state law. State law prohibits you from making any further disclosure of this information without the specific written consent of the person to whom it pertains, or as otherwise permitted by law. Any unauthorized further disclosure in violation of state law may result in a fine or halfway sentence or both. A general authorization for the release of medical or other information is NOT sufficient authorization for further disc losure. Allergies and Adverse Reactions Type Description Substance Reaction Status Data Source(s ) Allergy to substance No Known Allergies No known allergies (situation ) ECHO (Vicente Burr MD [facility]) Family History Family Member Name Family Member Gender Family Member Status Date o f Status Description Data Source(s) Unknown Unknown Problem MEDENT ([facility], [facility]) Unknown Male Problem MEDENT ([facility] () Unknown Female Problem MEDENT ([facility]) Unknown Female Problem MEDENT ([facility]) Encounters Encounter Providers Location Date Indications Data Source(s ) Out[place] [address] [facility] [address] 08/05/2021 12:00:00 AM EDT eCW1 ([facility]) Outpatient Attender: Maxwell Dougherty MD Main Office 06/25/2021 03:30:00 PM EDT MEDENT ([facility]) Outpatient [address] [facility] [address] 06/09/2021 12:00:00 AM EDT eCW1 ([facility]) Outpatient Attender: NABOR murray 05/29/2021 01:50:00 PM EDT MEDENT ([facility], [facility]) Attender: RADHA DAMICO MD [facility] 04/13/2021 09:31:00 AM EDT - 04/13/2021 09:31:00 AM EDT [facility] ( [facility]) Attender: Mary ARANGO [facility] 03/13/2021 09:05:00 AM EDT - 03/13/2021 09:05:00 AM EDT [facility] ( [facility]) OutpatientOFFICE/OUTPATIENT VISIT, EST Attender: Mary Willis [facility] 02/24/2021 12:00:00 PM EDT - 02/24/2021 12:00:00 PM EDT Other penitentiary (current) drug therapyRh eumatoid arthritis without rheumatoid factor, multiple sites [facility] ([facility]) Other penitentiary (current) drug therapy Rheumatoid arthritis without rheumatoid factor, multiple sites Unknown [address] [facility] [address] 02/24/2021 12:00:00 AM EDT eCW1 ([facility]) Attender: Mary ARANGO [facility] 02/20/2021 04:42:00 PM EDT - 02/20/2021 04:42:00 PM [facility] Attender: Dahlia Ramos [facility] 01/27/2021 10:44:00 AM EDT - 01/27/2021 10:44:00 AM EDT [facility] ( [facility]) Attender: Mary Valladares SETTLEMENT CLERK-C [facility] 01/27/2021 10:44:00 AM EDT - 01/27/2021 10:44:00 AM EDT [facility] ( [facility]) Attender: Mary Valladares SETTLEMENT CLERK-C [facility] 01/13/2021 10:01:00 AM EST - 01/13/2021 10:01:00 AM EST [facility]) <td ID="encounterTypeDescriptionID0">1 Y ear Follow-Up & Testing</td><td>Vicente Chavez MD, FACS</td><td>Vicente Chavez MD [facility]</td><td>01/12/2021</td><td>2:58PM</td><td>04/05/2019 11:59PM</td><td><content ID="encounterDiagnosisID0-0">Dry Eye Syndrome Both Eyes</content>, <content ID="encounterDiagnosisID0-1">Rheumatoid Arthritis Rf Positive</content>, <content ID="encounterDiagnosisID0-2">Vitreous Disorders Degeneration</content>, <content ID="encounterDiagnosisID0-3">Rehabilitator Use of Other Medications</content></td>Outpatient Attender: Vicente Burr MD, FACS Vicente Chavez MD [facility] 01/12/2021 02:58:00 PM EST - 04/05/2019 11:59:00 PM EDT Vitreous Disorders DegenerationRheumatoi d Arthritis Rf PositiveLong Term Use of Other MedicationsDry Eye Syndrome Both Eyes ECHO ([facility]icente Burr MD [facility]) Vitreous Disorders Degeneration Rheumatoid Arthritis Rf Positive Rehabilitator Use of Other Medications Dry Eye Syndrome Both Eyes Attender: Mary Valladares SETTLEMENT CLERK-C [facility] 12/22/2020 09:29:00 AM EST - 12/22/2020 09:29:00 AM EST [facility] ( [facility]) Attender: Mary Valladares SETTLEMENT CLERK-C [facility] 12/10/2020 02:54:00 PM EST - 12/10/2020 02:54:00 PM EST Other penitentiary (current) drug therapyRheumatoid arthritis without rheumatoid factor, multiple sites [facility] ([facility]) Other penitentiary (current) drug therapy Rheumatoid arthritis without rheumatoid factor, multiple sites Attender: Mary Valladares SETTLEMENT CLERK-C [facility] 12/09/2020 09:03:00 AM EST - 12/09/2020 09:03:00 AM EST [facility] ( [facility]) Outpatient [address] [facility], [facility] [address] 12/08/2020 12:00:00 AM EST eCW1 ([facility]) Attender: Mary Valladares NP-C [facility] 11/21/2020 09:08:00 AM EST - 11/21/2020 09:08:00 AM EST [facility] ( [facility]) Attender: Mary Valladares NP-C [facility] 10/23/2020 02:41:00 PM EST - 10/23/2020 02:41:00 PM EST [facility] ( [facility]) [facility]/21/2020 11:58:00 AM EST - 10/21/2020 11:58:00 AM EST [facility] ( [facility]) Unknown [address] [facility] [id number] 09/25/2020 12:00:00 AM EST eCW1 ([facility]) Attender: Mary Valladares NP-C [facility] 09/22/2020 10:53:00 AM EST - 09/22/2020 10:53:00 AM EST [facility] ( [facility]) Attender: Mary Valladares SETTLEMENT CLERK-C [facility] 08/26/2020 12:20:00 PM EDT - 08/26/2020 12:20:00 PM EDT Other penitentiary (current) drug therapyRheumatoid arthritis without rheumatoid factor, multiple sites [facility] ([facility]) Other salvage determiner (current) drug therapy Rheumatoid arthritis without rheumatoid factor, multiple sites Attender: Mary ARANGO [facility] 08/26/2020 12:00:00 PM EDT - 08/26/2020 12:00:00 PM EDT Other penitentiary (current) drug therapyRheumatoid arthritis without rheumatoid factor, multiple sites [facility] ([facility]) Other salvage determiner (current) drug therapy Rheumatoid arthritis without rheumatoid factor, multiple sites Attender: Mary ARANGO [facility] 07/30/2020 10:18:00 AM EDT - 07/30/2020 10:18:00 AM EDT [facility] ( [facility]) Immunizations Vaccine Date Status Description Data Source(s) COVID-19 VACCINE Pfizer 08/05/2021 12:00:00 AM EDT completed [facility] Vaccine Series Complete: YESThis Data wa s Submitted to [facility] [employer]. COVID-19 dose #1 given elsewhere Unspecified 11/19/2020 04:0 5:00 PM EST completed eCW1 ([facility]) COVID-19 dose #1 given elsewhere Unspecified 11/19/2020 04:0 5:00 PM EST completed eCW1 ([facility]) COVID-19 dose #1 given elsewhere Unspecified 11/19/2020 04:0 5:00 PM EST completed eCW1 ([facility]) COVID-19(given elsewhere) Unspecified 11/19/2020 04:05:00 PM EST co mpleted eCW1 ([facility]) COVID-19 VACCINE Pfizer 11/19/2020 12:00:00 AM EST completed [facility] Vaccine Series Complete: YESThis Data wa s Submitted to [facility] [employer]. COVID-19 dose #1 given elsewhere Unspecified 10/29/2020 04:0 3:00 PM EST completed eCW1 ([facility]) COVID-19 dose #1 given elsewhere Unspecified 10/29/2020 04:0 3:00 PM EST [facility] [facility] COVID-19 dose #1 given elsewhere Unspecified 10/29/2020 04:0 3:00 PM EST completed eCW1 ([facility]) COVID-19(given elsewhere) Unspecified 10/29/2020 04:03:00 PM EST co mpleted eCW1 ([facility]) COVID-19 VACCINE Pfizer 10/29/2020 12:00:00 AM EST completed NYSIIS Vaccine Series Complete: NOThis Data was Submitted to [facility] Via [employer]. IIV3. This is one of two codes replacing CVX 15, which is being retired. 08/18/2020 04:20:00 PM EDT completed eCW1 ([facility]) IIV3. This is one of two codes replacing CVX 15, which is being retired. 08/18/2020 04:20:00 PM EDT completed eCW1 ([facility]) IIV3. This is one of two codes replacing CVX 15, which is being retired. 08/18/2020 04:20:00 PM EDT completed eCW1 ([facility]) IIV3. This is one of two codes replacing CVX 15, which is being retired. 08/18/2020 04:20:00 PM EDT completed eCW1 ([facility]) Medications Medication Brand Name Start Date Product Form Dose Route Admi nistrative Instructions Pharmacy Instructions Status Indications Reaction Description Data Source(s) Royceab Sutab 06/25/2021 12:00:00 AM EDT active MEDENT ([facility]) NITROFURANTOIN, MACROCRYSTALS 25 MG / Ni trofurantoin, Monohydrate 75 MG Oral Capsule Nitrofurantoin Monohyd Macro 05/29/2021 12:00:00 AM EDT ORAL active MEDENT ([facility], [facility]) Methotrexate 2.5 MG Oral Tablet METHOTREXATE 2.5 MG TA BLET METHOTREXATE 2.5 MG TABLET 04/13/2021 12:00:00 AM EDT 8 {tbl} ORAL active TAKE 8 TABLETS BY MOUTH EVERY WEEK NextGen ([facility]) Folic Acid 1 MG Oral Tablet folic acid 1 mg tablet folic aci d 1 mg tablet 03/13/2021 12:00:00 AM EDT active TAKE 1 TABLET BY MOUTH EVERY DAY NextGen ([facility]) Etanercept 25 MG/ML Injectable Solution [Enbrel] Enbrel 25 mg (1 mL) subcutaneous powder for solution Enbrel 25 mg (1 mL) subcutaneous powder for solution 03/13/2021 12:00:00 AM EDT active etanercept 25 MG/ML Injectable Solution [Enbrel] NextGen ([facility]) VIALS Hydroxychloroquine Sulfate 200 MG Oral T ablet [Plaquenil] Plaquenil 200 mg tablet Plaquenil 200 mg tablet 02/24/2021 12:00:00 AM EDT active hydroxychloroquine sulfate 200 MG Oral Tablet [Plaquenil] NextGen ([facility]) Folic Acid 1 MG Oral Tablet folic acid 1 mg tablet folic aci d 1 mg tablet 02/24/2021 12:00:00 AM EDT completed TAKE 1 TABLET BY MOUTH EVERY DAY [facility] ([facility]) Prednisone 5 MG Oral Tablet prednisone 5 mg tablet prednison e 5 mg tablet 02/24/2021 12:00:00 AM EDT active take 3 tablet by oral route every day for 4 days then decrease by 1 tab every 4 days [facility] ([facility]) Sulfasalazine 500 MG Delayed Release Ora l Tablet sulfasalazine 500 mg tablet,delayed release sulfasalazine 500 mg tablet,delayed release 02/24/2021 12:00:00 AM EDT 1 {tbl} ORAL active take 1 tablet by oral route 2 times every day after meals [facility] ([facility]) Methotrexate 2.5 MG Oral Tablet methotrexate sodium 2. 5 mg tablet methotrexate sodium 2.5 mg tablet 01/27/2021 12:00:00 AM EDT 8 {tbl} ORAL completed take 8 Tablet by oral route every week [facility] ([facility]) Feosol 325 MG Oral Tablet Feosol 325 MG Oral Tablet 01/12/2021 1 2:00:00 AM EST active Feosol ECHO (Vicente Burr MD [facility]) Folic Acid 1 MG Oral Tablet FOLIC ACID 1 MG TABLET FOLIC ACI D 1 MG TABLET 12/22/2020 12:00:00 AM EST completed TAKE 1 TABLET BY MOUTH EVERY DAY NextGen ([facility]) Prednisone 10 MG Oral Tablet prednisone 10 mg tablet prednis one 10 mg tablet 12/10/2020 12:00:00 AM EST completed take 1 tablet by oral route for 7-10 days with food Next ([facility]) Niferex - Niferex - 12/08/2020 12:00:00 AM EST act kathleen Niferex - eCW1 ([facility]) Niferex - Niferex - 12/08/2020 12:00:00 AM EST act kathleen Niferex - eCW1 ([facility]) Niferex - Niferex - 12/08/2020 12:00:00 AM EST act kathleen Niferex - eCW1 ([facility]) Niferex - Niferex - 12/08/2020 12:00:00 AM EST act kathleen Niferex - eCW1 ([facility]) Etanercept 25 MG/ML Injectable Solution [Enbrel] Enbrel 25 mg (1 mL) subcutaneous powder for solution Enbrel 25 mg (1 mL) subcutaneous powder for solution 11/21/2020 12:00:00 AM EST completed etanercept 25 MG/ML Injectable Solution [Enbrel] NextGen ([facility]) VIALS Folic Acid 1 MG Oral Tablet FOLIC ACID 1 MG TABLET FOLIC ACI D 1 MG TABLET 09/22/2020 12:00:00 AM EST completed TAKE 1 TABLET BY MOUTH EVERY DAY [facility] ([facility]) Sulfasalazine 500 MG Delayed Release Ora l Tablet sulfasalazine 500 mg tablet,delayed release sulfasalazine 500 mg tablet,delayed release 08/26/2020 12:00:00 AM EDT 1 {tbl} ORAL completed take 1 tablet by oral route 2 times every day after meals [facility] ([facility]) Hydroxychloroquine Sulfate 200 MG Oral T ablet [Plaquenil] Plaquenil 200 mg tablet Plaquenil 200 mg tablet 08/26/2020 12:00:00 AM EDT completed hydroxychloroquine sulfate 200 MG Oral Tablet [Plaquen il] Next[facility] ([facility]) Etanercept 25 MG/ML Injectable Solution [Enbrel] Enbrel 25 mg (1 mL) subcutaneous powder for solution Enbrel 25 mg (1 mL) subcutaneous powder for solution 08/26/2020 12:00:00 AM EDT completed etanercept 25 MG/ML Injectable Solution [Enbrel] NextGen ([facility]) VIALS Prednisone 1 MG Oral Tablet prednisone 1 mg tablet prednison e 1 mg tablet 08/26/2020 12:00:00 AM EDT active TAKE 3 TABLETS BY MOUTH EVERY DAY Next[facility] ([facility]) Methotrexate 2.5 MG Oral Tablet methotrexate sodium 2. 5 mg tablet methotrexate sodium 2.5 mg tablet 08/26/2020 12:00:00 AM EDT 8 {tbl} ORAL completed take 8 Tablet by oral route every week [facility] Methotrexate 2.5 MG Oral Tablet METHOTREXATE 2.5 MG TA BLET METHOTREXATE 2.5 MG TABLET 07/30/2020 12:00:00 AM EDT 8 {tbl} ORAL active TAKE 8 TABLETS BY MOUTH EVERY WEEK NextGen ([facility]) Methotrexate 2.5 MG Oral Tablet methotrexate sodium 2. 5 mg tablet methotrexate sodium 2.5 mg tablet 05/20/2020 12:00:00 AM EDT 8 {tbl} ORAL completed take 8 Tablet by oral route every week [facility] ([facility]) Insurance Providers Payer name Policy type / Coverage type Policy ID Covered democrat ID Covered democrat's relationship to rosenbaum Policy Rosenbaum Plan Information [id number] BS [place] Medig[place] Part B [id number] Self BS [place] Med[place] B [id number] Self Y [id number] BS Of [place] Commercial [id number] Self V [id number] BC/BS Of [place] Commercial [id number] Self V [id number] BCBS of [facility] Other 0 [id number] Self 0 BS Of [place] Commercial [id number] Self V [id number] BCBS of [facility] Other 0 [id number] Self 0 BS [place] Commercial [id number] Self BS [place] Commercial [id number] Self V [id number] [place] PPO 302/307 [id number] SP [id number] BC[employer] Commercial [id number] Self [id number] ANSI-Commercial [id number] ANSI-Commercial [id number] [place] 306/806 [id number] SP [id number] [employer] BCBS Medigap Part B [id number] Self [employer] BCBS Health Maintenance Organization (O) [id number] Self [id number] BCBS OF [place] 306/806 [id number] SP [id number] BCBS/[place] Commercial [id number] Self [employer] BCBS P UNAVAILABLE [id number] S UNAV AILABLE ANSI-Commercial [id number] BCBS OF [place] 306/806 [id number] SP [id number] [employer] BCBS B [id number] S [id number] ANSI-Commercial [id number] ANSI-Commercial [id number] ANSI-Commercial [id number] ANSI-Commercial [id number] ANSI-Commercial [id number] BCBS OF [place] 306/806 [id number] SP [id number] [facility] O [id number] S [id number] Problems, Conditions, and Diagnoses Code Display Name Description Problem Type Effective Dates Data Source(s) 576694443 Anemia Anemia Problem 06/25/2021 12:00:00 AM ED T MEDENT ([facility]) D50.9 [id number] Iron deficiency anemia, unspecif ied iron deficiency anemia type Problem 09/01/2020 12:00:00 AM EDT eCW1 ([facility]) Surgeries/Procedures Procedure Description Date Indications Data Source(s) OFFICE OUTPATIENT NEW 30 MINUTES 06/25/2021 12:00:00 A M EDT MEDENT ([facility]) OFFICE OUTPATIENT VISIT 15 MINUTES 05/29/2021 12:00:00 AM EDT MEDENT ([facility], [facility]) OFFICE/OUTPATIENT VISIT, EST 02/24/2021 12:00:00 AM EDT - 02/24/2021 12:00:00 AM EDT [facility] ([facility]) Visual Field Visual Field 01/12/2021 12:00:00 AM ISABELLE GILES (Vicente Burr MD [facility]) Scodi Retina, with interpretation and report Scodi Ret atif, with interpretation and report 01/12/2021 12:00:00 AM EST ECHO (Zack id A Kayla Burr MD [facility]) Intermediate Eye Exam Established Patient (25) Interme diate Eye Exam Established Patient (25) 01/12/2021 12:00:00 AM EST ECHO (Zack id A Kayla Burr MD [facility]) Results ID Date Data Source [id number] 05/29/2021 01:42:00 PM EDT MEDENT ([facility]) Name Value Range Interpretation Code Description Data Yasmin rce(s) Supporting Document(s) Bacteria identified in Urine by Culture Laboratory test result MEDENT ([facility]) <content>FULL REPORT IN LAB NOTES ([facility]</content>
<content></content>
<content>ORGANISM 1: ESCHERICHIA COLI</content>
<content></content>
<content>COLONY COUNT 50,000</content>
<content></content>
<content></content>
<content>OR GANISM 1: ESCHERICHIA COLI</content>
<content></content>
<content> ESCHERICHIA COLI: REACTION</content>
<content>TRIMETHOPRIM/SULFAMETHOXAZOLE IV 160mg TMP & 800mg SMXq6h >=320 R</content>
<content> TRIMETHOPRIM/SULFAMETHOXAZOLE PO Bactrim DS Bid >=320 R</content>
<content>AMPICILLIN IV 500mg q6h >=32 R</content>
<content>AMPICILLIN PO 500mg q6h fasting >=32 R</content>
<content>GENTAMICIN IV 80mg q8h >=16 R</content>
<content>NITROFURANTOIN PO 100mg BID <=16 S</content>
<content>CEFAZOLIN IV 1gm q8h 32 R</content>
<content>LEVOFLOXACIN IV 500mg qd >=8 R</content>
<content>LEVOFLOXACIN PO 250mg qd >=8 R</content>
<content>LEVOFLOXACIN PO 500mg qd >=8 R</content>
<content>TOBRAMYCIN IV 80mg q8h 8 I</content>
<content>CEFTRIAXONE IV 1gm q24h <=1 S</content>
<content>CEFTAZIDIME IV 1gm q8h <=1 S</content>
<content>AMPICILLIN/SULBACTAM IV 1.5g q6h >=32 R</content>
<content>PIPERACILLIN/TAZOBACTAM IV 2.25 gm q6h >=128 R</content>
<content>AZTREONAM IV 1gm q8h <=1 S</content>
<content>ERTAPENEM IV 1gm qd <=0.5 S</content>
<content> MEROPENEM IV 1 gm q8h <=0.25 S</content>
<content>MEROPENEM IV 500 mg q8h <=0.25 S</content>
<content>TIGECYCLINE IV 50mg q12h <=0.5 S</content>
<content>CEFEPIME IV 1 gm q12h <=1 S</content>
<content>CEFEPIME IV 2 gm q12h <=1 S</content>
<content>EXTD BRD SPCTRM BETA LACTAMASE IV NEGATIVE FOR ESBL</content>
<content></content> Procedure Social History Code Duration Value Status Description Data Source(s ) Smoking 08/05/2021 12:00:00 AM EDT Never Smoker completed Never S moker eCW1 ([facility]) Smoking 06/09/2021 12:00:00 AM EDT Never Smoker completed Never S moker eCW1 ([facility]) Smoking 05/29/2021 12:00:00 AM EDT Patient has never smoked co mpleted Patient has never smoked MEDENT ([facility], [facility]) Caffeine Use Details 02/24/2021 12:00:00 AM EDT soda, 16 oz comple brian soda, 16 oz NextGen ([facility]) 02/24/2021 12:00:00 AM EDT Never smoked tobacco comple brian Never smoked tobacco NextGen ([facility]) Alcohol Use Details 02/24/2021 12:00:00 AM EDT wine 1 glass monthly completed wine 1 glass monthly Next[facility] ([facility]) Smoking 02/24/2021 12:00:00 AM EDT Never smoker completed Never s moker NextGen ([facility]) Smoking 01/12/2021 04:28:25 PM EST Never smoked tobacco (findi ng) completed Never smoked tobacco (finding) ECHO (Vicente Burr MD [facility]) Smoking 12/08/2020 12:00:00 AM EST Never Smoker completed Never S moker eCW1 ([facility]) Smoking 12/08/2020 12:00:00 AM EST Never Smoker completed Never S moker eCW1 ([facility]) Smoking 09/01/2020 12:00:00 AM EDT Never Smoker completed Never S moker eCW1 ([facility]) Vital Signs ID Date Data Source UNK Name Value Range Interpretation Code Description Data Source(s) Body weight 249 [lb_av] 249 [lb_av] eCW1 ([facility] Body weight 112.94 kg 112.94 kg W1 ([facility]) Body height 64 [in_i] 64 [in_i] eCW1 ([facility]) Body mass index (BMI) [Ratio] 42.74 kg/m2 42.74 kg/m2 eCW1 ([facility]) Systolic blood pressure 118 mm[Hg] 118 mm[Hg] e CW1 ([facility]) Diastolic blood pressure 70 mm[Hg] 70 mm[Hg] eCW1 ([facility]) Body height 64 [in_i] 64 [in_i] MEDENT ([facility]) 5'4" Body weight 244.00 [lb_av] 244.00 [lb_av] MEDEN T ([facility]) Systolic blood pressure 95 mm[Hg] 95 mm[Hg] M EDENT ([facility]) Diastolic blood pressure 71 mm[Hg] 71 mm[Hg] MEDENT ([facility]) Heart rate 51 /min 51 /min [facility] ([facility]) Body mass index (BMI) [Ratio] 41.9 kg/m2 41.9 k g/m2 MEDENT ([facility]) Body weight 110.678 kg 110.678 kg [facility]) Body temperature 96.4 [degF] 96.4 [degF] MEDENT ([facility]) Body weight 247.4 [lb_av] 247.4 [lb_av] eCW1 ([facility]) Body height 64 [in_i] 64 [in_i] eCW1 ([facility]) Body mass index (BMI) [Ratio] 42.46 kg/m2 42.46 kg/m2 eCW1 ([facility]) Heart rate 101 /min 101 /min eCW1 ([facility]) Respiratory rate 18 /min 18 /min eCW1 ([facility]) Body temperature 98.0 [degF] 98.0 [degF] eCW1 ( [facility]) Systolic blood pressure 114 mm[Hg] 114 mm[Hg] e CW1 ([facility]) Diastolic blood pressure 78 mm[Hg] 78 mm[Hg] eCW1 ([facility]) Heart rate 67 /min 67 /min MEDENT ([facility], [facility]) Body temperature 98.0 [degF] 98.0 [degF] MEDENT ([facility], [facility]) Body weight 245.00 [lb_av] 245.00 [lb_av] MEDEN T ([facility], [facility]) Body height 64 [in_i] 64 [in_i] MEDENT ([facility], [facility]) 5'4" Body mass index (BMI) [Ratio] 42.0 kg/m2 42.0 k g/m2 MEDENT ([facility], [facility]) Systolic blood pressure 117 mm[Hg] 117 mm[Hg] M EDENT ([facility], [facility]) Diastolic blood pressure 77 mm[Hg] 77 mm[Hg] MEDENT ([facility], [facility]) Respiratory rate 16 /min 16 /min MEDENT ( [facility]) Oxygen saturation in Arterial blood by Pulse oximetry 98 % 98 % MEDENT ([facility]) Body height 162.56 cm 162.56 cm NextGen ([facility]) Body weight 109.316 kg 109.316 kg [facility]) Systolic blood pressure 132 mm[Hg] 132 mm[Hg] N extGen ([facility]) Diastolic blood pressure 74 mm[Hg] 74 mm[Hg] [facility] ([facility]) Body mass index (BMI) [Ratio] 41.37 kg/m2 Overweight 41.37 kg/m2 [facility] ([facility]) Body weight 245.4 [lb_av] 245.4 [lb_av] eCW1 ([facility]) Body height 64 [in_i] 64 [in_i] eCW1 ([facility]) Body mass index (BMI) [Ratio] 42.12 kg/m2 42.12 kg/m2 eCW1 ([facility]) Heart rate 106 /min 106 /min eCW1 ([facility]) Respiratory rate 18 /min 18 /min eCW1 ([facility]) Body temperature 98.7 [degF] 98.7 [degF] eCW1 ( [facility]) Systolic blood pressure 112 mm[Hg] 112 mm[Hg] e CW1 ([facility]) Diastolic blood pressure 74 mm[Hg] 74 mm[Hg] eCW1 ([facility]) Patient Treatment Plan of Care Planned Activity Planned Date Details Description Data Source (s) Methotrexate 2.5 MG Oral Tablet 04/13/2021 12:00:00 AM EDT [facility] ([facility]) Folic Acid 1 MG Oral Tablet 03/13/2021 12:00:00 AM EDT [facility] ([facility]) Etanercept 25 MG/ML Injectable Solution [Enbrel] 03/13/2021 12:00:0 0 AM EDT Counts include 234 beds at the [facility] ([facility]) Prednisone 5 MG Oral Tablet 02/24/2021 12:00:00 AM EDT Counts include 234 beds at the [facility] ([facility]) Sulfasalazine 500 MG Delayed Release Oral Tablet 02/24/2021 12:00:0 0 AM EDT NextGen ([facility]) Hydroxychloroquine Sulfate 200 MG Oral Tablet [Plaquen il] 02/24/2021 12:00:00 AM EDT [facility] ([facility]) Folic Acid 1 MG Oral Tablet 02/24/2021 12:00:00 AM EDT NextGen ([facility]) Methotrexate 2.5 MG Oral Tablet 01/27/2021 12:00:00 AM EDT Next[facility] ([facility]) Folic Acid 1 MG Oral Tablet 12/22/2020 12:00:00 AM EST NextGen ([facility]) Prednisone 10 MG Oral Tablet 12/10/2020 12:00:00 AM EST NextGen ([facility]) Niferex - 12/08/2020 12:00:00 AM EST e CW1 ([facility]) Niferex - 12/08/2020 12:00:00 AM EST e CW1 ([facility]) Niferex - 12/08/2020 12:00:00 AM EST e CW1 ([facility]) Etanercept 25 MG/ML Injectable Solution [Enbrel] 11/21/2020 12:00:0 0 AM EST [facility] ([facility]) Folic Acid 1 MG Oral Tablet 09/22/2020 12:00:00 AM EST [facility] ([facility]) Prednisone 1 MG Oral Tablet 08/26/2020 12:00:00 AM EDT [facility] ([facility]) Hydroxychloroquine Sulfate 200 MG Oral Tablet [Plaquen il] 08/26/2020 12:00:00 AM EDT [facility] ([facility]) Sulfasalazine 500 MG Delayed Release Oral Tablet 08/26/2020 12:00:0 0 AM EDT [facility] ([facility]) Etanercept 25 MG/ML Injectable Solution [Enbrel] 08/26/2020 12:00:0 0 AM EDT [facility] ([facility]) Methotrexate 2.5 MG Oral Tablet 08/26/2020 12:00:00 AM EDT Next[facility] ([facility]) Methotrexate 2.5 MG Oral Tablet 07/30/2020 12:00:00 AM EDT Next[facility] ([facility]) Methotrexate 2.5 MG Oral Tablet 05/20/2020 12:00:00 AM EDT [facility] ([facility])
[2021-08-21] MEDS ORDERED: fentaNYL 100 MCG/2 ML INJECTION (J3010) As Ordered ONE (11:30)
[2021-08-21] MEDS ORDERED: LIDOCAINE 2% 100MG/5ML SDV (FOR ANES.) As Ordered ONE (11:30)
[2021-08-21] MEDS ORDERED: propofoL 500 MG/50 ML VIAL As Ordered ONE (11:30)
--- NOTE | 2021-08-21 12:40 | ROOR ---
Patient Name: Mayra Barajas Procedure Date: 08/21/2021 12:23 PM Date of : 1960 Age: 61 Room: [facility] Gender: Female Note Status: Finalized Procedure: Upper Endoscopy + Biopsies Indications: Unexplained iron deficiency anemia Providers: Maxwell Dougherty MD Referring MD: Andre Dickson MD Requesting Provider: Medicines: Monitored Anesthesia Care Complications: No immediate complications. Procedure: Pre-Anesthesia Assessment: - The heart rate, respiratory rate, oxygen saturations, blood pressure, adequacy of pulmonary ventilation, and response to care were monitored throughout the procedure. The Endoscope was introduced through the mouth, and advanced to the second part of duodenum. The upper GI endoscopy was accomplished without difficulty. The patient tolerated the procedure well. Findings: The Z-line was irregular and was found 40 cm from the incisors. Multiple biopsies were obtained with cold forceps for evaluation to rule out Suarez's Esophagus randomly at the gastroesophageal junction. Diffuse mild inflammation characterized by congestion (edema) and erosions was found on the greater curvature of the stomach. Biopsies were taken with a cold forceps for Helicobacter pylori testing. The exam of the duodenum was otherwise normal. Impression: - Z-line irregular, 40 cm from the incisors. - Mucosal changes suspicious for gastritis. Biopsied. - Multiple biopsies were obtained at the gastroesophageal junction. - The examination was otherwise normal. Recommendation: - Patient has a contact number available for emergencies. The signs and symptoms of potential delayed complications were discussed with the patient. Return to normal activities tomorrow. Written discharge instructions were provided to the patient. - High fiber diet. - Discharge patient to home. - Follow an antireflux regimen. - Continue present medications. - Await pathology results. - Telephone GI clinic for pathology results in 1 week. - Return to referring physician. - The findings and recommendations were discussed with the patient. Procedure Code(s): --- Professional --- 14610, Esophagogastroduodenoscopy, flexible, transoral; with biopsy, single or multiple Diagnosis Code(s): --- Professional --- K22.8, Other specified diseases of esophagus K31.89, Other diseases of stomach and duodenum D50.9, Iron deficiency anemia, unspecified CPT copyright 2019 [employer]. All rights reserved. The codes documented in this report are preliminary and upon cryptologic technician technical review may be revised to meet current compliance requirements. Maxwell Dougherty MD Maxwell Dougherty MD 08/21/2021 12:39:50 PM Electronically signed by Maxwell Dougherty MD Number of Addenda: 0 Note Initiated On: 08/21/2021 12:23 PM Estimated Blood Loss: Estimated blood loss: none.
--- NOTE | 2021-08-21 12:58 | ROOR ---
Patient Name: Mayra Barajas Procedure Date: 08/21/2021 12:25 PM Date of : 1960 Age: 61 Room: [facility] Gender: Female Note Status: Finalized Procedure: Total Colonoscopy to Cecum + Biopsy Polypectomy Indications: Unexplained iron deficiency anemia Providers: Maxwell Dougherty MD Referring MD: Andre Dickson MD Requesting Provider: Medicines: Monitored Anesthesia Care Complications: No immediate complications. Procedure: Pre-Anesthesia Assessment: - The heart rate, respiratory rate, oxygen saturations, blood pressure, adequacy of pulmonary ventilation, and response to care were monitored throughout the procedure. The Colonoscope was introduced through the anus and advanced to the cecum, identified by appendiceal orifice and ileocecal valve. The colonoscopy was performed without difficulty. The patient tolerated the procedure well. The quality of the bowel preparation was excellent. Findings: The perianal and digital rectal examinations were normal. Non-bleeding internal hemorrhoids were found during retroflexion. The hemorrhoids were small and Grade I (internal hemorrhoids that do not prolapse). A small polyp was found at 60 cm proximal to the anus. The polyp was sessile. The polyp was removed with a jumbo cold forceps. Resection and retrieval were complete. The exam was otherwise without abnormality on direct and retroflexion views. Impression: - Non-bleeding internal hemorrhoids. - One small polyp at 60 cm proximal to the anus, removed with a jumbo cold forceps. Resected and retrieved. - The examination was otherwise normal on direct and retroflexion views. - The exam was otherwise normal to the cecum. Recommendation: - Patient has a contact number available for emergencies. The signs and symptoms of potential delayed complications were discussed with the patient. Return to normal activities tomorrow. Written discharge instructions were provided to the patient. - High fiber diet. - Discharge patient to home. - Continue present medications. - Await pathology results. - Telephone GI clinic for pathology results in 1 week. - Repeat colonoscopy in 5 years for surveillance based on pathology results. - Return to referring physician. - The findings and recommendations were discussed with the patient. Procedure Code(s): --- Professional --- 87754, Colonoscopy, flexible; with biopsy, single or multiple Diagnosis Code(s): --- Professional --- K64.0, First degree hemorrhoids K63.5, Polyp of colon D50.9, Iron deficiency anemia, unspecified CPT copyright 2019 [employer]. All rights reserved. The codes documented in this report are preliminary and upon commercial housekeeper review may be revised to meet current compliance requirements. Maxwell Dougherty MD Maxwell Dougherty MD 08/21/2021 12:58:24 PM Electronically signed by Maxwell Dougherty MD Number of Addenda: 0 Note Initiated On: 08/21/2021 12:25 PM Estimated Blood Loss: Estimated blood loss: none.
[2021-08-21 13:25] VITALS: BP 121/72
== END 2021-08-21 13:38 | disposition home or self-care (01) ==
LOC: M OPP 10:22
PROVIDERS: ATTEND Internal Medicine Gastroenterology
DX: D12.6 Benign neoplasm of colon, unspecified (principal); K64.0 First degree hemorrhoids; D50.9 Iron deficiency anemia, unspecified; K22.89 Other specified disease of esophagus; K31.89 Other diseases of stomach and duodenum; G47.30 Sleep apnea, unspecified; Z79.899 Other long term (current) drug therapy; Z88.5 Allergy status to narcotic agent; Z88.6 Allergy status to analgesic agent
CPT/HCPCS: 43239; 45380; 88305; J3010

== ENCOUNTER → 2021-08-24 | Outpatient (CLI) | payer BC ==
[~2021-08-24] MED LIST changes: -NS 1,000 ML IV ONE
[2021-08-24 17:16] LABS: BASO % 0.7 % (0.0-1.0); EOS # 0.1 10^3/uL (0.0-0.5); EOS % 1.9 % (0.0-3.0); HEMATOCRIT 36.6 % (36.0-47.0); LYMPH # 1.4 10^3/uL (1.5-5.0); LYMPH % 25.8 % (24.0-44.0); MEAN CORPUSCULAR HEMOGLOBIN 29.3 pg (27.0-33.0); MEAN CORPUSCULAR HGB CONC 32.8 g/dl (32.0-36.5); MEAN CORPUSCULAR VOLUME 89.3 fl (80.0-96.0); MONO # 0.5 10^3/uL (0.0-0.8); MONO % 9.8 % (2.0-8.0); NEUTROPHILS # 3.3 10^3/uL (1.5-8.5); NEUTROPHILS % 61.2 % (36.0-66.0); PLATELET COUNT, AUTOMATED 263 10^3/uL (150-450); WHITE BLOOD COUNT 5.4 10^3/uL (4.0-10.0)
[2021-08-24 17:27] LABS: ALT/SGPT 37 U/L (12-78); BLOOD UREA NITROGEN 18 MG/DL (7-18); C REACTIVE PROTEIN QUANTITATIV 0.82 MG/DL (0.00-0.30); CREATININE FOR GFR 0.96 MG/DL (0.55-1.30); GLOMERULAR FILTRATION RATE > 60.0 (>51)
[2021-08-24 17:50] LABS: ERYTHROCYTE SEDIMENTATION RATE 46 mm/hr (0-30)
== END ==
LOC: M LAB 16:15
PROVIDERS: ATTEND Nurse Practitioner
DX: M06.09 Rheumatoid arthritis without rheumatoid factor, multiple sites (principal); Z79.899 Other long term (current) drug therapy

== ENCOUNTER → 2021-12-04 | Outpatient (CLI) | payer BC | LOC: M LAB 16:39 | PROVIDERS: ATTEND Physician Assistant | DX: Z51.81 Encounter for therapeutic drug level monitoring (principal); Z79.899 Other long term (current) drug therapy; M06.09 Rheumatoid arthritis without rheumatoid factor, multiple sites; M25.522 Pain in left elbow ==

== ENCOUNTER → 2021-12-04 | Outpatient (CLI) | payer BC | LOC: M LAB 16:45 | PROVIDERS: ATTEND Internal Medicine | DX: I10 Essential (primary) hypertension (principal); D50.9 Iron deficiency anemia, unspecified; Z11.59 Encounter for screening for other viral diseases ==

== ENCOUNTER → 2022-02-05 | Outpatient (CLI) | payer BC ==
[2022-02-05 17:34] LABS: BASO % 0.7 % (0.0-1.0); EOS # 0.1 10^3/uL (0.0-0.5); EOS % 2.1 % (0.0-3.0); HEMATOCRIT 36.7 % (36.0-47.0); LYMPH # 1.8 10^3/uL (1.5-5.0); LYMPH % 30.1 % (24.0-44.0); MEAN CORPUSCULAR HEMOGLOBIN 31.3 pg (27.0-33.0); MEAN CORPUSCULAR HGB CONC 32.7 g/dl (32.0-36.5); MEAN CORPUSCULAR VOLUME 95.8 fl (80.0-96.0); MONO # 0.5 10^3/uL (0.0-0.8); MONO % 8.8 % (2.0-8.0); NEUTROPHILS # 3.4 10^3/uL (1.5-8.5); NEUTROPHILS % 57.8 % (36.0-66.0); PLATELET COUNT, AUTOMATED 322 10^3/uL (150-450); RED BLOOD COUNT 3.83 10^6/uL (4.00-5.40); WHITE BLOOD COUNT 5.8 10^3/uL (4.0-10.0)
[2022-02-05 17:46] LABS: ALT/SGPT 37 U/L (12-78); BLOOD UREA NITROGEN 17 MG/DL (7-18); C REACTIVE PROTEIN QUANTITATIV 1.09 MG/DL (0.00-0.30); CREATININE FOR GFR 0.88 MG/DL (0.55-1.30); GLOMERULAR FILTRATION RATE > 60.0 (>51)
[2022-02-05 19:01] LABS: ERYTHROCYTE SEDIMENTATION RATE 56 mm/hr (0-30)
== END ==
LOC: M LAB 16:20
PROVIDERS: ATTEND Physician Assistant
DX: M06.09 Rheumatoid arthritis without rheumatoid factor, multiple sites (principal); M25.522 Pain in left elbow; Z79.899 Other long term (current) drug therapy

== ENCOUNTER → 2022-05-15 | Outpatient (CLI) | payer BC ==
[2022-05-15 12:21] LABS: BASO % 0.9 % (0.0-1.0); EOS # 0.1 10^3/uL (0.0-0.5); HEMATOCRIT 36.1 % (36.0-47.0); HEMOGLOBIN 11.5 g/dl (12.0-15.5); LYMPH # 1.4 10^3/uL (1.5-5.0); LYMPH % 29.2 % (24.0-44.0); MEAN CORPUSCULAR HEMOGLOBIN 29.2 pg (27.0-33.0); MEAN CORPUSCULAR HGB CONC 31.9 g/dl (32.0-36.5); MEAN CORPUSCULAR VOLUME 91.6 fl (80.0-96.0); MONO # 0.3 10^3/uL (0.0-0.8); MONO % 7.3 % (2.0-8.0); NEUTROPHILS # 2.8 10^3/uL (1.5-8.5); NEUTROPHILS % 59.4 % (36.0-66.0); PLATELET COUNT, AUTOMATED 294 10^3/uL (150-450); RED BLOOD COUNT 3.94 10^6/uL (4.00-5.40); WHITE BLOOD COUNT 4.6 10^3/uL (4.0-10.0)
[2022-05-15 12:47] LABS: ALBUMIN 3.5 GM/DL (3.2-5.2); ALT/SGPT 25 U/L (12-78); BILIRUBIN,TOTAL 0.9 MG/DL (0.2-1.0); BLOOD UREA NITROGEN 19 MG/DL (7-18); CALCIUM LEVEL 8.9 MG/DL (8.5-10.1); CARBON DIOXIDE LEVEL 29 MEQ/L (21-32); CHLORIDE LEVEL 108 MEQ/L (98-107); CREATININE FOR GFR 0.89 MG/DL (0.55-1.30); GLOMERULAR FILTRATION RATE > 60.0 (>51); GLUCOSE, FASTING 93 MG/DL (70-100); POTASSIUM SERUM 3.6 MEQ/L (3.5-5.1); SODIUM LEVEL 142 MEQ/L (136-145); TOTAL PROTEIN 7.2 GM/DL (6.4-8.2)
== END ==
LOC: M LAB 11:52
PROVIDERS: ATTEND Internal Medicine
DX: I10 Essential (primary) hypertension (principal); D50.9 Iron deficiency anemia, unspecified; M06.09 Rheumatoid arthritis without rheumatoid factor, multiple sites; Z79.899 Other long term (current) drug therapy

== ENCOUNTER → 2022-05-15 | Outpatient (CLI) | payer BC ==
[2022-05-15 12:21] LABS: BASO % 0.6 % (0.0-1.0); EOS # 0.2 10^3/uL (0.0-0.5); EOS % 3.2 % (0.0-3.0); HEMATOCRIT 34.9 % (36.0-47.0); HEMOGLOBIN 11.4 g/dl (12.0-15.5); LYMPH # 1.3 10^3/uL (1.5-5.0); LYMPH % 28.1 % (24.0-44.0); MEAN CORPUSCULAR HEMOGLOBIN 30.2 pg (27.0-33.0); MEAN CORPUSCULAR HGB CONC 32.7 g/dl (32.0-36.5); MEAN CORPUSCULAR VOLUME 92.3 fl (80.0-96.0); MONO # 0.4 10^3/uL (0.0-0.8); MONO % 7.8 % (2.0-8.0); NEUTROPHILS # 2.9 10^3/uL (1.5-8.5); NEUTROPHILS % 60.1 % (36.0-66.0); PLATELET COUNT, AUTOMATED 290 10^3/uL (150-450); RED BLOOD COUNT 3.78 10^6/uL (4.00-5.40); WHITE BLOOD COUNT 4.7 10^3/uL (4.0-10.0)
[2022-05-15 12:39] LABS: ERYTHROCYTE SEDIMENTATION RATE 57 mm/hr (0-30)
[2022-05-15 12:44] LABS: ALT/SGPT 21 U/L (12-78); BLOOD UREA NITROGEN 19 MG/DL (7-18); C REACTIVE PROTEIN QUANTITATIV 0.88 MG/DL (0.00-0.30); CREATININE FOR GFR 0.88 MG/DL (0.55-1.30); GLOMERULAR FILTRATION RATE > 60.0 (>51)
== END ==
LOC: M LAB 11:55
PROVIDERS: ATTEND Nurse Practitioner
DX: M06.09 Rheumatoid arthritis without rheumatoid factor, multiple sites (principal); Z79.899 Other long term (current) drug therapy

== ENCOUNTER → 2022-08-10 | Outpatient (CLI) | payer BC ==
[2022-08-10 15:09] LABS: BASO % 0.7 % (0.0-1.0); EOS # 0.1 10^3/uL (0.0-0.5); EOS % 2.3 % (0.0-3.0); HEMATOCRIT 36.6 % (36.0-47.0); HEMOGLOBIN 11.7 g/dl (12.0-15.5); LYMPH # 1.7 10^3/uL (1.5-5.0); LYMPH % 28.8 % (24.0-44.0); MEAN CORPUSCULAR HEMOGLOBIN 28.7 pg (27.0-33.0); MEAN CORPUSCULAR VOLUME 89.7 fl (80.0-96.0); MONO # 0.5 10^3/uL (0.0-0.8); MONO % 7.9 % (2.0-8.0); NEUTROPHILS # 3.6 10^3/uL (1.5-8.5); PLATELET COUNT, AUTOMATED 320 10^3/uL (150-450); RED BLOOD COUNT 4.08 10^6/uL (4.00-5.40)
[2022-08-10 15:35] LABS: ERYTHROCYTE SEDIMENTATION RATE 56 mm/hr (0-30)
[2022-08-10 15:54] LABS: ALT/SGPT 25 U/L (12-78); BLOOD UREA NITROGEN 16 MG/DL (7-18); C REACTIVE PROTEIN QUANTITATIV 2.38 MG/DL (0.00-0.30); CREATININE FOR GFR 0.98 MG/DL (0.55-1.30); GLOMERULAR FILTRATION RATE > 60.0 (>45)
== END ==
LOC: M WUC 11:39
PROVIDERS: ATTEND Nurse Practitioner
DX: M06.09 Rheumatoid arthritis without rheumatoid factor, multiple sites (principal); Z79.899 Other long term (current) drug therapy

== ENCOUNTER 2022-10-21 08:40 | Emergency (ER) | payer BC ==
[~2022-10-21] VITALS: Ht 162.6 cm; Wt 113.6 kg
[2022-10-21] MEDS ORDERED: HYDR200T3 (09:00)
[2022-10-21] MEDS ORDERED: VALS160T2 (09:00)
[2022-10-21] MEDS ORDERED: PRED5TA (09:00)
[2022-10-21 09:20] LABS: BASO # 0.1 10^3/uL (0.0-0.2); BASO % 0.6 % (0.0-1.0); EOS # 0.1 10^3/uL (0.0-0.5); EOS % 1.3 % (0.0-3.0); HEMATOCRIT 34.6 % (36.0-47.0); LYMPH # 0.9 10^3/uL (1.5-5.0); LYMPH % 10.5 % (24.0-44.0); MEAN CORPUSCULAR HEMOGLOBIN 28.1 pg (27.0-33.0); MEAN CORPUSCULAR HGB CONC 31.8 g/dl (32.0-36.5); MEAN CORPUSCULAR VOLUME 88.3 fl (80.0-96.0); MONO # 0.6 10^3/uL (0.0-0.8); MONO % 6.5 % (2.0-8.0); NEUTROPHILS # 6.6 10^3/uL (1.5-8.5); NEUTROPHILS % 78.8 % (36.0-66.0); PLATELET COUNT, AUTOMATED 349 10^3/uL (150-450); RED BLOOD COUNT 3.92 10^6/uL (4.00-5.40); WHITE BLOOD COUNT 8.4 10^3/uL (4.0-10.0)
[2022-10-21 09:50] LABS: ALBUMIN 3.7 G/DL (3.2-5.2); ALKALINE PHOSPHATASE 85 U/L (46-116); ALT/SGPT 24 U/L (7.0-40); AST/SGOT 37 U/L (<34); BILIRUBIN,TOTAL 1.1 MG/DL (0.3-1.2); BLOOD UREA NITROGEN 19 MG/DL (9-23); CARBON DIOXIDE LEVEL 28 MMOL/L (20-31); CHLORIDE LEVEL 101 MMOL/L (98-107); CREATININE FOR GFR 0.85 MG/DL (0.55-1.30); GLOMERULAR FILTRATION RATE > 60.0 (>45); GLUCOSE, FASTING 105 MG/DL (74-106); POTASSIUM SERUM 3.6 MMOL/L (3.5-5.1); SODIUM LEVEL 139 MMOL/L (136-145); TOTAL PROTEIN 7.4 G/DL (5.7-8.2)
[2022-10-21] MEDS ORDERED: methylPREDNISolone 125MG 2ML VIAL IV ONE (10:10)
[2022-10-21] MEDS ORDERED: CEPHALEXIN 500 MG CAP PO ONE (10:20)
[2022-10-21] MEDS ORDERED: CEPH500C PO (10:40)
[2022-10-21 10:45] LABS: ERYTHROCYTE SEDIMENTATION RATE 51 mm/hr (0-30)
[2022-10-21 10:48] VITALS: BP 146/89
== END 2022-10-21 10:51 | disposition home or self-care (01) ==
LOC: M ED 08:40
DX: I83.92 Asymptomatic varicose veins of left lower extremity (principal); L03.116 Cellulitis of left lower limb; M06.9 Rheumatoid arthritis, unspecified; Z86.718 Personal history of other venous thrombosis and embolism; M81.0 Age-related osteoporosis without current pathological fracture; K21.9 Gastro-esophageal reflux disease without esophagitis; Z96.653 Presence of artificial knee joint, bilateral; Z79.899 Other long term (current) drug therapy; Z88.5 Allergy status to narcotic agent; Z88.8 Allergy status to other drugs, medicaments and biological substances

== ENCOUNTER → 2022-10-27 | Outpatient (REF) | payer BC ==
[~2022-10-27] MED LIST changes: +CEPH500C PO; +HYDR200T3; +PRED5TA; +VALS160T2
== END ==
LOC: M LAB REF 11:52
PROVIDERS: ATTEND Physician Assistant Medical
DX: M79.605 Pain in left leg (principal)

== ENCOUNTER → 2022-11-24 | Outpatient (CLI) | payer BC ==
[2022-11-24 13:21] LABS: BASO % 0.9 % (0.0-1.0); EOS # 0.1 10^3/uL (0.0-0.5); EOS % 1.8 % (0.0-3.0); HEMOGLOBIN 10.4 g/dl (12.0-15.5); LYMPH # 0.8 10^3/uL (1.5-5.0); LYMPH % 16.7 % (24.0-44.0); MEAN CORPUSCULAR HEMOGLOBIN 27.2 pg (27.0-33.0); MEAN CORPUSCULAR HGB CONC 30.6 g/dl (32.0-36.5); MEAN CORPUSCULAR VOLUME 88.8 fl (80.0-96.0); MONO # 0.4 10^3/uL (0.0-0.8); MONO % 7.8 % (2.0-8.0); NEUTROPHILS # 3.2 10^3/uL (1.5-8.5); NEUTROPHILS % 72.4 % (36.0-66.0); PLATELET COUNT, AUTOMATED 376 10^3/uL (150-450); RED BLOOD COUNT 3.83 10^6/uL (4.00-5.40); WHITE BLOOD COUNT 4.5 10^3/uL (4.0-10.0)
[2022-11-24 13:28] LABS: ERYTHROCYTE SEDIMENTATION RATE 65 mm/hr (0-30)
[2022-11-24 13:44] LABS: ALT/SGPT 23 U/L (7.0-40); AST/SGOT 28 U/L (<34); BLOOD UREA NITROGEN 15 MG/DL (9-23); GLOMERULAR FILTRATION RATE > 60.0 (>45)
== END ==
LOC: M PLALAB 11:15
PROVIDERS: ATTEND Nurse Practitioner
DX: M06.09 Rheumatoid arthritis without rheumatoid factor, multiple sites (principal); Z79.899 Other long term (current) drug therapy

== ENCOUNTER → 2022-11-24 | Outpatient (REF) | payer BC ==
[2022-11-25 10:03] LABS: IRON (FE) 39 UG/DL (50-170); PERCENT SATURATION 11.6 % (13.2-45.0); TOTAL IRON BINDING CAPACITY 337 UG/DL (250-425)
[2022-11-25 10:04] LABS: FERRITIN 14.8 NG/ML (7.3-270.7)
[2022-11-25 10:05] LABS: FOLATE > 24.0 NG/ML (>5.4)
[2022-11-25 10:06] LABS: VITAMIN B12 LEVEL 345 PG/ML (211-911)
== END ==
LOC: M LAB REF 09:44 → M PLALAB 09:44
PROVIDERS: ATTEND Internal Medicine
DX: D50.9 Iron deficiency anemia, unspecified (principal)

== ENCOUNTER → 2023-01-04 | Outpatient (CLI) | payer BC ==
[2023-01-04 16:27] LABS: BASO % 0.6 % (0.0-1.0); EOS # 0.1 10^3/uL (0.0-0.5); EOS % 1.7 % (0.0-3.0); HEMATOCRIT 37.4 % (36.0-47.0); HEMOGLOBIN 11.5 g/dl (12.0-15.5); LYMPH # 1.7 10^3/uL (1.5-5.0); LYMPH % 26.3 % (24.0-44.0); MEAN CORPUSCULAR HEMOGLOBIN 27.1 pg (27.0-33.0); MEAN CORPUSCULAR HGB CONC 30.7 g/dl (32.0-36.5); MONO # 0.5 10^3/uL (0.0-0.8); MONO % 7.9 % (2.0-8.0); PLATELET COUNT, AUTOMATED 357 10^3/uL (150-450); RED BLOOD COUNT 4.25 10^6/uL (4.00-5.40); WHITE BLOOD COUNT 6.4 10^3/uL (4.0-10.0)
[2023-01-04 16:35] LABS: ERYTHROCYTE SEDIMENTATION RATE 57 mm/hr (0-30)
[2023-01-04 16:50] LABS: ALT/SGPT 26 U/L (7.0-40); AST/SGOT 22 U/L (<34); BLOOD UREA NITROGEN 14 MG/DL (9-23); CREATININE FOR GFR 0.79 MG/DL (0.55-1.30); GLOMERULAR FILTRATION RATE > 60.0 (>45)
== END ==
LOC: M LAB 15:49
PROVIDERS: ATTEND Nurse Practitioner
DX: Z79.899 Other long term (current) drug therapy (principal)

== ENCOUNTER → 2023-02-06 | Outpatient (CLI) | payer BC ==
[2023-02-06 12:09] LABS: HEMOGLOBIN 11.6 g/dl (12.0-15.5); MEAN CORPUSCULAR HEMOGLOBIN 28.7 pg (27.0-33.0); MEAN CORPUSCULAR HGB CONC 32.2 g/dl (32.0-36.5); MEAN CORPUSCULAR VOLUME 89.1 fl (80.0-96.0); PLATELET COUNT, AUTOMATED 276 10^3/uL (150-450); RED BLOOD COUNT 4.04 10^6/uL (4.00-5.40); WHITE BLOOD COUNT 5.3 10^3/uL (4.0-10.0)
[2023-02-06 12:42] LABS: FERRITIN 685.3 NG/ML (7.3-270.7)
== END ==
LOC: M LAB 11:45
PROVIDERS: ATTEND Internal Medicine Hematology
DX: D50.9 Iron deficiency anemia, unspecified (principal)

== ENCOUNTER → 2023-03-27 | Outpatient (REF) | payer BC | LOC: M WUC 17:16 | PROVIDERS: ATTEND Student in an Organized Health Care Education/Training Program | DX: R30.0 Dysuria (principal) ==

== ENCOUNTER → 2023-03-30 | Outpatient (CLI) | payer BC ==
[2023-03-30 18:23] LABS: BLOOD UREA NITROGEN 13 MG/DL (9-23); GLOMERULAR FILTRATION RATE > 60.0 (>45)
== END ==
LOC: M LAB 16:51
PROVIDERS: ATTEND Internal Medicine Gastroenterology
DX: D50.9 Iron deficiency anemia, unspecified (principal)

== ENCOUNTER → 2023-03-31 | Outpatient (CLI) | payer BC ==
[~2023-03-31] MED LIST changes: +GLUCAGON INJ 1MG VIAL As Ordered ONE; +ISOVUE-370 76% 100ML VIAL As Ordered ONE; +NEULUMEX 0.1% SUSPENSION 450ML BOTTLE (FORMERLY VOLUMEN) As Ordered ONE
== END ==
LOC: M RAD 12:41
PROVIDERS: ATTEND Internal Medicine Gastroenterology
DX: D50.9 Iron deficiency anemia, unspecified (principal); K44.9 Diaphragmatic hernia without obstruction or gangrene
CPT/HCPCS: 74177; J1610; Q9967

== ENCOUNTER → 2023-05-11 | Outpatient (CLI) | payer BC ==
[~2023-05-11] MED LIST changes: -GLUCAGON INJ 1MG VIAL As Ordered ONE; -HYDR200T3; +HYDR200T46; -ISOVUE-370 76% 100ML VIAL As Ordered ONE; -NEULUMEX 0.1% SUSPENSION 450ML BOTTLE (FORMERLY VOLUMEN) As Ordered ONE
[2023-05-11 14:44] LABS: RED BLOOD COUNT 3.69 10^6/uL (4.00-5.40); WHITE BLOOD COUNT 5.2 10^3/uL (4.0-10.0)
[2023-05-11 14:45] LABS: BASO % 0.6 % (0.0-1.0); EOS # 0.2 10^3/uL (0.0-0.5); EOS % 2.9 % (0.0-3.0); HEMATOCRIT 36.5 % (36.0-47.0); HEMOGLOBIN 12.3 g/dl (12.0-15.5); LYMPH # 1.3 10^3/uL (1.5-5.0); LYMPH % 25.7 % (24.0-44.0); MEAN CORPUSCULAR HEMOGLOBIN 33.3 pg (27.0-33.0); MEAN CORPUSCULAR HGB CONC 33.7 g/dl (32.0-36.5); MEAN CORPUSCULAR VOLUME 98.9 fl (80.0-96.0); MONO # 0.5 10^3/uL (0.0-0.8); MONO % 8.9 % (2.0-8.0); NEUTROPHILS # 3.2 10^3/uL (1.5-8.5); NEUTROPHILS % 61.3 % (36.0-66.0); PLATELET COUNT, AUTOMATED 272 10^3/uL (150-450)
[2023-05-11 15:11] LABS: ALT/SGPT 25 U/L (7.0-40); AST/SGOT 21 U/L (<34); BLOOD UREA NITROGEN 17 MG/DL (9-23); CREATININE FOR GFR 0.74 MG/DL (0.55-1.30); GLOMERULAR FILTRATION RATE > 60.0 (>45)
[2023-05-11 15:36] LABS: ERYTHROCYTE SEDIMENTATION RATE 40 mm/hr (0-30)
== END ==
LOC: M WUC 12:16
PROVIDERS: ATTEND Nurse Practitioner
DX: Z79.899 Other long term (current) drug therapy (principal)

== ENCOUNTER → 2023-05-11 | Outpatient (CLI) | payer BC ==
[2023-05-11 14:46] LABS: BASO % 0.6 % (0.0-1.0); EOS # 0.2 10^3/uL (0.0-0.5); EOS % 3.2 % (0.0-3.0); HEMOGLOBIN 12.5 g/dl (12.0-15.5); LYMPH # 1.3 10^3/uL (1.5-5.0); LYMPH % 26.1 % (24.0-44.0); MEAN CORPUSCULAR HEMOGLOBIN 33.4 pg (27.0-33.0); MEAN CORPUSCULAR HGB CONC 33.8 g/dl (32.0-36.5); MEAN CORPUSCULAR VOLUME 98.9 fl (80.0-96.0); MONO # 0.4 10^3/uL (0.0-0.8); MONO % 8.8 % (2.0-8.0); NEUTROPHILS % 60.7 % (36.0-66.0); PLATELET COUNT, AUTOMATED 269 10^3/uL (150-450); RED BLOOD COUNT 3.74 10^6/uL (4.00-5.40)
[2023-05-11 15:09] LABS: PERCENT SATURATION 37.3 % (13.2-45.0)
== END ==
LOC: M WUC 12:12
PROVIDERS: ATTEND Internal Medicine Hematology
DX: D50.9 Iron deficiency anemia, unspecified (principal)

== ENCOUNTER → 2023-08-07 | Outpatient (CLI) | payer BC ==
[2023-08-07 12:56] LABS: BASO % 0.5 % (0.0-1.0); EOS # 0.2 10^3/uL (0.0-0.5); HEMATOCRIT 38.3 % (36.0-47.0); HEMOGLOBIN 12.8 g/dl (12.0-15.5); LYMPH % 18.5 % (24.0-44.0); MEAN CORPUSCULAR HEMOGLOBIN 32.9 pg (27.0-33.0); MEAN CORPUSCULAR HGB CONC 33.4 g/dl (32.0-36.5); MEAN CORPUSCULAR VOLUME 98.5 fl (80.0-96.0); MONO # 0.4 10^3/uL (0.0-0.8); MONO % 7.5 % (2.0-8.0); NEUTROPHILS # 3.9 10^3/uL (1.5-8.5); NEUTROPHILS % 70.1 % (36.0-66.0); PLATELET COUNT, AUTOMATED 240 10^3/uL (150-450); RED BLOOD COUNT 3.89 10^6/uL (4.00-5.40); WHITE BLOOD COUNT 5.6 10^3/uL (4.0-10.0)
[2023-08-07 13:26] LABS: IRON (FE) 75 UG/DL (50-170); PERCENT SATURATION 29.5 % (13.2-45.0); TOTAL IRON BINDING CAPACITY 254 UG/DL (250-425)
[2023-08-07 13:28] LABS: FOLATE > 24.00 NG/ML (>5.4); TOTAL 25(OH) VITAMIN D 110.4 NG/ML (20.0-100.0)
[2023-08-07 13:29] LABS: VITAMIN B12 LEVEL 357 PG/ML (211-911)
== END ==
LOC: M LAB 12:25
PROVIDERS: ATTEND Internal Medicine Hematology
DX: E55.9 Vitamin D deficiency, unspecified (principal)

== ENCOUNTER → 2023-08-07 | Outpatient (CLI) | payer BC ==
[2023-08-07 12:56] LABS: BASO % 0.5 % (0.0-1.0); EOS # 0.2 10^3/uL (0.0-0.5); EOS % 3.1 % (0.0-3.0); HEMATOCRIT 38.9 % (36.0-47.0); HEMOGLOBIN 12.5 g/dl (12.0-15.5); LYMPH # 1.1 10^3/uL (1.5-5.0); LYMPH % 19.9 % (24.0-44.0); MEAN CORPUSCULAR HEMOGLOBIN 31.7 pg (27.0-33.0); MEAN CORPUSCULAR HGB CONC 32.1 g/dl (32.0-36.5); MEAN CORPUSCULAR VOLUME 98.7 fl (80.0-96.0); MONO # 0.4 10^3/uL (0.0-0.8); MONO % 7.5 % (2.0-8.0); NEUTROPHILS # 3.8 10^3/uL (1.5-8.5); NEUTROPHILS % 68.8 % (36.0-66.0); PLATELET COUNT, AUTOMATED 238 10^3/uL (150-450); RED BLOOD COUNT 3.94 10^6/uL (4.00-5.40); WHITE BLOOD COUNT 5.6 10^3/uL (4.0-10.0)
[2023-08-07 13:05] LABS: ERYTHROCYTE SEDIMENTATION RATE 37 mm/hr (0-30)
[2023-08-07 13:24] LABS: ALT/SGPT 25 U/L (7.0-40); AST/SGOT 19 U/L (<34); BLOOD UREA NITROGEN 21 MG/DL (9-23); CREATININE FOR GFR 0.78 MG/DL (0.55-1.30); GLOMERULAR FILTRATION RATE > 60.0 (>45)
== END ==
LOC: M LAB 12:28
PROVIDERS: ATTEND Nurse Practitioner
DX: Z79.899 Other long term (current) drug therapy (principal)

== ENCOUNTER → 2023-11-25 | Outpatient (CLI) | payer BC ==
[2023-11-25 18:46] LABS: BASO % 0.6 % (0.0-1.0); EOS # 0.1 10^3/uL (0.0-0.5); EOS % 1.9 % (0.0-3.0); HEMATOCRIT 37.5 % (36.0-47.0); HEMOGLOBIN 12.2 g/dl (12.0-15.5); LYMPH # 1.1 10^3/uL (1.5-5.0); LYMPH % 15.9 % (24.0-44.0); MEAN CORPUSCULAR HEMOGLOBIN 30.9 pg (27.0-33.0); MEAN CORPUSCULAR HGB CONC 32.5 g/dl (32.0-36.5); MEAN CORPUSCULAR VOLUME 94.9 fl (80.0-96.0); MONO # 0.4 10^3/uL (0.0-0.8); MONO % 5.9 % (2.0-8.0); NEUTROPHILS # 5.1 10^3/uL (1.5-8.5); NEUTROPHILS % 75.3 % (36.0-66.0); PLATELET COUNT, AUTOMATED 337 10^3/uL (150-450); RED BLOOD COUNT 3.95 10^6/uL (4.00-5.40); WHITE BLOOD COUNT 6.8 10^3/uL (4.0-10.0)
[2023-11-25 19:04] LABS: ALT/SGPT 21 U/L (7.0-40); AST/SGOT 16 U/L (<34); BLOOD UREA NITROGEN 14 MG/DL (9-23); CREATININE FOR GFR 0.67 MG/DL (0.55-1.30); GLOMERULAR FILTRATION RATE > 60.0 (>45)
[2023-11-25 19:06] LABS: ERYTHROCYTE SEDIMENTATION RATE 51 mm/hr (0-30)
== END ==
LOC: M WUC 13:54
PROVIDERS: ATTEND Nurse Practitioner
DX: Z79.899 Other long term (current) drug therapy (principal)

== ENCOUNTER → 2023-11-25 | Outpatient (CLI) | payer BC ==
[2023-11-25 18:41] LABS: HEMATOCRIT 37.8 % (36.0-47.0); HEMOGLOBIN 12.2 g/dl (12.0-15.5); MEAN CORPUSCULAR HEMOGLOBIN 30.7 pg (27.0-33.0); MEAN CORPUSCULAR HGB CONC 32.3 g/dl (32.0-36.5); PLATELET COUNT, AUTOMATED 329 10^3/uL (150-450); RED BLOOD COUNT 3.98 10^6/uL (4.00-5.40); WHITE BLOOD COUNT 6.8 10^3/uL (4.0-10.0)
[2023-11-25 19:06] LABS: ALBUMIN 3.8 G/DL (3.2-5.2); ALKALINE PHOSPHATASE 72 U/L (46-116); ALT/SGPT 22 U/L (7.0-40); AST/SGOT 16 U/L (<34); BILIRUBIN,TOTAL 0.8 MG/DL (0.3-1.2); BLOOD UREA NITROGEN 14 MG/DL (9-23); CALCIUM LEVEL 8.9 MG/DL (8.3-10.6); CARBON DIOXIDE LEVEL 28 MMOL/L (20-31); CHLORIDE LEVEL 105 MMOL/L (98-107); CHOLESTEROL LEVEL 178 MG/DL (<200); CHOLESTEROL RISK RATIO 3.29 (<5); CREATININE FOR GFR 0.67 MG/DL (0.55-1.30); GLOMERULAR FILTRATION RATE > 60.0 (>45); GLUCOSE, FASTING 97 MG/DL (74-106); IRON (FE) 47 UG/DL (50-170); LDL CHOLESTEROL 103.8 MG/DL (<100); PERCENT SATURATION 15.3 % (13.2-45.0); POTASSIUM SERUM 3.4 MMOL/L (3.5-5.1); SODIUM LEVEL 138 MMOL/L (136-145); TOTAL IRON BINDING CAPACITY 308 UG/DL (250-425); TOTAL PROTEIN 7.1 G/DL (5.7-8.2); TRIGLYCERIDES LEVEL 101 MG/DL (<150)
[2023-11-25 19:07] LABS: FERRITIN 33.7 NG/ML (7.3-270.7); FREE T4 1.14 NG/DL (0.89-1.76); THYROID STIMULATING HORMONE 2.064 uIU/ML (0.55-4.78)
[2023-11-25 19:08] LABS: TOTAL 25(OH) VITAMIN D 99.5 NG/ML (20.0-100.0)
[2023-11-25 19:09] LABS: HEMOGLOBIN A1c 5.3 % (4.0-6.0); VITAMIN B12 LEVEL 242 PG/ML (211-911)
[2023-11-25 19:13] LABS: CREATININE, URINE 243.4 MG/DL
== END ==
LOC: M WUC 13:58
PROVIDERS: ATTEND Internal Medicine Hematology
DX: D50.9 Iron deficiency anemia, unspecified (principal); I10 Essential (primary) hypertension

== ENCOUNTER 2023-12-05 15:38 | Outpatient (CLI) | payer BC ==
[~2023-12-05 15:38] MED LIST changes: +ALBUTEROL SULFATE 2.5MG/0.5ML INH NEB SOLN INH PRN; +EPINEPHrine INJ 1 MG/ML 1ML AMP IM PRN; +NS 1,000 ML IV SCH; +diphenhydrAMINE 50MG/ML VIAL IV PRN; +methylPREDNISolone 125MG 2ML VIAL IV PRN
[2023-12-05 15:40] VITALS: BP 138/70; O2SAT 97
[2023-12-05] MEDS ORDERED: IRON SUCROSE 200 MG in NS 100 ML IV ONE (16:00)
[2023-12-05 17:10] VITALS: BP 112/55; O2SAT 100
== END 2023-12-05 17:10 | disposition home or self-care (01) ==
LOC: M INFU 15:38
PROVIDERS: ATTEND Internal Medicine Hematology
DX: D50.9 Iron deficiency anemia, unspecified (principal)
CPT/HCPCS: 96365; J1756

== ENCOUNTER 2023-12-12 15:50 | Outpatient (CLI) | payer BC ==
[~2023-12-12 15:50] MED LIST changes: -NS 1,000 ML IV SCH
[2023-12-12] MEDS ORDERED: NS 1,000 ML IV SCH (16:00)
[2023-12-12] MEDS ORDERED: IRON SUCROSE 200 MG in NS 100 ML OVER 1 HR IV ONE (16:00)
[2023-12-12 16:10] VITALS: BP 140/80; O2SAT 98
[2023-12-12 17:08] VITALS: BP 124/72; O2SAT 98
== END 2023-12-12 17:09 ==
LOC: M INFU 15:50
PROVIDERS: ATTEND Internal Medicine Hematology
DX: D50.9 Iron deficiency anemia, unspecified (principal); Z88.5 Allergy status to narcotic agent; Z88.8 Allergy status to other drugs, medicaments and biological substances
CPT/HCPCS: 96365; J1756

== ENCOUNTER → 2023-12-30 | Outpatient (REF) | payer BC ==
[~2023-12-30] MED LIST changes: -ALBUTEROL SULFATE 2.5MG/0.5ML INH NEB SOLN INH PRN; -EPINEPHrine INJ 1 MG/ML 1ML AMP IM PRN; -diphenhydrAMINE 50MG/ML VIAL IV PRN; -methylPREDNISolone 125MG 2ML VIAL IV PRN
== END ==
LOC: M SFHCWAGY 09:49
PROVIDERS: ATTEND Nurse Practitioner Family
DX: Z12.4 Encounter for screening for malignant neoplasm of cervix (principal); N95.2 Postmenopausal atrophic vaginitis
CPT/HCPCS: 87624; G0123

== ENCOUNTER → 2024-02-14 | Outpatient (CLI) | payer BC ==
[2024-02-14 17:58] LABS: BASO # 0.1 10^3/uL (0.0-0.2); BASO % 0.6 % (0.0-1.0); EOS # 0.2 10^3/uL (0.0-0.5); EOS % 1.9 % (0.0-3.0); HEMATOCRIT 35.9 % (36.0-47.0); HEMOGLOBIN 11.8 g/dl (12.0-15.5); LYMPH # 1.1 10^3/uL (1.5-5.0); LYMPH % 14.2 % (24.0-44.0); MEAN CORPUSCULAR HEMOGLOBIN 31.2 pg (27.0-33.0); MEAN CORPUSCULAR HGB CONC 32.9 g/dl (32.0-36.5); MONO # 0.6 10^3/uL (0.0-0.8); MONO % 7.4 % (2.0-8.0); NEUTROPHILS # 5.9 10^3/uL (1.5-8.5); NEUTROPHILS % 75.4 % (36.0-66.0); PLATELET COUNT, AUTOMATED 316 10^3/uL (150-450); RED BLOOD COUNT 3.78 10^6/uL (4.00-5.40); WHITE BLOOD COUNT 7.8 10^3/uL (4.0-10.0)
[2024-02-14 18:17] LABS: ALT/SGPT 24 U/L (7.0-40); AST/SGOT 19 U/L (<34); BLOOD UREA NITROGEN 17 MG/DL (9-23); CREATININE FOR GFR 0.66 MG/DL (0.55-1.30); GLOMERULAR FILTRATION RATE > 60.0 (>45)
[2024-02-14 19:12] LABS: ERYTHROCYTE SEDIMENTATION RATE 37 mm/hr (0-30)
== END ==
LOC: M LAB 17:18
PROVIDERS: ATTEND Nurse Practitioner
DX: Z79.899 Other long term (current) drug therapy (principal)

== ENCOUNTER → 2024-03-26 | Outpatient (CLI) | payer BC | LOC: M PLAIMG 10:21 | PROVIDERS: ATTEND Nurse Practitioner Family | DX: R92.0 Mammographic microcalcification found on diagnostic imaging of breast (principal); Z12.39 Encounter for other screening for malignant neoplasm of breast; R92.30 Dense breasts, unspecified; Z53.09 Procedure and treatment not carried out because of other contraindication ==

== ENCOUNTER → 2024-05-21 | Outpatient (CLI) | payer BC ==
[2024-05-21 11:49] LABS: BASO # 0.1 10^3/uL (0.0-0.2); BASO % 0.8 % (0.0-1.0); EOS # 0.2 10^3/uL (0.0-0.5); EOS % 3.4 % (0.0-3.0); HEMATOCRIT 35.5 % (36.0-47.0); HEMOGLOBIN 11.4 g/dl (12.0-15.5); LYMPH # 1.6 10^3/uL (1.5-5.0); LYMPH % 26.6 % (24.0-44.0); MEAN CORPUSCULAR HEMOGLOBIN 31.2 pg (27.0-33.0); MEAN CORPUSCULAR HGB CONC 32.1 g/dl (32.0-36.5); MEAN CORPUSCULAR VOLUME 97.3 fl (80.0-96.0); MONO # 0.6 10^3/uL (0.0-0.8); MONO % 9.4 % (2.0-8.0); NEUTROPHILS # 3.5 10^3/uL (1.5-8.5); NEUTROPHILS % 59.3 % (36.0-66.0); PLATELET COUNT, AUTOMATED 319 10^3/uL (150-450); RED BLOOD COUNT 3.65 10^6/uL (4.00-5.40); WHITE BLOOD COUNT 5.9 10^3/uL (4.0-10.0)
[2024-05-21 12:04] LABS: MAU/CREAT RATIO 2.2 MCG/MG (0.0-30.0)
[2024-05-21 12:09] LABS: ALBUMIN 3.6 G/DL (3.2-5.2); ALKALINE PHOSPHATASE 79 U/L (46-116); ALT/SGPT 19 U/L (7.0-40); AST/SGOT 16 U/L (<34); BILIRUBIN,TOTAL 0.9 MG/DL (0.3-1.2); BLOOD UREA NITROGEN 21 MG/DL (9-23); CARBON DIOXIDE LEVEL 28 MMOL/L (20-31); CHLORIDE LEVEL 106 MMOL/L (98-107); CHOLESTEROL LEVEL 160 MG/DL (<200); CHOLESTEROL RISK RATIO 3.62 (<5); CREATININE FOR GFR 0.73 MG/DL (0.55-1.30); FERRITIN 39.3 NG/ML (7.3-270.7); FREE T4 1.13 NG/DL (0.89-1.76); GLOMERULAR FILTRATION RATE > 60.0 (>45); GLUCOSE, FASTING 89 MG/DL (74-106); HDL CHOLESTEROL 44.1 MG/DL (>40); IRON (FE) 65 UG/DL (50-170); LDL CHOLESTEROL 89.5 MG/DL (<100); NON-HDL-C 115.9 MG/DL; POTASSIUM SERUM 3.3 MMOL/L (3.5-5.1); SODIUM LEVEL 142 MMOL/L (136-145); THYROID STIMULATING HORMONE 2.703 uIU/ML (0.55-4.78); TOTAL 25(OH) VITAMIN D 74.9 NG/ML (20.0-100.0); TOTAL PROTEIN 6.6 G/DL (5.7-8.2); TRIGLYCERIDES LEVEL 132 MG/DL (<150)
[2024-05-21 12:10] LABS: VITAMIN B12 LEVEL 203 PG/ML (211-911)
[2024-05-21 12:25] LABS: HEMOGLOBIN A1c 5.2 % (4.0-6.0)
== END ==
LOC: M PLALAB 08:39
PROVIDERS: ATTEND Internal Medicine Hematology
DX: D50.9 Iron deficiency anemia, unspecified (principal); I10 Essential (primary) hypertension

== ENCOUNTER → 2024-05-21 | Outpatient (CLI) | payer BC ==
[2024-05-21 11:49] LABS: BASO % 0.5 % (0.0-1.0); EOS # 0.2 10^3/uL (0.0-0.5); EOS % 3.5 % (0.0-3.0); HEMATOCRIT 35.5 % (36.0-47.0); HEMOGLOBIN 11.5 g/dl (12.0-15.5); LYMPH # 1.7 10^3/uL (1.5-5.0); LYMPH % 27.8 % (24.0-44.0); MEAN CORPUSCULAR HEMOGLOBIN 31.6 pg (27.0-33.0); MEAN CORPUSCULAR HGB CONC 32.4 g/dl (32.0-36.5); MEAN CORPUSCULAR VOLUME 97.5 fl (80.0-96.0); MONO # 0.5 10^3/uL (0.0-0.8); NEUTROPHILS # 3.5 10^3/uL (1.5-8.5); NEUTROPHILS % 58.7 % (36.0-66.0); PLATELET COUNT, AUTOMATED 304 10^3/uL (150-450); RED BLOOD COUNT 3.64 10^6/uL (4.00-5.40)
[2024-05-21 11:58] LABS: ERYTHROCYTE SEDIMENTATION RATE 37 mm/hr (0-30)
[2024-05-21 12:05] LABS: ALT/SGPT 20 U/L (7.0-40); AST/SGOT 17 U/L (<34); BLOOD UREA NITROGEN 21 MG/DL (9-23); CREATININE FOR GFR 0.73 MG/DL (0.55-1.30); GLOMERULAR FILTRATION RATE > 60.0 (>45)
== END ==
LOC: M PLALAB 08:36
PROVIDERS: ATTEND Nurse Practitioner
DX: M06.09 Rheumatoid arthritis without rheumatoid factor, multiple sites (principal); Z79.899 Other long term (current) drug therapy; Z79.52 Long term (current) use of systemic steroids

== ENCOUNTER → 2024-08-14 | Outpatient (CLI) | payer BC ==
[2024-08-14 16:41] LABS: BASO % 0.3 % (0.0-1.0); EOS # 0.1 10^3/uL (0.0-0.5); EOS % 1.5 % (0.0-3.0); HEMATOCRIT 36.4 % (36.0-47.0); HEMOGLOBIN 11.6 g/dl (12.0-15.5); LYMPH # 2.4 10^3/uL (1.5-5.0); LYMPH % 30.5 % (24.0-44.0); MEAN CORPUSCULAR HEMOGLOBIN 30.7 pg (27.0-33.0); MEAN CORPUSCULAR HGB CONC 31.9 g/dl (32.0-36.5); MEAN CORPUSCULAR VOLUME 96.3 fl (80.0-96.0); MONO # 0.6 10^3/uL (0.0-0.8); MONO % 7.6 % (2.0-8.0); NEUTROPHILS # 4.7 10^3/uL (1.5-8.5); NEUTROPHILS % 58.7 % (36.0-66.0); PLATELET COUNT, AUTOMATED 345 10^3/uL (150-450); RED BLOOD COUNT 3.78 10^6/uL (4.00-5.40); WHITE BLOOD COUNT 7.9 10^3/uL (4.0-10.0)
[2024-08-14 17:09] LABS: FERRITIN 37.9 NG/ML (7.3-270.7)
== END ==
LOC: M WUC 12:03
PROVIDERS: ATTEND Internal Medicine Hematology
DX: D50.9 Iron deficiency anemia, unspecified (principal); I10 Essential (primary) hypertension

== ENCOUNTER → 2024-08-14 | Outpatient (CLI) | payer BC ==
[2024-08-14 16:41] LABS: BASO % 0.5 % (0.0-1.0); EOS # 0.1 10^3/uL (0.0-0.5); EOS % 1.3 % (0.0-3.0); HEMOGLOBIN 11.6 g/dl (12.0-15.5); LYMPH # 2.4 10^3/uL (1.5-5.0); LYMPH % 30.2 % (24.0-44.0); MEAN CORPUSCULAR HEMOGLOBIN 30.8 pg (27.0-33.0); MEAN CORPUSCULAR HGB CONC 32.2 g/dl (32.0-36.5); MEAN CORPUSCULAR VOLUME 95.5 fl (80.0-96.0); MONO # 0.6 10^3/uL (0.0-0.8); MONO % 7.6 % (2.0-8.0); NEUTROPHILS # 4.6 10^3/uL (1.5-8.5); NEUTROPHILS % 59.1 % (36.0-66.0); PLATELET COUNT, AUTOMATED 344 10^3/uL (150-450); RED BLOOD COUNT 3.77 10^6/uL (4.00-5.40); WHITE BLOOD COUNT 7.8 10^3/uL (4.0-10.0)
[2024-08-14 16:47] LABS: ERYTHROCYTE SEDIMENTATION RATE 30 mm/hr (0-30)
[2024-08-14 17:06] LABS: ALT/SGPT 20 U/L (7.0-40); AST/SGOT 11 U/L (<34); BLOOD UREA NITROGEN 17 MG/DL (9-23); CREATININE FOR GFR 0.65 MG/DL (0.55-1.30); GLOMERULAR FILTRATION RATE > 60.0 (>45)
== END ==
LOC: M WUC 12:01
PROVIDERS: ATTEND Nurse Practitioner
DX: Z79.899 Other long term (current) drug therapy (principal)

== ENCOUNTER → 2024-11-06 | Outpatient (CLI) | payer BC ==
[2024-11-06 16:21] LABS: BASO % 0.9 % (0.0-1.0); EOS # 0.1 10^3/uL (0.0-0.5); EOS % 3.1 % (0.0-3.0); HEMATOCRIT 34.5 % (36.0-47.0); HEMOGLOBIN 11.2 g/dl (12.0-15.5); LYMPH # 1.2 10^3/uL (1.5-5.0); LYMPH % 26.1 % (24.0-44.0); MEAN CORPUSCULAR HEMOGLOBIN 31.1 pg (27.0-33.0); MEAN CORPUSCULAR HGB CONC 32.5 g/dl (32.0-36.5); MEAN CORPUSCULAR VOLUME 95.8 fl (80.0-96.0); MONO # 0.3 10^3/uL (0.0-0.8); MONO % 7.5 % (2.0-8.0); NEUTROPHILS # 2.8 10^3/uL (1.5-8.5); NEUTROPHILS % 61.7 % (36.0-66.0); PLATELET COUNT, AUTOMATED 354 10^3/uL (150-450); WHITE BLOOD COUNT 4.6 10^3/uL (4.0-10.0)
[2024-11-06 16:22] LABS: BASO % 0.7 % (0.0-1.0); EOS # 0.1 10^3/uL (0.0-0.5); EOS % 2.8 % (0.0-3.0); HEMATOCRIT 34.2 % (36.0-47.0); HEMOGLOBIN 11.2 g/dl (12.0-15.5); LYMPH # 1.2 10^3/uL (1.5-5.0); LYMPH % 26.5 % (24.0-44.0); MEAN CORPUSCULAR HGB CONC 32.7 g/dl (32.0-36.5); MEAN CORPUSCULAR VOLUME 94.7 fl (80.0-96.0); MONO # 0.4 10^3/uL (0.0-0.8); MONO % 8.5 % (2.0-8.0); NEUTROPHILS # 2.8 10^3/uL (1.5-8.5); NEUTROPHILS % 60.6 % (36.0-66.0); PLATELET COUNT, AUTOMATED 338 10^3/uL (150-450); RED BLOOD COUNT 3.61 10^6/uL (4.00-5.40); WHITE BLOOD COUNT 4.6 10^3/uL (4.0-10.0)
[2024-11-06 16:28] LABS: ALT/SGPT 26 U/L (7.0-40); AST/SGOT 26 U/L (<34); BLOOD UREA NITROGEN 13 MG/DL (9-23); C REACTIVE PROTEIN QUANTITATIV 0.79 MG/DL (<1.0); CREATININE FOR GFR 0.66 MG/DL (0.55-1.30); ERYTHROCYTE SEDIMENTATION RATE 40 mm/hr (0-30); GLOMERULAR FILTRATION RATE > 60.0 (>45)
[2024-11-06 16:31] LABS: C REACTIVE PROTEIN QUANTITATIV 0.77 MG/DL (<1.0); FERRITIN 18.5 NG/ML (7.3-270.7)
[2024-11-06 16:32] LABS: ALBUMIN 3.6 G/DL (3.2-5.2); ALKALINE PHOSPHATASE 83 U/L (35-104); ALT/SGPT 25 U/L (7.0-40); AST/SGOT 26 U/L (<34); BILIRUBIN,TOTAL 0.7 MG/DL (0.3-1.2); BLOOD UREA NITROGEN 13 MG/DL (9-23); CALCIUM LEVEL 9.2 MG/DL (8.3-10.6); CARBON DIOXIDE LEVEL 28 MMOL/L (20-31); CHLORIDE LEVEL 106 MMOL/L (98-107); CHOLESTEROL LEVEL 180 MG/DL (<200); CHOLESTEROL RISK RATIO 3.24 (<5); CREATININE FOR GFR 0.67 MG/DL (0.55-1.30); GLOMERULAR FILTRATION RATE > 60.0 (>45); GLUCOSE, FASTING 89 MG/DL (74-106); HDL CHOLESTEROL 55.5 MG/DL (>40); IRON (FE) 43 UG/DL (50-170); LDL CHOLESTEROL 106.1 MG/DL (<100); NON-HDL-C 124.5 MG/DL; PERCENT SATURATION 14.5 % (13.2-45.0); POTASSIUM SERUM 3.4 MMOL/L (3.5-5.1); SODIUM LEVEL 143 MMOL/L (136-145); THYROID STIMULATING HORMONE 2.848 uIU/ML (0.55-4.78); TOTAL 25(OH) VITAMIN D 79.5 NG/ML (20.0-100.0); TOTAL IRON BINDING CAPACITY 296 UG/DL (250-425); TOTAL PROTEIN 6.8 G/DL (5.7-8.2); TRIGLYCERIDES LEVEL 92 MG/DL (<150)
[2024-11-06 16:33] LABS: FREE T4 1.29 NG/DL (0.89-1.76)
[2024-11-06 16:34] LABS: VITAMIN B12 LEVEL 1041 PG/ML (211-911)
[2024-11-06 16:46] LABS: HEMOGLOBIN A1c 4.9 % (4.0-6.0)
[2024-11-06 17:09] LABS: CREATININE, URINE 255.6 MG/DL; MAU/CREAT RATIO 2.3 MCG/MG (0.0-30.0)
== END ==
LOC: M WUC 12:17
PROVIDERS: ATTEND Nurse Practitioner
DX: M06.09 Rheumatoid arthritis without rheumatoid factor, multiple sites (principal); Z79.899 Other long term (current) drug therapy

== ENCOUNTER 2024-12-31 10:11 | Outpatient (CLI) | payer BC ==
[~2024-12-31] VITALS: Ht 162.6 cm; Wt 111.3 kg
[~2024-12-31 10:11] MED LIST changes: +ALBUTEROL SULFATE 2.5MG/0.5ML INH NEB SOLN INH PRN; +EPINEPHrine INJ 1 MG/ML 1ML AMP IM PRN; +diphenhydrAMINE 50MG/ML VIAL IV PRN; +methylPREDNISolone 125MG 2ML VIAL IV PRN
[2024-12-31 10:15] VITALS: BP 129/62; O2SAT 99
[2024-12-31] MEDS: IRON SUCROSE 300 MG in NS 250 ML OVER 90 MIN. IV ONE (10:41)
[2024-12-31 12:30] VITALS: BP 129/82; O2SAT 100
== END 2024-12-31 12:30 ==
LOC: M INFU 10:11
PROVIDERS: ATTEND Internal Medicine Hematology
DX: D50.9 Iron deficiency anemia, unspecified (principal); Z88.5 Allergy status to narcotic agent; Z88.8 Allergy status to other drugs, medicaments and biological substances
CPT/HCPCS: 96365; 96366; J1756

== ENCOUNTER 2025-01-14 10:50 | Outpatient (CLI) | payer BC ==
[~2025-01-14] VITALS: Ht 162.6 cm; Wt 108.0 kg
[2025-01-14] MEDS: IRON SUCROSE 300 MG in NS 250 ML OVER 90 MIN. IV ONE (11:10)
[2025-01-14 12:55] VITALS: BP 108/55; O2SAT 98
== END 2025-01-14 12:55 ==
LOC: M INFU 10:50
PROVIDERS: ATTEND Internal Medicine Hematology
DX: D50.9 Iron deficiency anemia, unspecified (principal); Z88.5 Allergy status to narcotic agent; Z88.8 Allergy status to other drugs, medicaments and biological substances
CPT/HCPCS: 96365; 96366; J1756

== ENCOUNTER → 2025-02-05 | Outpatient (CLI) | payer BC ==
[~2025-02-05] MED LIST changes: -ALBUTEROL SULFATE 2.5MG/0.5ML INH NEB SOLN INH PRN; -EPINEPHrine INJ 1 MG/ML 1ML AMP IM PRN; -diphenhydrAMINE 50MG/ML VIAL IV PRN; -methylPREDNISolone 125MG 2ML VIAL IV PRN
[2025-02-05 18:07] LABS: BASO % 0.5 % (0.0-1.0); EOS # 0.1 10^3/uL (0.0-0.5); EOS % 1.2 % (0.0-3.0); HEMATOCRIT 34.5 % (36.0-47.0); HEMOGLOBIN 11.1 g/dl (12.0-15.5); LYMPH % 14.2 % (24.0-44.0); MEAN CORPUSCULAR HEMOGLOBIN 30.8 pg (27.0-33.0); MEAN CORPUSCULAR HGB CONC 32.2 g/dl (32.0-36.5); MEAN CORPUSCULAR VOLUME 95.8 fl (80.0-96.0); MONO # 0.4 10^3/uL (0.0-0.8); MONO % 5.3 % (2.0-8.0); NEUTROPHILS # 5.7 10^3/uL (1.5-8.5); NEUTROPHILS % 78.3 % (36.0-66.0); PLATELET COUNT, AUTOMATED 333 10^3/uL (150-450); WHITE BLOOD COUNT 7.3 10^3/uL (4.0-10.0)
[2025-02-05 18:08] LABS: C REACTIVE PROTEIN QUANTITATIV 0.92 MG/DL (<1.0)
[2025-02-05 18:10] LABS: ALT/SGPT 21 U/L (7.0-40); AST/SGOT 17 U/L (<34); BLOOD UREA NITROGEN 14 MG/DL (9-23); CREATININE FOR GFR 0.67 MG/DL (0.55-1.30); GLOMERULAR FILTRATION RATE > 60.0 (>45)
[2025-02-05 18:13] LABS: ERYTHROCYTE SEDIMENTATION RATE 38 mm/hr (0-30)
== END ==
LOC: M WUC 14:17
PROVIDERS: ATTEND Nurse Practitioner
DX: M06.09 Rheumatoid arthritis without rheumatoid factor, multiple sites (principal); Z79.899 Other long term (current) drug therapy

== ENCOUNTER → 2025-05-14 | Outpatient (CLI) | payer BC ==
[~2025-05-14] MED LIST changes: +B-12100021 PO; +CALC500C16 PO; +PRED-1142 PO; -PRED1TABL PO; +PROBCAP14 PO
[2025-05-14 13:19] LABS: BASO # 0.0 10^3/uL (0.0-0.2); BASO % 0.8 % (0.0-1.0); EOS # 0.2 10^3/uL (0.0-0.5); EOS % 3.8 % (0.0-3.0); LYMPH # 1.4 10^3/uL (1.5-5.0); LYMPH % 29.1 % (24.0-44.0); MONO # 0.4 10^3/uL (0.0-0.8); MONO % 8.8 % (2.0-8.0); NEUTROPHILS # 2.7 10^3/uL (1.5-8.5); NEUTROPHILS % 56.4 % (36.0-66.0); PLATELET COUNT, AUTOMATED 266 10^3/uL (150-450)
[2025-05-14 13:34] LABS: ERYTHROCYTE SEDIMENTATION RATE 29 mm/hr (0-30)
[2025-05-14 13:45] LABS: ALT/SGPT 22 U/L (7.0-40); AST/SGOT 21 U/L (<34); C REACTIVE PROTEIN QUANTITATIV 0.68 MG/DL (<1.0); CREATININE FOR GFR 0.64 MG/DL (0.55-1.30); GLOMERULAR FILTRATION RATE > 90.0 (>45)
== END ==
LOC: M WUC 10:20
PROVIDERS: ATTEND Nurse Practitioner
DX: Z79.899 Other long term (current) drug therapy (principal)

== ENCOUNTER → 2025-05-14 | Outpatient (CLI) | payer BC ==
[~2025-05-14] MED LIST changes: +PHOS1TAB3 PO
[2025-05-14 13:21] LABS: BASO # 0.0 10^3/uL (0.0-0.2); BASO % 0.7 % (0.0-1.0); EOS # 0.2 10^3/uL (0.0-0.5); EOS % 3.6 % (0.0-3.0); LYMPH # 1.3 10^3/uL (1.5-5.0); LYMPH % 28.0 % (24.0-44.0); MONO # 0.5 10^3/uL (0.0-0.8); MONO % 10.1 % (2.0-8.0); NEUTROPHILS # 2.5 10^3/uL (1.5-8.5); NEUTROPHILS % 56.7 % (36.0-66.0); PLATELET COUNT, AUTOMATED 274 10^3/uL (150-450)
[2025-05-14 13:45] LABS: ALT/SGPT 23 U/L (7.0-40); AST/SGOT 22 U/L (<34); CALCIUM LEVEL 9.2 MG/DL (8.3-10.6); CARBON DIOXIDE LEVEL 26 MMOL/L (20-31); CHLORIDE LEVEL 108 MMOL/L (98-107); CHOLESTEROL LEVEL 177 MG/DL (<200); CHOLESTEROL RISK RATIO 3.75 (<5); CREATININE FOR GFR 0.62 MG/DL (0.55-1.30); GLOMERULAR FILTRATION RATE > 90.0 (>45); IRON (FE) 111 UG/DL (50-170); LDL CHOLESTEROL 109.8 MG/DL (<100); NON-HDL-C 129.8 MG/DL; PERCENT SATURATION 43.2 % (13.2-45.0); POTASSIUM SERUM 3.4 MMOL/L (3.5-5.1); SODIUM LEVEL 149 MMOL/L (136-145); TRIGLYCERIDES LEVEL 100 MG/DL (<150)
[2025-05-14 13:47] LABS: CREATININE, URINE 206.2 MG/DL; MALB URINE SIEMENS 39.0 MG/L; MAU/CREAT RATIO 18.9 MCG/MG (0.0-30.0)
[2025-05-14 13:51] LABS: VITAMIN B12 LEVEL 850 PG/ML (211-911)
[2025-05-21 13:18] LABS: RBC FOLATE 722.0 NG/ML (280-791)
== END ==
LOC: M WUC 10:25
PROVIDERS: ATTEND Student in an Organized Health Care Education/Training Program
DX: I10 Essential (primary) hypertension (principal); E53.8 Deficiency of other specified B group vitamins; D50.9 Iron deficiency anemia, unspecified

== ENCOUNTER → 2025-08-07 | Outpatient (CLI) | payer BC ==
[2025-08-07 15:07] LABS: ALT/SGPT 21 U/L (7.0-40); AST/SGOT 22 U/L (<34); C REACTIVE PROTEIN QUANTITATIV 1.13 MG/DL (<1.0); CREATININE FOR GFR 0.71 MG/DL (0.55-1.30); GLOMERULAR FILTRATION RATE > 90.0 (>45)
[2025-08-07 15:16] LABS: BASO # 0.0 10^3/uL (0.0-0.2); BASO % 0.7 % (0.0-1.0); EOS # 0.2 10^3/uL (0.0-0.5); EOS % 2.7 % (0.0-3.0); LYMPH # 1.4 10^3/uL (1.5-5.0); LYMPH % 25.7 % (24.0-44.0); MONO # 0.4 10^3/uL (0.0-0.8); MONO % 7.5 % (2.0-8.0); NEUTROPHILS # 3.5 10^3/uL (1.5-8.5); NEUTROPHILS % 62.9 % (36.0-66.0); PLATELET COUNT, AUTOMATED 297 10^3/uL (150-450)
[2025-08-07 15:28] LABS: ERYTHROCYTE SEDIMENTATION RATE 29 mm/hr (0-30)
== END ==
LOC: M PLALAB 10:18
PROVIDERS: ATTEND Nurse Practitioner
DX: Z51.81 Encounter for therapeutic drug level monitoring (principal); Z79.899 Other long term (current) drug therapy; M06.09 Rheumatoid arthritis without rheumatoid factor, multiple sites; Z79.52 Long term (current) use of systemic steroids

== ENCOUNTER → 2025-08-07 | Outpatient (CLI) | payer BC | LOC: M WHC 10:43 | PROVIDERS: ATTEND Physician Assistant | DX: M85.80 Other specified disorders of bone density and structure, unspecified site (principal); Z53.9 Procedure and treatment not carried out, unspecified reason ==

== ENCOUNTER → 2025-09-02 | Outpatient (CLI) | payer BC ==
[2025-09-02 08:42] LABS: BASO # 0.0 10^3/uL (0.0-0.2); BASO % 0.7 % (0.0-1.0); EOS # 0.2 10^3/uL (0.0-0.5); EOS % 3.4 % (0.0-3.0); LYMPH # 1.5 10^3/uL (1.5-5.0); LYMPH % 24.6 % (24.0-44.0); MONO # 0.4 10^3/uL (0.0-0.8); MONO % 7.3 % (2.0-8.0); NEUTROPHILS # 3.7 10^3/uL (1.5-8.5); NEUTROPHILS % 63.5 % (36.0-66.0); PLATELET COUNT, AUTOMATED 276 10^3/uL (150-450)
[2025-09-02 09:14] LABS: ALT/SGPT 21.0 U/L (7.0-40); AST/SGOT 21.0 U/L (<34); CALCIUM LEVEL 9.4 MG/DL (8.3-10.6); CARBON DIOXIDE LEVEL 30.0 MMOL/L (20-31); CHLORIDE LEVEL 104.0 MMOL/L (98-107); CREATININE FOR GFR 0.79 MG/DL (0.55-1.30); GLOMERULAR FILTRATION RATE 84.0 (>45); IRON (FE) 98.0 UG/DL (50-170); PERCENT SATURATION 38.3 % (13.2-45.0); POTASSIUM SERUM 3.4 MMOL/L (3.5-5.1); SODIUM LEVEL 143.0 MMOL/L (136-145)
[2025-09-02 09:15] LABS: TOTAL 25(OH) VITAMIN D 85.2 NG/ML (20.0-100.0)
[2025-09-02 09:16] LABS: VITAMIN B12 LEVEL 696.0 PG/ML (211-911)
== END ==
LOC: M LAB 08:16
PROVIDERS: ATTEND Internal Medicine Medical Oncology
DX: D50.9 Iron deficiency anemia, unspecified (principal)

== ENCOUNTER → 2025-10-23 | Outpatient (CLI) | payer BC ==
[~2025-10-23] MED LIST changes: +VITA-243 PO
== END ==
LOC: M WHC 12:57
PROVIDERS: ATTEND Physician Assistant
DX: M81.0 Age-related osteoporosis without current pathological fracture (principal)